=== PATIENT | female | born 1935 | race African-American/Black ===

== ENCOUNTER 2025-01-01 09:59 | Outpatient (AMB) | payer MEDICARE, SELFPAY ==
--- OUTSIDE RECORDS SUMMARY | 2023-07-18 10:15 | XMS_ITS ---
Author Organization [facility], [place] Address [address] [facility] [address] [place] [address] Care Team Providers Care Applications Programmer Name Role Phone Migration, Provider Unavailable Unavailable REASON FOR VISIT Follow-up Appt Encounters Encounter Location Date Provider Diagnosis [address] [place] [address] 07/18/2023 Provider Migration Plan Of Treatment Next Appt Details Provider Name:Consuelo Mukul bueno, 02/20/2025 01:45:00 PM, [address] [place] [address], Suite [facility], [place], [address], [phone] Progress Notes * LISSY PRIETOEDOB: [birth year] (89 yo F)Acc No.[id number]:07/18/2023 Progress Notes Patient: MELY LEDBETTER Provider: Dell rovider Migration :1935 A ge:88 Y S ex:Female Date:07/18/2023 Address:[address] [place], [place] [phone] Subjective: * Chief Complaints: * F ollow-up Appt * Ocular Surgical History: Objective: Vision Examination: * Electronic signature of Prov ider Migration on 01/01/2025 at 12:05 PM EDT Sign off status: Pending * Provider: Dell chamberlainvider Migration Date: 07/18/2023 Generated for Fran ng/Fafabieng/eTransmitting on: 1 12:05 PM EDT
--- OUTSIDE RECORDS SUMMARY | 2023-08-22 12:00 | XMS_ITS ---
Author Organization [facility], [place] Address [address] [facility] [address] [place] [address] Care Team Providers Care Car Pusher Name Role Phone Migration, Provider Unavailable Unavailable REASON FOR VISIT Sick Visit Encounters Encounter Location Date Provider Diagnosis [address] [address] 08/22/2023 Provider Migration Plan Of Treatment Next Appt Details Provider Name:Consuelo Mukul bueno, 02/20/2025 01:45:00 PM, [address] [place] [address], [place] [address], [place], [address], [phone] Progress Notes * LISSY PRIETOEDOB: [birth year] (89 yo F)Acc No.[id number]:08/22/2023 Progress Notes Patient: MELY LEDBETTER Provider: Dell fraser Migration :1935 A ge:88 Y S ex:Female Date:08/22/2023 Address:[address] [place], [place] [phone] Subjective: * Chief Complaints: * S ick Visit * Ocular Surgical History: Objective: Vision Examination: * Electronic signature of Prov ider Migration on 01/01/2025 at 12:05 PM EDT Sign off status: Pending * Provider: Dell fraser Migration Date: 08/22/2023 Generated for Fran javed/Yousif/eTclarasmitting on: 1 12:05 PM EDT
--- OUTSIDE RECORDS SUMMARY | 2023-10-10 07:00 | XMS_ITS ---
Author Organization [facility], [place] Address [address] [facility] [address] [place] [address] Care Team Providers Care Putty And Caulking Supervisor Name Role Phone Migration, Provider Unavailable Unavailable REASON FOR VISIT Sick Visit Encounters Encounter Location Date Provider Diagnosis [address] [address] 10/10/2023 Provider Migration Plan Of Treatment Next Appt Details Provider Name:Consuelo Mukul bueno, 02/20/2025 01:45:00 PM, [address] [place] [address], [place] [address], [place], [address], [phone] Progress Notes * LISSY PRIETOEDOB: [birth year] (89 yo F)Acc No.[id number]:10/10/2023 Progress Notes Patient: EMLY LEDBETTER Provider: Dell fraser Migration :1935 A ge:88 Y S ex:Female Date:10/10/2023 Address:[address] [place], [place] [phone] Subjective: * Chief Complaints: * S ick Visit * Ocular Surgical History: Objective: Vision Examination: * Electronic signature of Prov ider Migration on 01/01/2025 at 12:05 PM EDT Sign off status: Pending * Provider: Dell fraser Migration Date: 0 10/10/2023 Generated for Fran javed/Yousif/eTransmitting on: 1 12:05 PM EDT
--- OUTSIDE RECORDS SUMMARY | 2023-11-30 06:00 | XMS_ITS ---
Author Organization [facility] [place] Address [address] [facility] [address] [place] [address] Care Team Providers Care Adjunct Communications Faculty Member Name Role Phone Migration, Provider Unavailable Unavailable REASON FOR VISIT CPX Encounters Encounter Location Date Provider Diagnosis [address] [address] 11/30/2023 Provider Migration Plan Of Treatment Next Appt Details Provider Name:Consuelo Mukul bueno, 02/20/2025 01:45:00 PM, [address] [place] [address], [place] [address], [place], [address], [phone] Progress Notes * CONNER, BESSIEDOB: [birth year] (89 yo F)Acc No.[id number]:11/30/2023 Progress Notes Patient: MELY LEDBETTER Provider: Dell fraser Migration :1935 A ge:88 Y S ex:Female Date:11/30/2023 Address:[address] [place], [place] [phone] Subjective: * Chief Complaints: * C PX * Ocular Surgical History: Objective: Vision Examination: * Electronic signature of Prov ider Migration on 01/01/2025 at 12:04 PM EDT Sign off status: Pending * Provider: Dell fraser Migration Date: 0 11/30/2023 Generated for Fran javed/Yousif/eTransmitting on: 1 12:04 PM EDT
--- OUTSIDE RECORDS SUMMARY | 2024-02-29 11:45 | XMS_ITS ---
Author Organization [facility], [place] Address [address] [facility] [address] [place] [address] Care Team Providers Care Illuminating Engineer Name Role Phone Migration, Provider Unavailable Unavailable REASON FOR VISIT Follow-up Appt Encounters Encounter Location Date Provider Diagnosis [address] [place] [phone] 02/29/2024 Provider Migration Plan Of Treatment Next Appt Details Provider Name:Consuelo Mukul Adentaz myles, 02/20/2025 01:45:00 PM, [address] [place] [address], Suite [facility], [place], [address], [phone] Progress Notes * LISSY PRIETOEDOB: [birth year] (89 yo F)Acc No.[id number]:02/29/2024 Progress Notes Patient: MELY LEDBETTER Provider: Dell chamberlainvider Migration :1935 A ge:88 Y S ex:Female Date:02/29/2024 Address:[address] [place], [place] [phone] Subjective: * Chief Complaints: * F ollow-up Appt * Ocular Surgical History: Objective: Vision Examination: * Electronic signature of Prov ider Migration on 01/01/2025 at 12:04 PM EDT Sign off status: Pending * Provider: Dell chamberlainvider Migration Date: 05/01/2023 Generated for Fran ng/Fafabieng/eTransmitting on: 12:04 PM EDT
--- OUTSIDE RECORDS SUMMARY | 2024-03-04 10:00 | XMS_ITS ---
Author Organization [facility], [place] Address [address] [facility] [address] [place] [address] Care Team Providers Care Casket Assembler Metal Name Role Phone Migration, Provider Unavailable Unavailable REASON FOR VISIT Follow-up Appt Encounters Encounter Location Date Provider Diagnosis [address] [place] [address] 03/04/2024 Provider Migration Plan Of Treatment Next Appt Details Provider Name:Consuelo Mukul Adentaz myles, 02/20/2025 01:45:00 PM, [address] [place] [address], Suite [facility], [place], [address], [phone] Progress Notes * LISSY PRIETOEDOB: [birth year] (89 yo F)Acc No.[id number]:03/04/2024 Progress Notes Patient: MELY LEDBETTER Provider: Dell rovider Migration :1935 A ge:88 Y S ex:Female Date:03/04/2024 Address:[address] [place], [place] [phone] Subjective: * Chief Complaints: * F ollow-up Appt * Ocular Surgical History: Objective: Vision Examination: * Electronic signature of Prov ider Migration on 01/01/2025 at 12:05 PM EDT Sign off status: Pending * Provider: Dell chamberlainvider Migration Date: Generated for Fran ng/Fafabieng/eTransmitting on: 12:05 PM EDT
--- OUTSIDE RECORDS SUMMARY | 2024-07-01 06:00 | XMS_ITS ---
Author Organization [facility], [place] Address [address] [facility] [address] [place] [address] Care Team Providers Care Rolling Machine Operator Automatic Name Role Phone Kenneth Parks Unavailable [phone] REASON FOR VISIT Follow-up Appt Encounters Encounter Location Date Provider Diagnosis [address] [place] [phone] 07/01/2024 Kenneth Parks Plan Of Treatment Next Appt Details Provider Name:Consuelo bueno, 02/20/2025 01:45:00 PM, [address] [place] [address], Suite [facility], [place], [address], [phone] Progress Notes * SAHIL PRIETOOB: [birth year] (89 yo F)Acc No.[id number]:07/01/2024 Progress Notes Patient: MELY LEDBETTER Provider: Oli PAULINO :1935 A ge:89 Y S ex:Female Date:07/01/2024 Address:[address] [place], [place] [phone] Subjective: * Chief Complaints: * F ollow-up Appt * Ocular Surgical History: Objective: Vision Examination: * Electronic signature of Florencio Parks PA-C on 01/01/2025 at 12:05 PM EDT Sign off status: Pending * Provider: Oli PAULINO Date: 0 07/01/2024 Generated for Printi ng/Faxing/eTransmitting on: 1 12:05 PM EDT
--- NOTE | 2025-01-01 10:11 | A.OFFVIS_ITS ---
Vital Signs 01/01/25 10:24 Height 5 ft 6.5 in Weight 141 lb BMI 22.4 BP 138/70 Blood Pressure Location Rt brachial Position Sitting Respiration 16 Pulse 37 L Pulse Source Pulse Oximeter Pulse Oximetry (%) 99 Oxygen Delivery Method Room Air Comment provider is aware of low pulse Intake Visit Reasons: DEMENTIA Director Hardware Required: No Accompanied by: Son Allergies yellow dye Allergy (Unknown, Verified 01/01/25 10:13) Unknown Medication List - Last Reconciled 01/01/25 by Rozina Mello CNP albuterol sulfate 90 mcg/actuation 1 puff inhalation Q4H PRN atorvastatin 40 mg PO DAILY guqdidgwcss-kpskqnavr-nkmtvmkl 200-62.5-25 mcg (Trelegy Ellipta) 1 ea inhalation DAILY losartan-hydrochlorothiazide 50-12.5 mg 1 tab PO DAILY HPI Comments Details: Cee is an 89 year old female patient with a past medical history of asthma, cancer, COPD, and hypertension who is presenting to the clinic today for increased forgetfulness. She is accompanied today by her son. Together they report that over the course over the last 6 months she has had an increase in gait instability and some forgetfulness. Her family has noticed some intermittent forgetfulness over the course of the last year or 6 months. She will occasionally forget names of her children but this is rare. She generally uses a walking stick with 4 legs on the bottom. She does feel less stable over the course of the last 6 months or so and and attributes that to some lack of activity more recently. Physical therapy in the home was ordered for her gait and it was felt that PT made a small difference in her walking. She had a fall on the stairs in May and again about 1 month ago when she was walking, lost her balance and was able to brace herself on the wall. Her has severe Alzheimers Dementia and family is living in the home with them. Memory evaluation: Onset of memory changes: Changes over the last 6 months or so Rate of progression: Slow Cognitive: Difficulty remembering upcoming events:Yes Getting lost:Does not walk or drive alone Difficulty keeping track of time:No Difficulty finding appropriate words:Sometimes Difficulty making decisions or problem-solving:No Functional: Difficulty writing checks, paying bills: Family has taken over her finances Difficulty driving a car:Does not drive Difficulty shopping alone:Family goes grocery shopping for her Difficulty performing household tasks:Yes, family assists with this Difficulty managing own medications:Family assists Difficulty pursuing hobbies/leisure activities:Yes, due to her own health and 's health Change in gait:Yes, she feels weaker and less balanced Social activities: Difficulty holding conversation: No Decreased social activity with family/friends:No Less cooperative:No Less aware of others feeling/her full:No Less concerned about bathing/dressing/grooming: No Behavioral: Sad, depressed:No Anxious, worried:No Inpatient, fidgety:No Acts impulsively, disinhibited:No Change appetite or weight:No Change in sleep pattern, daytime fatigue:No Hallucinations:No PFSH Medical History (Updated 01/01/25 @ 10:58 by Rozina Mello CNP) Asthma Forgetfulness Essential hypertension HLD (hyperlipidemia) COPD (chronic obstructive pulmonary disease) Surgical History (Updated 01/01/25 @ 10:11 by Heri Monge CMA) Previous back surgery H/O: hysterectomy Review of Systems Const All systems reviewed & are unremarkable except as noted in HPI and below Physical Exam Vital Signs: Last Vital Signs Pulse 37 L 01/01/25 10:24 Resp 16 01/01/25 10:24 BP 138/70 01/01/25 10:24 Pulse Ox 99 01/01/25 10:24 Oxygen Delivery Method Room Air 01/01/25 10:24 BMI result Body Mass Index 22.4 Const General: cooperative, healthy appearing, comfortable and no acute distress Nutritional Appearance: well nourished Orientation/consciousness: patient oriented x3 Limitations: no limitations HEENT Head: Yes normal to inspection and Yes normocephalic Eyes General: appearance normal, both eyes and all related structures Visual Navarro: normal visual navarro by confrontation Alignment and Position: alignment normal Periorbital: periorbital findings normal Eyelids: Yes eyelids normal Conjunctivae: conjunctivae normal Sclerae: sclerae normal Neuro General: patient oriented x3 and tone normal Cranial nerves: Yes CN's II-XII intact bilaterally Gait exam (Neuro): Wide-based gait present, Assisted gait required Gait assisted method: walker and Other gait observations present (Slow ) Motor exam (neuro): no tremor noted Romberg Test: Negative Pupils: Normal pupillary reactivity/response: bilateral Psych Appearance: grossly normal Mental Status: mental status grossly normal Speech and movement: Normal speech and movement present and Clear speech present Affect: normal affect Attitude: cooperative Thought process: Normal thought process present Thought content: Normal thought content present Insight: Good insight present (Psych) Judgement: Good judgement present (Psych) Assessment & Plan Assessment & Plan (1) Gait instability: Code(s): R26.81 - Unsteadiness on feet Category: Medical (2) Memory change: Code(s): R41.3 - Other amnesia Category: Medical Plan Cee is an 89 year old female patient with a past medical history of asthma, cancer, COPD, and hypertension who is presenting to the clinic today for increased forgetfulness. She is accompanied today by her son. Overall there has been some notable changes to her memory over the course of the last 6 months or so. She is living home with her who has advanced A lzheimer's dementia but 1 of her sons does live with them and assists with all of the affairs around the home. Her MMSE score today was 22/30. We discussed if whether or not she would like to start on any medications for her day-to-day cognitive functioning but patient family declined. There was no indication for any medication for mood management at this time. For now, they are looking to ensure that there was nothing else underlying going on that can be prevented in terms of her memory. For now, we will proceed with CT of the brain to evaluate for degree of atrophy, ventricle size, and white matter disease. We will also perform labs including a B12 and TSH level. We will follow up in approximately 6 weeks after her testing has been completed. -ct brain -labs:b12, tsh Orders: Orders Vitamin B12 01/01/25 R26.81 - Unsteadiness on feet, R41.3 - Other amnesia TSH reflex Free T4 01/01/25 R26.81 - Unsteadiness on feet, R41.3 - Other amnesia CT head/brain wo IV con Today R26.81 - Unsteadiness on feet, R41.3 - Other am nesia Methylmalonic Acid 01/01/25 R26.81 - Unsteadiness on feet, R41.3 - Other amnesia Coding Level of Care Code New Pt Level 4 (86161) Diagnoses Gait instability R26.81 Memory change R41.3
[2025-01-01 10:24] VITALS: BP 138/70; PULSE 37; RESP 16; O2SAT 99; BMI 22.4
--- OUTSIDE RECORDS SUMMARY | 2025-01-01 12:04 | XMS_ITS ---
Author Name [facility] Organization Unknown Encounters Encounter Type Encounter Reason Primary Diagnosis Location Date Ambulatory [facility] 05/06/2024 Care Team Organization Name Specialty Phone Email Start Date End Da te [facility] 2024 [facility] 09/21/2023 [facility] 01/11/2022
--- OUTSIDE RECORDS SUMMARY | 2025-01-01 12:04 | XMS_ITS | Patient Health Record ---
Author Organization [facility] Address [address] [place] [address] Care Team Providers Care Overhead Crane Truck Loader Name Role Phone JelaniKenneth lima Unavailable [phone] Migration, Provider Unavailable Unavailable Shilpa Joya Unavailable [phone] Consuelo Can Unavailable [phone] Allergies No Known Allergies Reason For Referral Reason pt presents with son who requests she see Dr. 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) Referral Organization [facility] Referring Provider First Name Consuelo Referring Provider Last Name Can Referred Provider Specialty Neurology Referral Priority Routine Reason Patient's son believ es she is aspirating Diagnosis 1 Pneumonitis due to i nhalation of food and vomit (J69.0) Referral Organization [facility] Referring Provider First Name Consuelo Referring Provider Last Name Pamella Referred Provider Specialty Speech and l anguage therapist Referral Priority Routine Reason worsening COPD Diagnosis 1 COPD, 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) Referral Organization [facility] Referring Provider First Name Consuelo Referring Provider Last Name Can Referred Provider Specialty Pulmonary Di seases Referral Priority Routine Reason Patient Need attenti on to her thickened nails and has seen this practice previously. Dr. Kana Giron Diagnosis 1 Onychogryphosis (L60 .2) Referral Organization [facility] Referring Provider First Name Consuelo Referring Provider Last Name Can Referred Provider Specialty Podiatry Referral Priority Routine Medications Medication SIG (Take, Route, Frequency, Duration) Notes Start Date End Date Status Losartan Potassium 50 MG Tablet 1 tablet Orally Once a day Active Caltrate 600+D Plus Minerals Active Azelastine-Fluticasone 137-50 MCG/ACT Suspension 1 spray in each nostril Nasally Twice a day Active Aspirin 81 MG Tablet Chewable 1 tablet Orally Once a day Active amLODIPine Besylate 10 MG Tablet 1 tablet Orally Once a day Active Ventolin HFA 108 (90 Base) MCG/ACT Aerosol Solution 1 puff as needed Inhalation every 4 hrs; Duration: 90 days As needed Active Atorvastatin Calcium 40 MG Tablet Take 1 tablet by mouth once daily Orally Once a day; Duration: 30 days Active Losartan Potassium-HCTZ 50-12.5 MG Tablet 1 tablet Orally Once a day; Duration: 90 days 11/20/2024 Active Trelegy Ellipta 200-62.5-25 MCG/ACT Aerosol Powder Breath Activated 1 puff Inhalation Once a day; Duration: 90 days Active Azithromycin 250 MG Tablet as directed Orally 3 days left Active prednisoLONE Not-Jc ing Cefuroxime Sodium 7 days left Active Albuterol Sulfate (2.5 MG/3ML) 0.083% Nebulization Solution 3 mL as needed Inhalation every 6 hrs; Duration: 90 days 12/25/2024 Active Social History Section Notes: drink: no smoke: no Problems Problem Type SNOMED Code ICD Code Onset Dates Problem Status W/U Status Risk Notes Problem Hyperlipidemia (46095016) Hyperlipidemia, unspecified (E78.5) Active confirmed Problem Essential hypertension (94616962) Essential (primary) hypertension (I10) Active confirmed Problem Uncomplicated asthma (disorder) (400785541) Unspecified asthma, uncomplicated (J45.909) Active confirmed Problem Chronic obstructive pulmonary disease (14255280) COPD, 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) Active confirmed Problem Acute exacerbation of chronic obstructive airways disease (778176337) COPD exacerbation (J44.1) Active confirmed Problem Chronic obstructive pulmonary disease (39319242) COPD, moderate (J44.9) Active confirmed Vital Signs Heart Rate 40 /min 12/25/2024 Temperature 98.6 degrees Fahrenheit 11/08/2024 Respiratory Rate 14 /min 12/25/2024 Oximetry 100 % 12/25/2024 Blood pressure diastolic 66 mm Hg 12/25/2024 Weight-kg 57.7 kg 12/25/2024 Blood pressure systolic 158 mm Hg 12/25/2024 Weight 127.2 lbs 12/25/2024 Encounters Encounter Location Date Provider Diagnosis [address] [address] 02/29/2024 Provider [facility], [address] [address] 03/04/2024 Provider [facility], [address] [address] 07/01/2024 Kenneth Parks [facility] [address] [address] 10/30/2024 Consuelo Can Unspecified asthma, uncomplicated J45.909 [facility], [address] [address] 11/08/2024 Consuelo Can COPD, severe J44.9 ; Hyperlipidemia, unspecified E78.5 ; Essential (primary) hypertension I10 and Hospital discharge follow-up Z09 [facility], [address] [address] 12/25/2024 Consuelo Can COPD, severe J44.9 [facility], [address] [address] 11/20/2024 Shilpa Joya [facility], [address] [address] 11/06/2024 Consuelo Can [facility], [address] [address] 12/09/2024 Consuelo Can [facility], [address] [address] 12/09/2024 Shilpa Joya Assessments Encounter Date Diagnosis (ICD Code) Assessment Notes Treatment Notes Treatment Clinical Notes Section Notes 10/30/2024 Unspecified asthma, uncomplicated (ICD-10 - J45.909) patient telemedicine for refill of rx 11/08/2024 Hyperlipidemia, unspecified (ICD-10 - E78.5) patient into th e office today for a hospital er follow up. She presents with her son. He is requesting referrals to Dr. Thompson at neurology, Sleep study for swallow eval and referral to pulmonary 11/08/2024 COPD, severe (ICD-10 - J44.9) patient into th e office today for a hospital er follow up. She presents with her son. He is requesting referrals to Dr. Thompson at neurology, Sleep study for swallow eval and referral to pulmonary 12/25/2024 COPD, severe (ICD-10 - J44.9) Electronic Prior Authorization was requested for Albuterol Sulfate (2.5 MG/3ML) 0.083% Nebulization Solution. Provider can order medication once approval received. Written order for Nebulizer and all required supplies faxed to [facility] Patient into the office today with her son as prompted by [facility] and most recent hospitalization to obtain a nebulizer machine. 11/08/2024 Essential (primary) hypertension (ICD-10 - I10) patient into the office today for a hospital er follow up. She presents with her son. He is requesting referrals to Dr. Thompson at neurology, Sleep study for swallow eval and referral to pulmonary 11/08/2024 Hospital discharge follow-up (ICD-10 - Z09) patient into the office today for a hospital er follow up. She presents with her son. He is requesting referrals to Dr. Thompson at neurology, Sleep study for swallow eval and referral to pulmonary Plan Of Treatment Next Appt Details Provider Name:Consuelo bueno, 02/20/2025 01:45:00 PM, [address] [facility], [address], [place], [address], [phone] Insurance Providers Payer Name Payer Address Payer Phone Subscriber Number Group Number Insured Name Patient Relationship to Insured Coverage Start Date Coverage End Date [employer] [address] [place] [address] [id number] MELY RICHARDSON Self - patient is the insured [facility] Options [address] [place] [address] [id number] MELY RICHARDSON Self - patient is the insured Medical (General) History Hospitalization History Reason Date(Month/Year) breathing trouble 2024
--- OUTSIDE RECORDS SUMMARY | 2025-01-01 12:04 | XMS_ITS | Encounter Summary ---
Author Organization [facility] Address [address] [place] [address] Phone Care Team Providers Care Brick Tender Name Role Phone Zhao Mendoza MD Primary Care Provider + Zhao Mccabe MD Unavailable [phone] Eugene Márquez MD Unavailable [phone] Solo Hanley MD Unavailable [phone] Encounter Details Date Type Department Care Team (Late st Contact Info) Description 04/18/2017 Procedure Pass [facility] [address] [place] [address] Social History Tobacco Use Types Packs/Day Years Used Date Smoking Tobacco: Former Cigarettes 0.3 22 1 03/07/1993 - 01/06/2016 Smokeless Tobacco: Never Alcohol Use Standard Drinks/Week Comments No 0 (1 standard drink = 0.6 oz pur e alcohol) Comments Unknown Sex and Gender Information Value Date Recorded Sex Assigned at Not on file Legal Sex Female 7:31 PM EST Gender Identity Not on file Sexual Orientation Not on file documented as of this encounter Plan of Treatment Upcoming Encounters Date Type Department Care Team (Late Contact Info) Description 02/06/2024 Procedure Pass [facility] - CT, [facility] [place] [address] [place] [address] 02/06/2024 Procedure Pass [facility] - CT, [place] [facility] [address] [place] [address] 02/05/2025 1:30 PM EST Appointment [facility] - CT, [place] [facility] [address] [place] [address] Solo Hanley MD [address] [place] [address] [email or web address] 02/05/2025 2:00 PM EST Appointment [facility] - CT, [place] [facility] [address] [place] [address] Solo Hanley MD [address] [place] [address] [email or web address] 02/17/2025 11:00 AM EST Telemedicine Department of Urology [address] [address] O'Marifer, Naina Russell, DETONATOR MAKER [address] [address] [email or web address] documented as of this encounter Visit Diagnoses Not on filedocumented in this encounter Care Teams Brick Tender Relationship Specialty Start Date End Date Zhao Mendoza MD [address] [place] [address] [address] [place] [address] PCP - General 09/03/13 Zhao Mccabe MD [address] [facility] [address] [place] [address] Cardiology 08/19/14 Eugene Márquez MD [address] [place] [address] Division [place] [address] [email or web address] 11/06/14 Sloo Hanley MD [address] [place] [address] [email or web address] Urology 03/22/18 documented as of this encounter Additional Source Comments The information contained in this document represents components of the legal health record. It is not the complete legal health record.[facility]
--- OUTSIDE RECORDS SUMMARY | 2025-01-01 12:05 | XMS_ITS | Encounter Summary ---
Author Organization [facility] Address [address] [place] [address] Phone Care Team Providers Care Contact Lens Manufacturer Name Role Phone Zhao Mendoza MD Primary Care Provider + Zhao Mccabe MD Unavailable [phone] Eugene Márquez MD Unavailable [phone] Solo Hanley MD Unavailable [phone] Encounter Details Date Type Department Care Team (Late st Contact Info) Description 06/06/2017 Procedure Pass [facility]. [facility] [address] [facility] [facility] 1st [place] [address] Social History Tobacco Use Types Packs/Day Years [...] Encounters Date Type Department Care Team (Late st Contact Info) Description 02/06/2024 Procedure Pass [facility] - [facility], [facility] [address] [place] [address] 02/06/2024 Procedure Pass [facility] - CT, [facility] [address] [place] [address] 02/05/2025 1:30 PM EST Appointment [facility] - [place], [facility] [address] [place] [address] Solo Hanley MD [address] [place] [phone] [email or web address] 02/05/2025 2:00 PM EST Appointment [facility] - CT, [facility] [address] [place] [address] Solo Hanley MD [address] [place] [address] 02/17/2025 11:00 AM EST Telemedicine Department of Urology [address] [place] [address] O'Marifer, Naina Russell, [employer] MAKER [address] [address] [email or web address] documented as of this encounter Visit Diagnoses Not on filedocumented in this encounter Care Teams Contact Lens Manufacturer Relationship Specialty Start Date End Date Zhao Mendoza MD 299 [facility] [address] [place] [address] PCP - General 09/03/13 Zhao Mccabe MD 300 [facility] [address] [place] [address] Cardiology 08/19/14 Eugene Márquez MD [address] [place] [address] Division [place] [address] [email or web address] 11/06/14 Solo Hanley MD [address] [place], [place] [address] [place] [address] [email or web address] Urology 03/22/18 documented as of this encounter Additional Source Comments The information contained in this document represents components of the legal health record. It is not the complete legal health record.[facility]
--- OUTSIDE RECORDS SUMMARY | 2025-01-01 12:05 | XMS_ITS | Clinical Summary ---
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 Remove & discard patch within 12 hours or as directed by MD. 30 patch 5 Active fluticasone propionate (FLONASE) 50 mcg/actuation nasal spray Administer 1 spray into each nostril 2 (two) times a day. Shake gently. Before first use, prime pump. After use, clean tip and replace cap. 16 g 5 Active atorvastatin (LIPITOR) 40 mg tablet Take 1 tablet (40 mg total) by mouth 1 (one) time each day. Active losartan-hydroC HLOROthiazide (HYZAAR) 50-12.5 mg per tablet Take 1 tablet by mouth 1 (one) time each day. Active Ventolin HFA 90 mcg/actuation inhaler Inhale 2 puffs by mouth 4 (four) times a day if needed for wheezing or shortness of breath. 6.7 g 11 5 Active predniSONE (DELTASONE) 50 mg tablet Take 1 tablet (50 mg total) by mouth 1 (one) time each day for 4 days. 4 each 5 12/10/19 25 Active Problems Problem Noted Date Diagnosed Date Pneumonia 11/03/2024 COPD with acute exacerbation ([facility] V24, [facility] V28) 08/03/2024 Encounters Date Type Department Care Team Description 12/04/2024 2:04 AM EDT - 12/04/2024 7:06 AM EDT Emergency [facility] Emergency [address] [place] [phone] Mariano Newton MD COPD exacerbation ([facility], [facility] V[facility]) (Primary Dx) Discharge Disposition: Home or Self Care 11/05/2024 1:15 AM EDT - 11/05/2024 2:24 AM EDT Emergency [facility] Emergency [address] [place] [phone] Cain Hernandez MD COPD exacerbation ([facility], [facility] V28) (Primary Dx); Community acquired pneumonia of right lung, unspecified part of lung Discharge Disposition: Home or Self Care 11/03/2024 5:27 AM EDT - 11/04/2024 12:21 PM EDT Hospital Encounter [facility] Urology Unit [address] [place] [phone] Samir Raza MD Muhoozi, Bannet, MD Bukalo, Nermina, MD Alam, Aroosa, MD COPD exacerbation ([facility] V[facility], [facility] V28) (Primary Dx); Respiratory infection; Pneumonia of right lower lobe due to infectious organism Discharge Disposition: Home-Health Care [facility] from Last 3 Months Surgical History Surgery Date Site/Laterality Comments BREAST LUMPECTOMY Left Medical History Medical History Date Comments Hypertension Asthma A-fib ([facility] V24, [facility] V28) Hyperlipidemia COPD (chronic obstructive pulmonary disease) ([facility] V24, [facility] V[facility]) Social History Tobacco Use Types Packs/Day Years Used Date Smoking Tobacco: Former Cigarettes Smokeless Tobacco: Never Tobacco Cessation:Counseling Given: Not Answered Alcohol Use Standard Drinks/Week Comments Not Currently 0 (1 standard drink = 0.6 oz pur e alcohol) Housing Instability Answer Date Recorde d Are you worried that in the next 2 months you may not have stable housing? No 08/03/2024 Food Access & Nutrition Answer Date Rec orded Do you have access to a vari ety of food including fruits and vegetables? No 08/03/2024 Access to Healthcare Answer Date Record ed Within the last 3 months, ho w many times did you visit the emergency department for your medical care? 2 08/03/2024 Health Literacy Answer Date Recorded How often do you need to hav e someone help you when you read instructions, pamphlets, or other written material from your doctor or pharmacy? Never 08/03/2024 Caregiver: How often do you need to have someone help you when you read instructions, pamphlets, or other written material from your doctor or pharmacy? Not on file 08/03/2024 Financial Risk Answer Date Recorded How hard is it for you to pa y for the very basics like food, housing, medical care, and air conditioning / heating? Not very hard 08/03/2024 Transportation Answer Date Recorded Has the lack of transportati on kept you from meetings, work, or from getting things needed for daily living? No Has the lack of transportati on kept you from medical appointments or from getting medications? No 08/03/2024 Social Isolation Answer Date Recorded How often do you feel lonely or isolated from those around you? Sometimes 08/03/2024 Food Risk Answer Date Recorded Within the past 12 months we worried whether our food would run out before we got money to buy more. Never true 08/03/2024 Within the past 12 months th e food we bought just didn't last and we didn't have money to get more. Never true 08/03/2024 Dependent Care Answer Date Recorded Do you need help finding or paying for care for your loved ones. For example, child and family services specialist or elderly care for an older adult? No 08/03/2024 Education Answer Date Recorded Do you think completing more education or training, like finishing a GED, going to college, or learning a trade, would be helpful for you? No 08/03/2024 Employment and Income Answer Date Recor ded During the last four weeks, have you been actively looking for work? No 08/03/2024 Interpersonal Safety Answer Date Record ed Physical Abuse Unrecognized value 11/03/2024 Verbal Abuse Unrecognized value 11/03/2024 Comments No Sex and Gender Information Value Date Recorded Sex Assigned at Female 06/22/2024 5:23 PM EDT Legal Sex Female 12:30 PM EST Gender Identity Female 06/22/2024 5:23 PM EDT Sexual Orientation Straight 06/22/2024 5: 23 PM EDT Obstetrics History Last Filed Vital Signs Vital Sign Reading Time Taken Comments Blood Pressure 154/79 12/04/2024 2:24 AM EDT Pulse 59 12/04/2024 2:24 AM EDT Temperature 36.6 C (97.9 F) 12/04/2024 2:24 AM EDT Respiratory Rate 18 12/04/2024 2:24 AM EDT Oxygen Saturation 98% 12/04/2024 2:24 AM EDT Inhaled Oxygen Concentration - - Weight 59.4 kg (131 lb) 12/04/2024 2:52 AM EDT Height 167.6 cm (5' 6 ) 12/04/2024 2:52 AM EDT Body Mass Index 21.14 12/04/2024 2:52 AM EDT Plan of Treatment Health Maintenance Due Date Last Done Comments DTaP,Tdap,and Td Vaccines (1 - Tdap) 1954 Pneumococcal Vaccine: 50+ Years (1 of 2 - PCV) 1954 Zoster Vaccines (1 of 2) 1954 RSV Immunization Adult Patients (1 - 1-dose 75+ series) 2012 Cholesterol Screening (Lipid Panel) 02/01/2022 Medicare Annual Wellness Visit 02/15/2023 02/15/2022 Depression Screening 03/06/2024 COVID-19 Vaccine ( season) 2024 09/23/2021, 12/29/2020, 06/17/2020, Additional history exists Influenza Vaccine (#1) 2024 , 01/14/2021, 12/05/2019, Additional history exists Social Influencers of Health Screening 08/03/2025 08/03/2024 Falls Risk Assessment 11/04/2025 11/04/2024 Hypertension/CHF/CAD Annual BMP Blood Test 12/04/2025 12/04/2024, 11/04/2024, 11/03/2024, Additional history exists Osteoporosis Screening (Bone Density Screening) 11/25/2027 11/24/2017 HIB Vaccines Aged Out No longer eligi ble based on patient's age to complete this topic HPV Vaccines Aged Out No longer eligi ble based on patient's age to complete this topic Hepatitis A Vaccines Aged Out No long er eligible based on patient's age to complete this topic Hepatitis B Vaccines Aged Out No long er eligible based on patient's age to complete this topic IPV Vaccines Aged Out No longer eligi ble based on patient's age to complete this topic MMR Vaccines Aged Out No longer eligi ble based on patient's age to complete this topic Meningococcal ACWY Vaccine Aged Out N o longer eligible based on patient's age to complete this topic Meningococcal B Vaccine Aged Out No l onger eligible based on patient's age to complete this topic RSV Immunization Patients Under 20 months Aged Out No longer eligible based on patient's age to complete this topic Varicella Vaccines Aged Out No longer eligible based on patient's age to complete this topic Procedures Procedure Name Priority Date/Time Associated Diagnosis Comments ECG ANNOTATED 12/05/2024 XR CHEST 1 VIEW STAT 12/04/2024 3:37 AM EDT ECG 12-LEAD STAT 12/04/2024 3:24 AM EDT RESPIRATORY VIRUS PANEL MOLECULAR STUDY STAT 12/04/2024 3:16 AM EDT CBC WITH AUTO DIFFERENTIAL STAT 12/04/2024 3:14 AM EDT B-TYPE NATRIURETIC PEPTIDE STAT 12/04/2024 3:14 AM EDT CBC AND DIFFERENTIAL STAT 12/04/2024 3:14 AM EDT COMPREHENSIVE METABOLIC PANEL STAT 12/04/2024 3:14 AM EDT COMPLETE BLOOD COUNT Routine 11/04/2024 7:02 AM EDT BASIC METABOLIC PANEL Routine 11/04/2024 7:02 AM EDT URINALYSIS WITH REFLEX MICROSCOPIC STAT 11/03/2024 8:14 PM EDT URINALYSIS WITH REFLEX MICROSCOPIC STAT 11/03/2024 8:14 PM EDT OXYGEN THERAPY, ADULT Routine 11/03/2024 10:27 AM EDT OXYGEN THERAPY, ADULT Routine 11/03/2024 10:[address] CHEST WO CONTRAST STAT 11/03/2024 9:47 AM EDT B-TYPE NATRIURETIC PEPTIDE STAT 11/03/2024 8:13 AM EDT TROPONIN I HIGH SENSITIVITY STAT 11/03/2024 8:13 AM EDT XR CHEST 2 VIEWS STAT 11/03/2024 6:50 AM EDT ECG 12-LEAD STAT 11/03/2024 6:07 AM EDT RESPIRATORY VIRUS PANEL MOLECULAR STUDY STAT 11/03/2024 6:01 AM EDT CBC WITH AUTO DIFFERENTIAL STAT 11/03/2024 5:58 AM EDT CBC AND DIFFERENTIAL STAT 11/03/2024 5:58 AM EDT BASIC METABOLIC PANEL STAT 11/03/2024 5:58 AM EDT LACTATE, WITH REFLEX STAT 11/03/2024 5:58 AM EDT CULTURE BLOOD STAT 11/03/2024 5:58 AM EDT CULTURE BLOOD STAT 11/03/2024 5:58 AM EDT MEKHI DEXA AXIAL SKELETON Routine 11/24/2017 8:34 AM EDT Encounter for screening for osteoporosis from Last 3 Months or Most Recently Relevant to Health Maintenance Results * ECG-Annotated (12/05/2024) us Provider Onbase MD ECG ORDERABLES Final Result * XR Chest 1 View (12/04/2024 3:37 AM EDT) Anatomical Region Laterality Modality Body Radiographic Lay ging 12/04/2024 9:38 AM EDT Impressions 12/04/2024 9:40 AM EDT Impression: 1. Stable borderline cardiomegaly. 2. Lungs grossly clear. Telerad JEFFERSON ([id number]) -------- FINAL REPORT -------- Dictated By: Steph Garcia Dictated Date: 12/04/2024 09:38 ET Assigned Physician: Steph Garcia Reviewed and Electronically Signed By: Steph Garcia Signed Date: 12/04/2024 09:40 ET Workstation ID: [id number] Transcribed By: Self Edit Transcribed Date: 12/04/2024 09:38 ET Narrative 12/04/2024 9:40 AM EDT History: Dyspnea and cough. Comparison: 11/03/24 Findings: Portable semiupright AP chest at 3:26 AM. The cardiac silhouette remains borderline enlarged. Atherosclerotic calcification is seen in the aortic arch. Surgical clips are again seen in the left hilum. The lungs are grossly clear. Procedure Note Steph Garcia MD - 12/04/2024 History: Dyspnea and cough. Comparison: 11/03/24 Findings: Portable semiupright AP chest at 3:26 AM. The cardiac silhouette remainsborderline enlarged. Atherosclerotic calcification is seen in the aorticarch. Surgical clips are again seen in the left hilum. The lungs aregrossly clear. IMPRESSION: Impression: 1. Stable borderline cardiomegaly. 2. Lungs grossly clear. Telerad JEFFERSON ([id number]) -------- FINAL REPORT -------- Dictated By: Steph Garcia Dictated Date: 12/04/2024 09:38 ET Assigned Physician: Steph Garcia Reviewed and Electronically Signed By: Stehp Garcia Signed Date: 12/04/2024 09:40 ET Workstation ID: [id number] Transcribed By: Self Edit Transcribed Date: 12/04/2024 09:38 ET Mariano Newton MD IMG XR PROCEDURES Final Resu lt * 12-Lead ECG (12/04/2024 3:24 AM EDT) Only the most recent of2 resultswithin the time period is included. [facility] Ventricular Rate ECG 56 BPM GEMUSE Atrial Rate 56 BPM GEMUSE P-R Interval 156 ms GEMUSE QRS Duration 100 ms GEMUSE Q-T Interval 454 ms GEMUSE QTc 438 ms GEMUSE R [place] -30 degrees GEMUSE T [place] -107 degrees GEMUSE ECG Interpretation Sinus bradycardia Left axis deviation Minimal voltage criteria for LVH, may be normal variant T wave abnormality, consider inferior ischemia T wave abnormality, consider anterolateral ischemia Abnormal ECG When compared with ECG of 03-NOV-2024 06:07, Sinus rhythm has replaced Atrial fibrillation Inverted T waves have replaced nonspecific T wave abnormality in Inferior leads Inverted T waves have replaced nonspecific T wave abnormality in Anterolateral leads QT has lengthened Confirmed by CAIN DOTY ([id number]) on 12/05/2024 5:37:12 PM GEMUSE 12/04/2024 3:24 AM EDT 12/05/2024 5:37 PM EDT Mariano Newton MD ECG ORDERABLES Final Result GEMUSE * Respiratory virus panel molecular study (12/04/2024 3:16 AM EDT) Only the most recent of2 resultswithin the time period is included. [facility] Adenovirus Detection by PCR Not Detected Not Detected LAB MICROBIOLOGY METHOD 12/04/2024 5:55 AM EDT [facility] Influenza A PCR Not Detected Not Detected LAB MICROBIOLOGY METHOD 12/04/2024 5:55 AM EDT [facility] Influenza B PCR Not Detected Not Detected LAB MICROBIOLOGY METHOD 12/04/2024 5:55 AM EDT [facility] Coronavirus 229E Not Detected Not Detected LAB MICROBIOLOGY METHOD 12/04/2024 5:55 AM EDT [facility] Coronavirus HKU1 Not Detected Not Detected LAB MICROBIOLOGY METHOD 12/04/2024 5:55 AM EDT [facility] Coronavirus OC43 Not Detected Not Detected LAB MICROBIOLOGY METHOD 12/04/2024 5:55 AM EDT [facility] Coronavirus NL63 Not Detected Not Detected LAB MICROBIOLOGY METHOD 12/04/2024 5:55 AM EDT [facility] Parainfluenza Virus 1 Not Detected Not Detected LAB MICROBIOLOGY METHOD 12/04/2024 5:55 AM EDT [facility] Parainfluenza Virus 2 Not Detected Not Detected LAB MICROBIOLOGY METHOD 12/04/2024 5:55 AM EDT [facility] Parainfluenza Virus 3 Not Detected Not Detected LAB MICROBIOLOGY METHOD 12/04/2024 5:55 AM EDT [facility] Parainfluenza Virus 4 Not Detected Not Detected LAB MICROBIOLOGY METHOD 12/04/2024 5:55 AM EDT [facility] RSV PCR Not Detected Not Detected LAB MICROBIOLOGY METHOD 12/04/2024 5:55 AM EDT [facility] Human Metapneumovirus A and B Not Detected Not Detected LAB MICROBIOLOGY METHOD 12/04/2024 5:55 AM EDT [facility] Rhinovirus/Entero virus Not Detected Not Detected LAB MICROBIOLOGY METHOD 12/04/2024 5:55 AM EDT [facility] Bordetella pertussis Not Detected Not Detected LAB MICROBIOLOGY METHOD 12/04/2024 5:55 AM EDT [facility] Bordetella parapertussis Not Detected Not Detected LAB MICROBIOLOGY METHOD 12/04/2024 5:55 AM EDT [facility] Mycoplasma pneumo by PCR Not Detected Not Detected LAB MICROBIOLOGY METHOD 12/04/2024 5:55 AM EDT [facility] Chlamydia pneumoniae Not Detected Not Detected LAB MICROBIOLOGY METHOD 12/04/2024 5:55 AM EDT [facility] SARS COV-2 Not Detected Not Detected LAB MICROBIOLOGY METHOD 12/04/2024 5:55 AM EDT [facility] Swab Both anterior nares / Unknown Non-blood Collection / Unknown 12/04/2024 3:16 AM EDT 12/04/2024 4:54 AM EDT [facility] - 12/04/2024 5:55 AM EDT Testing was performed using the [employer] Respiratory Pathogen PCR Assay. All results must be correlated with the clinical findings. Results should not be used as the sole basis for diagnosis. False Negative results may occur from the presence of sequence variants in the region targeted by the assay or the presence of inhibitors. Results may be affected by concurrent antiviral/antimicrobial therapy or levels of organisms that are below the limit of detection. us Mariano Newton MD LAB MICROBIOLOGY - GENERAL O RDERABLES Final Result [facility] [address] [place] [address], [place] [phone] * (ABNORMAL) CBC auto differential (12/04/2024 3:14 AM EDT) Only the most recent of2 resultswithin the time period is included. WBC 3.7(L) 4.8 - 10.8 K/mcL LAB HEMETOLOGY METHOD 12/04/2024 5:09 AM EDT [facility] RBC 4.00 3.80 - 4.80 M/mcL LAB HEMETOLOGY METHOD 12/04/2024 5:09 AM EDT [facility] Hemoglobin 11.6 11.5 - 16.0 g/dL LAB HEMETOLOGY METHOD 12/04/2024 5:09 AM [facility] Hematocrit 36.4 35.0 - 47.0 % LAB HEMETOLOGY METHOD 12/04/2024 5:09 AM [facility] MCV 90.1 79.0 - 98.0 FL LAB HEMETOLOGY METHOD 12/04/2024 5:09 AM [facility] MCH 28.7 27.0 - 32.0 pcg LAB HEMETOLOGY METHOD 12/04/2024 5:09 AM [facility] MCHC 31.9(L) 32.0 - 37.0 g/dL LAB HEMETOLOGY METHOD 12/04/2024 5:09 AM [facility] RDW 15.4(H) 11.0 - 15.0 % LAB HEMETOLOGY METHOD 12/04/2024 5:09 AM [facility] Platelets 179 130 - 400 K/mcL LAB HEMETOLOGY METHOD 12/04/2024 5:09 AM [facility] MPV 12.2(H) 7.0 - 11.0 FL LAB HEMETOLOGY METHOD 12/04/2024 5:09 AM [facility] NRBC 0.0 <1.0 % LAB HEMETOLOGY METHOD 12/04/2024 5:09 AM [facility] NRBC Absolute 0.00 <0.10 K/mcL LAB HEMETOLOGY METHOD 12/04/2024 5:09 AM [facility] Neutrophils Relative 52.1 % LAB HEMETOLOGY METHOD 12/04/2024 5:09 AM [facility] Lymphocytes Relative 28.6 % LAB HEMETOLOGY METHOD 12/04/2024 5:09 AM [facility] Monocytes Relative 10.2 % LAB HEMETOLOGY METHOD 12/04/2024 5:09 AM [facility] Eosinophils Relative 8.3 % LAB HEMETOLOGY METHOD 12/04/2024 5:09 AM EDT [facility] Basophils Relative 0.5 % LAB HEMETOLOGY METHOD 12/04/2024 5:09 AM EDT [facility] Immature Granulocytes Relative 0.3 % LAB HEMETOLOGY METHOD 12/04/2024 5:09 AM EDT [facility] Neutrophils Absolute 1.95 1.50 - 7.00 K/mcL LAB HEMETOLOGY METHOD 12/04/2024 5:09 AM EDT [facility] Lymphocytes Absolute 1.07 1.00 - 5.00 K/mcL LAB HEMETOLOGY METHOD 12/04/2024 5:09 AM EDT [facility] Monocytes Absolute 0.38 0.20 - 1.00 K/mcL LAB HEMETOLOGY METHOD 12/04/2024 5:09 AM EDT [facility] Eosinophils Absolute 0.31 0.00 - 0.50 K/mcL LAB HEMETOLOGY METHOD 12/04/2024 5:09 AM EDT [facility] Basophils Absolute 0.02 0.00 - 0.20 K/mcL LAB HEMETOLOGY METHOD 12/04/2024 5:09 AM EDT [facility] Immature Granulocytes Absolute 0.01 0.00 - 0.03 K/mcL LAB HEMETOLOGY METHOD 12/04/2024 5:09 AM EDT [facility] Blood Venous blood specimen / Unknown Venipuncture / Unknown 12/04/2024 3:14 AM EDT 12/04/2024 4:53 AM EDT us Mariano Nweton MD LAB BLOOD ORDERABLES Final R esult [facility] [address] [place] [address], * B-Type Natriuretic Peptide (BNP) (12/04/2024 3:14 AM EDT) Only the most recent of2 resultswithin the time period is included. BNP 61 <=100 pcg/mL LAB CHEMISTRY METHOD 12/04/2024 5:28 AM [facility] Blood Venous blood specimen / Unknown Venipuncture / Unknown 12/04/2024 3:14 AM EDT 12/04/2024 4:53 AM EDT Mariano Newton MD LAB BLOOD ORDERABLES Final R esult [facility] [address] [place] [address], [place] [phone] * (ABNORMAL) Comprehensive Metabolic Panel (CMP) (12/04/2024 3:14 AM EDT) Pathologist [facility] Sodium 141 133 - 145 mmol/L LAB CHEMISTRY METHOD 12/04/2024 5:30 AM [facility] Potassium 4.1 3.5 - 5.5 mmol/L LAB CHEMISTRY METHOD 12/04/2024 5:30 AM [facility] Comment:Hemolysis present Chloride 103 96 - 110 mmol/L LAB CHEMISTRY METHOD 12/04/2024 5:30 AM [facility] CO2 30 21 - 32 mmol/L LAB CHEMISTRY METHOD 12/04/2024 5:30 AM [facility] Anion Gap 8 3 - 11 LAB CHEMISTRY METHOD 12/04/2024 5:30 AM [facility] Glucose 107(H) 70 - 100 mg/dL LAB CHEMISTRY METHOD 12/04/2024 5:30 AM [facility] BUN 18 5 - 25 mg/dL LAB CHEMISTRY METHOD 12/04/2024 5:30 AM [facility] Creatinine 1.07 0.50 - 1.10 mg/dL LAB CHEMISTRY METHOD 12/04/2024 5:30 AM [facility] eGFR 50(L) >=60 mL/min/1. 73m2 LAB CHEMISTRY METHOD 12/04/2024 5:30 AM [facility] Comment:Calculation based on the Chronic Kidney Disease Epidemiology Collaboration (CKD-EPI) equation refit without adjustment for race. BUN/Creatinine Ratio 16.8 LAB CHEMISTRY METHOD 12/04/2024 5:30 AM [facility] Calcium 9.3 8.5 - 10.5 mg/dL LAB CHEMISTRY METHOD 12/04/2024 5:30 AM [facility] AST (SGOT) 30 10 - 42 unit/L LAB CHEMISTRY METHOD 12/04/2024 5:30 AM [facility] Comment:Hemolysis present ALT (SGPT) 20 10 - 60 unit/L LAB CHEMISTRY METHOD 12/04/2024 5:30 AM [facility] Alkaline Phosphatase 73 42 - 121 unit/L LAB CHEMISTRY METHOD 12/04/2024 5:30 AM [facility] Total Protein 7.2 6.0 - 8.0 g/dL LAB CHEMISTRY METHOD 12/04/2024 5:30 AM [facility] Albumin 3.8 3.2 - 5.0 g/dL LAB CHEMISTRY METHOD 12/04/2024 5:30 AM [facility] Total Bilirubin 0.5 0.0 - 1.4 mg/dL LAB CHEMISTRY METHOD 12/04/2024 5:30 AM [facility] Blood Venous blood specimen / Unknown Venipuncture / Unknown 12/04/2024 3:14 AM EDT 12/04/2024 4:53 AM EDT us Mariano Newton MD LAB BLOOD ORDERABLES Final R esult [facility] [address] [place] [address], [place] [phone] * (ABNORMAL) Complete blood count (11/04/2024 7:02 AM EDT) [facility] WBC 6.8 4.8 - 10.8 K/mcL LAB HEMETOLOGY METHOD 11/04/2024 7:39 AM [facility] RBC 3.60(L) 3.80 - 4.80 M/mcL LAB HEMETOLOGY METHOD 11/04/2024 7:39 AM [facility] Hemoglobin 10.2(L) 11.5 - 16.0 g/dL LAB HEMETOLOGY METHOD 11/04/2024 7:39 AM [facility] Hematocrit 30.8(L) 35.0 - 47.0 % LAB HEMETOLOGY METHOD 11/04/2024 7:39 AM [facility] MCV 86.0 79.0 - 98.0 FL LAB HEMETOLOGY METHOD 11/04/2024 7:39 AM [facility] MCH 28.5 27.0 - 32.0 pcg LAB HEMETOLOGY METHOD 11/04/2024 7:39 AM [facility] MCHC 33.1 32.0 - 37.0 g/dL LAB HEMETOLOGY METHOD 11/04/2024 7:39 AM [facility] RDW 15.2(H) 11.0 - 15.0 % LAB HEMETOLOGY METHOD 11/04/2024 7:39 AM [facility] Platelets 137 130 - 400 K/mcL LAB HEMETOLOGY METHOD 11/04/2024 7:39 AM [facility] MPV 12.5(H) 7.0 - 11.0 FL LAB HEMETOLOGY METHOD 11/04/2024 7:39 AM [facility] NRBC 0.0 <1.0 % LAB HEMETOLOGY METHOD 11/04/2024 7:39 AM [facility] NRBC Absolute 0.00 <0.10 K/mcL LAB HEMETOLOGY METHOD 11/04/2024 7:39 AM T [facility] Blood Venous blood specimen / Unknown Venipuncture / Unknown 11/04/2024 7:02 AM EDT 11/04/2024 7:08 AM EDT us Astrid Moody MD LAB BLOOD ORDERABLES Final Res ult [facility] [address] [place] [address], [place] [phone] * (ABNORMAL) Basic metabolic panel (11/04/2024 7:02 AM EDT) Only the most recent of2 resultswithin the time period is included. Sodium 141 133 - 145 mmol/L LAB CHEMISTRY METHOD 11/04/2024 7:47 AM [facility] Potassium 4.1 3.5 - 5.5 mmol/L LAB CHEMISTRY METHOD 11/04/2024 7:47 AM [facility] Chloride 107 96 - 110 mmol/L LAB CHEMISTRY METHOD 11/04/2024 7:47 AM [facility] LAB CO2 29 21 - 32 mmol/L LAB CHEMISTRY METHOD 11/04/2024 7:47 AM [facility] LAB Anion Gap 5 3 - 11 LAB CHEMISTRY METHOD 11/04/2024 7:47 AM [facility] LAB Glucose 85 70 - 100 mg/dL LAB CHEMISTRY METHOD 11/04/2024 7:47 AM [facility] LAB BUN 23 5 - 25 mg/dL LAB CHEMISTRY METHOD 11/04/2024 7:47 AM [facility] LAB Creatinine 0.94 0.50 - 1.10 mg/dL LAB CHEMISTRY METHOD 11/04/2024 7:47 AM [facility] LAB eGFR 59(L) >=60 mL/min/1. 73m2 LAB CHEMISTRY METHOD 11/04/2024 7:47 AM EDT [facility] Comment:Calculation based on the Chronic Kidney Disease Epidemiology Collaboration (CKD-EPI) equation refit without adjustment for race. BUN/Creatinine Ratio 24.5 LAB CHEMISTRY METHOD 11/04/2024 7:47 AM EDT [facility] Calcium 9.0 8.5 - 10.5 mg/dL LAB CHEMISTRY METHOD 11/04/2024 7:47 AM EDT [facility] Blood Venous blood specimen / Unknown Venipuncture / Unknown 11/04/2024 7:02 AM EDT 11/04/2024 7:08 AM EDT us Astrid Moody MD LAB BLOOD ORDERABLES Final Res ult [facility] [address] [place] [address], [place] [phone] * (ABNORMAL) Urinalysis with reflex microscopic (11/03/2024 8:14 PM EDT) Specific [place] Urine 1.018 1.003 - 1.030 LAB URINALYSIS - AUTOMATED METHOD 11/03/2024 9:08 PM [facility] LAB pH, Urine 5.5 5.0 - 8.0 pH LAB URINALYSIS - AUTOMATED METHOD 11/03/2024 9:08 PM [facility] Leukocytes, Urine Negative Negative LAB URINALYSIS - AUTOMATED METHOD 11/03/2024 9:08 PM [facility] Nitrite, Urine Negative Negative LAB URINALYSIS - AUTOMATED METHOD 11/03/2024 9:08 PM [facility] Protein, Urine Trace <=Trace mg/dL LAB URINALYSIS - AUTOMATED METHOD 11/03/2024 9:08 PM [facility] Glucose, Urine Negative Negative mg/dL LAB URINALYSIS - AUTOMATED METHOD 11/03/2024 9:08 PM EDT [facility] Ketones, Urine Trace(A) Negative mg/dL LAB URINALYSIS - AUTOMATED METHOD 11/03/2024 9:08 PM EDT [facility] Urobilinogen, Urine 0.2 0.2 - 1.0 mg/dL LAB URINALYSIS - AUTOMATED METHOD 11/03/2024 9:08 PM EDT [facility] Bilirubin, Urine Negative Negative LAB URINALYSIS - AUTOMATED METHOD 11/03/2024 9:08 PM EDT [facility] Blood, Urine Negative Negative LAB URINALYSIS - AUTOMATED METHOD 11/03/2024 9:08 PM EDT [facility] Urine Urine specimen obtained by clean catch procedure / Unknown Non-blood Collection / Unknown 11/03/2024 8:14 PM EDT 11/03/2024 9:05 PM EDT us Samir Raza MD LAB URINE ORDERABLES Final Resu lt [facility] [address] [place] [address], * CT Chest wo Contrast (11/03/2024 9:47 AM EDT) Anatomical Region Laterality Modality Body Computed Tomogra phy 11/03/2024 9:54 AM EDT Impressions 11/03/2024 10:05 AM EDT Limited study. Airspace disease which is relatively mild in the posteromedial right lower lobe could represent an area of pneumonia. Previous left upper lobectomy. There are some scattered small nodules most of which appear unchanged. -------- FINAL REPORT -------- Dictated By: Kaiser August Dictated Date: 11/03/2024 09:54 ET Assigned Physician: Kaiser August Reviewed and Electronically Signed By: Kaiser August Signed Date: 11/03/2024 10:05 ET Workstation ID: [id number] Transcribed By: Self Edit Transcribed Date: 11/03/2024 09:54 ET Narrative 11/03/2024 10:05 AM EDT EXAMINATION: CT CHEST WITHOUT CONTRAST CLINICAL INFORMATION: Cough. COPD COMPARISON: Portions of previous 08/27/19 TECHNIQUE: Multidetector CT. Examination of the chest. Examination of the chest without IV contrast. Reformatting in the coronal and sagittal planes. DLP: 595 mGy-cm Dose optimization was performed including the use of low-dose iterative reconstruction technique with automatic exposure control based on patient size. Type of contrast: None Volume of IV contrast: None Volume of contrast discarded: 0 mL FINDINGS: LUNG: There are some secretions within the trachea. Surgical changes consistent with left upper lobectomy. Lung detail is limited by motion in the lower lung zones. There is some airway thickening and some airspace disease in the posteromedial right lower lobe which could represent a small area of pneumonia. This is new or increased when compared to 08/27/19. There are a few scattered nonspecific nodules. There is an unchanged 0.5 cm semisolid nodule anteromedial right upper lobe (5/97) There is a probably unchanged 0.5 cm peripheral nodule lateral segment of the middle lobe. (5/142) There are some nodular densities intermixed with the airspace disease in the posteromedial right lower lobe. Poorly defined 0.4 cm nodule posterior left lower lobe (5/161) MEDIASTINUM: The thyroid is mostly obscured. Probably unchanged lymph node between the proximal aortic arch and confluence of the brachiocephalic vessels. No large hilar mass. No suspicious abnormality the esophagus. CARDIAC: The heart is not enlarged. No pericardial fluid or thickening CORONARY CALCIFICATION: There are marked coronary calcifications. VASCULAR: There is no thoracic aortic aneurysm. The main pulmonary artery is normal caliber PLEURA: There is no pleural fluid or pneumothorax AXILLA/CHEST WALL: There are no enlarged axillary lymph nodes. No chest wall mass demonstrated VISUALIZED UPPER ABDOMEN: No suspicious abnormality on limited assessment of the visualized upper abdomen Limited by absence of fat and absence of contrast. MUSCULOSKELETAL: No suspicious focal bony lesion. There is fluid associated with the right glenohumeral joint. There is a partially calcified structure in the spinal canal in the upper lumbar region which could be a migrated disc fragment but is nonspecific (5/217) Procedure Note Kaiser August MD - 11/03/2024 EXAMINATION: CT CHEST WITHOUT CONTRAST CLINICAL INFORMATION: Cough. COPD COMPARISON: Portions of previous 08/27/19 TECHNIQUE: Multidetector CT. Examination of the chest. Examination of the chest without IV contrast. Reformatting in the coronal and sagittal planes. DLP: 595 mGy-cm Dose optimization was performed including the use of low-dose iterativereconstruction technique with automatic exposure control based on patientsize. Type of contrast: None Volume of IV contrast: None Volume of contrast discarded: 0 mL FINDINGS: LUNG: There are some secretions within the trachea. Surgical changesconsistent with left upper lobectomy. Lung detail is limited by motion in the lower lung zones. There is some airway thickening and some airspace disease in theposteromedial right lower lobe which could represent a small area ofpneumonia. This is new or increased when compared to 08/27/19. There are a few scattered nonspecific nodules. There is an unchanged 0.5 cm semisolid nodule anteromedial right upperlobe (/97) There is a probably unchanged 0.5 cm peripheral nodule lateral segment ofthe middle lobe. (5/142) There are some nodular densities intermixed with the airspace disease inthe posteromedial right lower lobe. Poorly defined 0.4 cm nodule posterior left lower lobe (5/161) MEDIASTINUM: The thyroid is mostly obscured. Probably unchanged lymphnode between the proximal aortic arch and confluence of thebrachiocephalic vessels. No large hilar mass. No suspicious abnormalitythe esophagus. CARDIAC: The heart is not enlarged. No pericardial fluid or thickening CORONARY CALCIFICATION: There are marked coronary calcifications. VASCULAR: There is no thoracic aortic aneurysm. The main pulmonary arteryis normal caliber PLEURA: There is no pleural fluid or pneumothorax AXILLA/CHEST WALL: There are no enlarged axillary lymph nodes. No chestwall mass demonstrated VISUALIZED UPPER ABDOMEN: No suspicious abnormality on limited assessmentof the visualized upper abdomen Limited by absence of fat and absence ofcontrast. MUSCULOSKELETAL: No suspicious focal bony lesion. There is fluidassociated with the right glenohumeral joint. There is a partiallycalcified structure in the spinal canal in the upper lumbar region whichcould be a migrated disc fragment but is nonspecific (5/217) IMPRESSION: Limited study. Airspace disease which is relatively mild in the posteromedial right lowerlobe could represent an area of pneumonia. Previous left upper lobectomy. There are some scattered small nodules most of which appear unchanged. -------- FINAL REPORT -------- Dictated By: Kaiser August Dictated Date: 11/03/2024 09:54 ET Assigned Physician: Kaiser August Reviewed and Electronically Signed By: Kaiser August Signed Date: 11/03/2024 10:05 ET Workstation ID: [id number] Transcribed By: Self Edit Transcribed Date: 11/03/2024 09:54 ET us Saadia Thakkar MD IMG CT PROCEDURES Final Result * Troponin I High Sensitivity (11/03/2024 8:13 AM EDT) High Sensitivity Troponin I 14 <=54 ng/L LAB CHEMISTRY METHOD 11/03/2024 8:58 AM EDT [facility] Blood Venous blood specimen / Unknown Venipuncture / Unknown 11/03/2024 8:13 AM EDT 11/03/2024 8:29 AM EDT Narrative [facility] - 11/03/2024 8:58 AM EDT High levels of biotin in samples may falsely decrease hsTroponin values. Use caution when interpreting hsTroponin results in patients taking biotin who exhibit renal impairment (eGFR <60) or in patients taking more than 20 mg/day of biotin. us Saadia Thakkar MD LAB BLOOD ORDERABLES Final Res ult [facility] [address] [place] [address], * XR Chest 2 Views (11/03/2024 6:50 AM EDT) Anatomical Region Laterality Modality Body Radiographic Lay ging 11/03/2024 7:00 AM EDT Impressions 11/03/2024 7:02 AM EDT No pneumonia or edema. Previous left chest surgery. -------- FINAL REPORT -------- Dictated By: Kaiser August Dictated Date: 11/03/2024 07:00 ET Assigned Physician: Kaiser August Reviewed and Electronically Signed By: Kaiser August Signed Date: 11/03/2024 07:02 ET Workstation ID: [id number] Transcribed By: Self Edit Transcribed Date: 11/03/2024 07:00 ET Narrative 11/03/2024 7:02 AM EDT EXAMINATION: CHEST CLINICAL INFORMATION: Shortness of breath COMPARISON: Frontal view 09/25/24 TECHNIQUE: 2 views of the chest FINDINGS: The head and neck obscures some of the upper chest. There is kyphosis. Surgical clips project over the left hilum. The cardiac size is mildly prominent. No hilar mass. No vascular congestion or edema. No dense area of consolidation. No definite pneumothorax. Chronic deformity posterior left fourth rib. Chronic changes around the right shoulder including rotator cuff disease. Procedure Note Kaiser August MD - 11/03/2024 EXAMINATION: CHEST CLINICAL INFORMATION: Shortness of breath COMPARISON: Frontal view 09/25/24 TECHNIQUE: 2 views of the chest FINDINGS: The head and neck obscures some of the upper chest. There is kyphosis. Surgical clips project over the left hilum. The cardiac size is mildlyprominent. No hilar mass. No vascular congestion or edema. No dense area of consolidation. No definite pneumothorax. Chronic deformity posterior left fourth rib.Chronic changes around the right shoulder including rotator cuffdisease. IMPRESSION: No pneumonia or edema. Previous left chest surgery. -------- FINAL REPORT -------- Dictated By: Kaiser August Dictated Date: 11/03/2024 07:00 ET Assigned Physician: Kaiser August Reviewed and Electronically Signed By: Kaiser August Signed Date: 11/03/2024 07:02 ET Workstation ID: [id number] Transcribed By: Self Edit Transcribed Date: 11/03/2024 07:00 ET us Samir Raza MD IMG XR PROCEDURES Final Result * Lactate, with reflex (11/03/2024 5:58 AM EDT) LACTIC ACID 1.2 0.4 - 2.0 mmol/L LAB CHEMISTRY METHOD 11/03/2024 6:51 AM EDT [facility] Blood Venous blood specimen / Unknown Venipuncture / Unknown 11/03/2024 5:58 AM EDT 11/03/2024 6:14 AM EDT Samir Raza MD LAB BLOOD ORDERABLES Final Resu lt [facility] [address] [place] [address], [place] [phone] * Culture blood (11/03/2024 5:58 AM EDT) Only the most recent of2 resultswithin the time period is included. Culture, Blood No growth at 5 days 11/08/2024 7:01 AM EDT [facility] Blood Venous blood specimen / Unknown Venipuncture / Unknown 11/03/2024 5:58 AM EDT 11/03/2024 6:15 AM EDT Samir Raza MD LAB MICROBIOLOGY - GENERAL ORDE RABLES Final Result Performing Organization Address City/[facility]/ZIP Co de Phone Number [facility] [address] [place] [address], [place] [phone] * MEKHI DEXA AXIAL SKELETON (11/24/2017 8:34 AM EDT) Anatomical Region Laterality Modality Mammography 11/24/2017 7:59 AM EDT Narrative 11/24/2017 8:34 AM EDT [facility] Diagnostic Imaging Department [address] [place] [address] Patient: MELY PRIETO /Age/Sex: 1935 - 82 - F Unit#: [id number] Location/Status: SPDIMAM/REG CLI Mnemonic/[facility] Ordering Physician: MARIE PRADO MD Mekhi Dexa Axial Skeleton - 11/24/17830 HISTORY: The patient is an 82-year-old postmenopausal female with clinical concern for metabolic bone disease. FINDINGS: Dual energy x-ray absorptiometry of the lumbar spine and femurs is performed. The mean bone mineral density at L1-2 is 1.087 gm/cm2 which is 93% of that of young normals and 107% of that of age matched controls. This yields a T- score of -0.7 and a Z-score of 0.6 and there is therefore no evidence of osteoporosis or osteopenia here. The mean bone mineral density of the femurs bilaterally is 0.885 gm/cm2 which is 88% of that of young normals and 102% of that of age matched controls. This yields a T-score of -1.0 and a Z-score of 0.1 and there is therefore no evidence of osteoporosis or osteopenia here. However, the T-score of the left femoral neck is -1.7 which is diagnostic of osteopenia. IMPRESSION: 1. Osteopenia. There has been a decrease of 2.2% in bone mineral density in the lumbar spine since the prior examination of 10/19/2015. There has been a decrease of 4.9% in bone mineral density in the right femur and a decrease of 7.7% in bone mineral density in the left femur. 2. FRAX analysis yields a 10-year probability of major osteoporotic fracture of 7.5% and a 10-year probability of hip fracture of 1.4%. Code 90882 Dictating Physician: CLYDE HERNANDES MD Electronically Signed by: CLYDE HERNANDES MD Dic Date/Time: 11/24/17831 Sign date/Time: 11/24/17833 Procedure Note Clyde Hernandes MD - 02/22/2022 [facility] Diagnostic Imaging Department [address] [place] [address] Patient: MELY PRIETO Mukul Marrufo./Age/Sex: 1935 - 82 - F Unit#: [id number] Location/Status: [facility] Mnemonic/Ordering [facility] Ordering Physician: MARIE PRADO MD Mekhi Dexa Axial Skeleton - 11/24/17830 HISTORY: The patient is an 82-year-old postmenopausal female withclinical concern for metabolic bone disease. FINDINGS: Dual energy x-ray absorptiometry of the lumbar spine and femursis performed. The mean bone mineral density at L1-2 is 1.087 gm/cm2 which is93% of that of young normals and 107% of that of age matched controls. Thisyields a T- score of -0.7 and a Z-score of 0.6 and there is therefore no evidence of osteoporosis or osteopenia here. The mean bone mineral density of the femurs bilaterally is 0.885 gm/co6szncc is 88% of that of young normals and 102% of that of age matched controls.This yields a T-score of -1.0 and a Z-score of 0.1 and there is therefore noevidence of osteoporosis or osteopenia here. However, the T-score of the leftfemoral neck is -1.7 which is diagnostic of osteopenia. IMPRESSION: 1. Osteopenia. There has been a decrease of 2.2% in bone mineral densityin the lumbar spine since the prior examination of 10/19/2015. There has elsie decrease of 4.9% in bone mineral density in the right femur and a decreaseof 7.7% in bone mineral density in the left femur. 2. FRAX analysis yields a 10-year probability of major osteoporoticfracture of 7.5% and a 10-year probability of hip fracture of 1.4%. 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 Do not modify or discontinue any currently active code status orders. * No CPR/Intubation OK Date Activated Date Inactivated Comments 08/03/2024 7:50 AM 08/04/2024 3:10 PM This code sta tus was ascertained in the following way: Code status discussion: discussion with patient To update the patient's code status, place a code status order. Do not modify or discontinue any currently active code status orders. * Full Code - Default Date Activated Date Inactivated Comments 08/03/2024 6:49 AM 08/03/2024 7:50 AM This is orde r is used when code status has not been discussed with the patient, or code status is otherwise unknown/unconfirmed To update the patient's code status, place a code status order. Do not modify or discontinue any currently active code status orders. Care Teams Plant Nursery Worker Relationship Specialty Start Date End Date Physician, Pcp Unknown PCP - General 11/05/24
--- OUTSIDE RECORDS SUMMARY | 2025-01-01 12:05 | XMS_ITS | Encounter Summary ---
Author Organization [facility] Address [address] [facility] [address] [place] [address] Phone Care Team Providers Care Ice Resurfacing Machine Operators Name Role Phone Zhao Mendoza MD Primary Care Provider + Zhao Mccabe MD Unavailable [phone] Eugene Márquez MD Unavailable [phone] Solo Hanley MD Unavailable [phone] Encounter Details Date Type Department Care Team (Late st Contact Info) Description 03/21/2017 Procedure Pass [facility] [address] [place] [address] Social History Tobacco Use Types Packs/Day Years [...] st Contact Info) Description 02/06/2024 Procedure Pass [facility] Imaging - CT, Main [place] [address] [place] [address] 02/06/2024 Procedure Pass [facility] Imaging - [facility], [facility] [address] [place] [address] 02/05/2025 1:30 PM EST Appointment [facility] Imaging - [place], [facility] [address] [place] [address] Solo Hanley MD [address] [place] [phone] [email or web address] 02/05/2025 2:00 PM EST Appointment [facility] Imaging - CT, [facility] [address] [place] [address] Solo Hanley MD [address] [place] [phone] [email or web address] 02/17/2025 11:00 AM EST Telemedicine Department of Urology [address] [address] O'Marifer, Naina Russell, CHAIN OFFBEARER [address] [address] [email or web address] documented as of this encounter Visit Diagnoses Not on filedocumented in this encounter Care Teams Ice Resurfacing Machine Operators Relationship Specialty Start Date End Date Zhao Mendoza MD [address] [place] [address] [address] [place] [address] PCP - General 09/03/13 Zhao Mccabe MD [address] [facility] [address] [place] [address] Cardiology 08/19/14 Eugene Márquez MD [address] [place] [address] Division [place] [address] [email or web address] Surgery 11/06/14 Solo Hanley MD [address] [place] [phone] [email or web address] Urology 03/22/18 documented as of this encounter Additional Source Comments The information contained in this document represents components of the legal health record. It is not the complete legal health record.[facility]
--- OUTSIDE RECORDS SUMMARY | 2025-01-01 12:05 | XMS_ITS | Encounter Summary ---
Author Organization [facility] Address [address] [facility] [address] [place] [address] Phone Care Team Providers Care Sheet Rock Finisher Name Role Phone Zhao Mendoza MD Primary Care Provider + Zhao Mccabe MD Unavailable [phone] Eugene Márquez MD Unavailable [phone] Solo Hanley MD Unavailable [phone] Encounter Details Date Type Department Care Team (Late st Contact Info) Description 04/18/2016 Procedure Pass [facility] Radiology [address] [place] [address] Social History Tobacco Use Types Packs/Day Years [...] st Contact Info) Description 02/06/2024 Procedure Pass [facility] Imaging - CT, Main [place] [address] [place] [address] 02/06/2024 Procedure Pass [facility] Imaging - CT, [facility] [address] [place] [address] 02/05/2025 1:30 PM EST Appointment [facility] Imaging - CT, [facility] [address] [place] [address] Solo Hanley MD [address] [place] [phone] [email or web address] 02/05/2025 2:00 PM EST Appointment [facility] Imaging - CT, [facility] [address] [place] [address] Solo Hanley MD [address] [place] [phone] [email or web address] 02/17/2025 11:00 AM EST Telemedicine Department of Urology [address] [address] O'Marifer, Naina Russell, REGISTERED NURSES [address] [address] [email or web address] as of this encounter Visit Diagnoses Not on filedocumented in this encounter Care Teams Sheet Rock Finisher Relationship Specialty Start Date End Date Zhao Mendoza MD [address] [place] [address] [address] [place] [address] PCP - General 09/03/13 Zhao Mccabe MD 300 [facility] [address] [place] [address] Cardiology 08/19/14 Eugene Márquez MD [address] [place] [address] Division [place] [address] [email or web address] Surgery 11/06/14 Solo Hanley MD [address] [place] [phone] [email or web address] Urology 03/22/18 documented as of this encounter Additional Source Comments The information contained in this document represents components of the legal health record. It is not the complete legal health record.[facility]
--- OUTSIDE RECORDS SUMMARY | 2025-01-01 12:06 | XMS_ITS | Encounter Summary ---
Author Organization [facility] Address [address] [facility] [address] [place] [address] Phone Care Team Providers Care Fire Boss Name Role Phone Zhao Mendoza MD Primary Care Provider + Zhao Mccabe MD Unavailable [phone] Eugene Márquez MD Unavailable [phone] Solo Hanely MD Unavailable Encounter Details Date Type Department Care Team (Late st Contact Info) Description 12/20/2021 Procedure Pass [facility] Radiology [address] [place] [address] Social History Tobacco Use Types Packs/Day Years [...] st Contact Info) Description 02/06/2024 Procedure Pass [facility] [place], [facility] [place] [address] [place] [address] 02/06/2024 Procedure Pass [facility] - [place], [facility] [address] [place] [address] 02/05/2025 1:30 PM EST Appointment [facility] - [place], [facility] [address] [place] [address] Solo Hanley MD [address] [place] [address] [email or web address] 02/05/2025 2:00 PM EST Appointment [facility] - [place], [facility] [place] [address] [place] [address] Solo Hanley MD [address] [place] [address] [email or web address] 02/17/2025 11:00 AM EST Telemedicine Department of Urology [address] [address] Naina Yip, JANE [address] [address] [email or web address] documented as of this encounter Visit Diagnoses Not on filedocumented in this encounter Additional Health Concerns Assessment Noted Time PHQ-2 Depression Total Score: 0 01/19/20 22 11:22 AM EST documented as of this encounter Care Teams Fire Boss Relationship Specialty Start Date End Date Zhao Mendoza MD [address] [place] [address] [address] [place] [address] PCP - General 09/03/13 Zhao Mccabe MD 300 [facility] [address] [place] [address] Cardiology 08/19/14 Eugene Márquez MD [address] [place] [address] Division [place] [address] [email or web address] General Surgery 9/3/15 Solo Hanley MD [address] [place] [address] [place] [address] [email or web address] Urology 03/22/18 documented as of this encounter Additional Source Comments The information contained in this document represents components of the legal health record. It is not the complete legal health record.[facility]
--- OUTSIDE RECORDS SUMMARY | 2025-01-01 12:06 | XMS_ITS | Clinical Summary ---
Author Organization [facility] Address [address] [address] Phone Care Team Providers Care Phlebotomy Supervisor Name Role Phone Zhao Mendoza MD Primary Care Provider + Zhao Mccabe MD Unavailable [phone] Eugene Márquez MD Unavailable [phone] Solo Hanley MD Unavailable [phone] Allergies Active Allergy Reactions Criticality Noted Date Comments Amoxil (Amoxicillin) Rash Medium 08/19/2014 Bactrim (Sulfamethoxazole-Trimethoprim ) 08/19/2014 Cartia Xt (Diltiazem Hcl) Unknown 08/19/2014 Ketoprofen Rash Low 08/19/2014 Percodan (Oxycodone Hof-Avjdmmero-Yev) Other (See Comments) 08/20/2002 GI upset Vasotec (Enalapril Maleate) 08/20/19 15 Yellow Dye 08/19/2014 Medications ranitidine (ZANTAC) 150 MG tablet Take 150 mg by mouth 2 (two) times a day. Active montelukast (SINGULAIR) 10 mg tablet Take 10 mg by mouth nightly. Reported on 03/15/2016 Active acetaminophen (TYLENOL) 325 mg tablet Take 650 mg by mouth as needed. Reported on 03/15/2016 Active Ca cit-D3-mag#11-z wjd-fvzd-mag-thomas r (CALTRATE 600+D) 600 mg calcium- 800 unit-50 mg Tab Take 1 tablet by mouth daily. Active salmeterol (SEREVENT DISKUS) 50 mcg/dose diskus inhaler Inhale 1 puff into the lungs 2 (two) times a day. Active fluticasone (FLOVENT HFA) 110 mcg/actuation inhaler Inhale 1 puff into the lungs 2 (two) times a day. Active nitroglycerin (NITROSTAT) 0.[address] 0.4 mg under the tongue daily. Active triamterene-hyd rochlorothiazid e (DYAZIDE) 37.5-25 mg per capsule Take 1 capsule by mouth every morning. Active amLODIPine (NORVASC) 10 MG tablet Take 10 mg by mouth daily. Active atorvastatin (LIPITOR) 40 MG tablet Take 10 mg by mouth daily. Active atorvastatin (LIPITOR) 40 MG tablet Take 40 mg by mouth daily. Active raNITIdine (ZANTAC) 150 MG tablet Take 150 mg by mouth 2 (two) times a day. Active aspirin 81 mg chewable tablet Take 81 mg by mouth daily. Active losartan-hydroC HLOROthiazide (HYZAAR) 50-12.5 mg per tablet Take 1 tablet by mouth daily. Active ibuprofen (ADVIL ORAL) Take by mouth. Active Active Problems Patient Care Coordination No te Formatting of this note migh t be different from the original. Due to the COVID-19 pandemic and the need for a virtual visit, we had the outside scan sent to the [facility] and informally reread by the [facility] chest radiologist, Dr. Boom Carvajal on 09/05/2019: Impression for CCT on 08/27/2019 Impoving basilar peribronchial opacities with increasing subpleural ground glass and consolidations in the right mid lung zone, likely pneumonitis/organizing pneumonia. Stable RUL nodules. Stable lymph nodes. 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 Overview (04/26/2014): H/O Adenocarcinoma of lung Immunizations Immunization Administration Dates Next Due Influenza, Unspecified Formulation 05/04(Deferred: Other - documented in admission packet) Pneumococcal polysaccharide PPSV23 08/30(Deferred: Other),05/05/2011(Deferred: Other - per patient) Family History Medical History Relation Comments Stroke Father Heart disease Mother Heart disease Sister 1 Diabetes Sister 3 Kidney disease Sister 4 Hypertension Sister 5 Relation Status Comments Father Maternal Grandfather Maternal Grandmother Mother Paternal Grandfather Paternal Grandmother Sister 1 Sister 2 Alive Sister 3 Sister 4 Sister 5 Social History Tobacco Use Types Packs/Day Years Used Date Smoking Tobacco: Former Cigarettes 0.3 22 1 03/07/1993 - 01/06/2016 Smokeless Tobacco: Never Tobacco Cessation:Counseling Given: Not Answered Alcohol Use Standard Drinks/Week Comments No 0 (1 standard drink = 0.6 oz pur e alcohol) Education Answer Date Recorded Are you interested in more education? Not on vivian e 06/30/2022 Are you concerned about learning? Not on file 06/30/2022 No 06/30/2022 No 06/30/2022 Digital Access Answer Date Recorded No 07/26/2022 No 07/26/2022 No 07/26/2022 Reliable internet access at home? Not on file 07/26/2022 Device with a working camera? Not on file Comments Unknown Sex and Gender Information Value Date Recorded Sex Assigned at Not on file Legal Sex Female 7:31 PM EST Gender Identity Not on file Sexual Orientation Not on file Last Filed Vital Signs Vital Sign Reading Time Taken Comments Blood Pressure 141/65 01/18/2022 11:22 AM EST Pulse 59 01/18/2022 11:22 AM EST Temperature 36.5 C (97.7 F) 01/18/2022 11:22 AM EST Respiratory Rate 16 01/18/2022 11:22 AM EST Oxygen Saturation 100% 01/18/2022 11:22 AM EST Inhaled Oxygen Concentration - - Weight 60.8 kg (134 lb) 06/30/2022 10:18 AM EDT Height 167.6 cm (5' 6 ) 06/30/2022 10:18 AM EDT Body Mass Index 21.63 06/30/2022 10:18 AM EDT Plan of Treatment Upcoming Encounters Date Type Department Care Team (Late st Contact Info) Description 02/06/2024 Procedure Pass [facility] Imaging - [place], [facility] [address] [place] [address] 02/06/2024 Procedure Pass [facility] - [place], [facility] [address] [place] [address] 02/05/2025 1:30 PM EST Appointment [facility] - [place], [facility] [address] [place] [address] Solo Hanley MD [address] [place] [address] 02/05/2025 2:00 PM EST Appointment [facility] - [place], [facility] [address] [place] [address] Solo Hanley MD [address] [place] [address] 02/17/2025 11:00 AM EST Telemedicine Department of Urology [address] [facility] 7th [place] [address] O'Naina Caicedo, GREASE RACK WORKER [address] [address] [email or web address] Health Maintenance Due Date Last Done Comments Adult Td,Tdap Booster 1935 PNEUMOCOCCAL VACCINES (50+ years) (1 of 2 - PCV) 1956 ZOSTER VACCINES (1 of 2) 1956 OSTEOPOROSIS SCREENING INITIAL (ONE-TIME) 2002 RSV VACCINE (1 - 1-dose 75+ series) 2012 POTASSIUM LEVEL 04/18/2018 04/18/2017, 05/2011, 05/06/2011, Additional history exists CREATININE LEVEL 11/29/2018 11/29/2017, , 05/07/2011, Additional history exists DEPRESSION SCREENING 01/18/2023 01/18/2022 INFLUENZA VACCINE (#1) 2024 COVID-19 VACCINE ( season) 2024 09/23/2021, 12/29/2020, 06/17/2020, Additional history exists HEPATITIS A VACCINES Aged Out No long er eligible based on patient's age to complete this topic HIB VACCINES Aged Out No longer eligi ble based on patient's age to complete this topic MENINGOCOCCAL VACCINES (ACWY) Aged Out No longer eligible based on patient's age to complete this topic MENINGOCOCCAL VACCINES (B) Aged Out N o longer eligible based on patient's age to complete this topic Medical Devices Not on file Procedures Procedure Name Priority Date/Time Associated Diagnosis Comments POCT CREATININE/EGFR Routine 11/29/2017 1:26 PM EDT COMPREHENSIVE METABOLIC PANEL Routine 04/18/2017 1:19 PM EST Renal mass from Last 3 Months or Most Recently Relevant to Health Maintenance Results * POCT Creatinine/eGFR (11/29/2017 1:26 PM EDT) Creatinine 0.90 0.60 - 1.50 mg/dl [facility] EGFR 60 >59 mL/min/1.7 3m2 [facility] Comment:If patient is black, multiply result by 1.159. Estimated glomerular filtration rate calculated using the CKD-EPI equation. 11/29/2017 1:26 PM EDT 11/29/2017 1:27 PM EDT Solo Hanley MD POINT OF CARE TEST ORDERABLES Final Result [facility] [address] [place] [address] * (ABNORMAL) Comprehensive metabolic panel (04/18/2017 1:19 PM EST) SODIUM 143 135 - 145 mmol/L [facility] POTASSIUM 3.7 3.4 - 5.0 mmol/L [facility] CHLORIDE 98 98 - 108 mmol/L [facility] CO2 26 23 - 32 mmol/L [facility] BUN 20 8 - 25 mg/dL [facility] CREATININE 1.01 0.60 - 1.50 mg/dL [facility] GLUCOSE 92 70 - 110 mg/dL [facility] ALBUMIN 4.1 3.3 - 5.0 g/dL [facility] TOTAL PROTEIN 7.9 6.0 - 8.3 g/dL [facility] CALCIUM 10.4 8.5 - 10.5 mg/dL [facility] ALKALINE PHOSPHATASE 81 30 - 100 U/L [facility] TOTAL BILIRUBIN 0.5 0.0 - 1.0 mg/dL [facility] AST 29 9 - 32 U/L [facility] ALT 21 7 - 33 U/L [facility] GLOBULIN 3.8 1.9 - 4.1 g/dL [facility] EGFR 53(A) >60 mL/min/1. 73m2 [facility] Comment:The normal range for eGFR is >60 mL/min/1.73m2. If this patient is -[place], this patient's race-adjusted eGFR is >60 mL/min/1.73m2 and the abnormal flag should be disregarded. ANION GAP 19(H) 3 - 17 mmol/L [facility] 04/18/2017 1:19 PM EST 04/18/2017 5:15 PM EST us Solo Hanley MD LAB BLOOD ORDERABLES Final Res ult [address] [address] from Last 3 Months or Most Recently Relevant to Health Maintenance Insurance MEDICARE PART A & B Member Subscriber Plan / Payer (Ef fective 2002-Present) Name:Cee Person Member ID:[id number] Relation to Subscriber:Self Name:Cee Person Subscriber ID:[id number] Payer ID:[id number] Group ID:Not on file Type:Medicare Address: [facility] [employer] [facility]. [address] [place] [address] [facility] MEDICARE [facility]PPLEMENT MEDICARE PART A & B [facility] MEDICARE SUPPLEMENT MEDICARE PART A & B [facility] MEDICARE SUPPLEMENT MEDICARE PART A & B [facility] MEDICARE SUPPLEMENT MEDICARE PART A & B MEDICARE SUPPLEMENT MEDICARE PART A & B Member Subscriber Plan / Payer (Ef fective 2002-Present) Name:Raza Cee Member ID:[id number] Relation to Subscriber:Self Name:Raza Cee Subscriber ID:[id number] Payer ID:[id number] Group ID:Not on file Type:Medicare Address: [employer] [address] MEDICARE SUPPLEMENT MEDICARE PART A & B [facility] MEDICARE SUPPLEMENT MEDICARE PART A & B [facility] MEDICARE SUPPLEMENT MEDICARE PART A & B [facility] MEDICARE SUPPLEMENT Care Teams Phlebotomy Supervisor Relationship Specialty Start Date End Date Zhao Mendoza MD [address] [place] [address] PCP - General 09/03/13 Zhao Mccabe MD [address] [place] [address] Cardiology 08/19/14 Eugene Márquez MD [address] [place] [address] Division [place] [address] [email or web address] 11/06/14 Solo Hanley MD [address] [place], [place] [address] [place] [address] [email or web address] Urology 03/22/18 Additional Source Comments The information contained in this document represents components of the legal health record. It is not the complete legal health record.[facility]
--- OUTSIDE RECORDS SUMMARY | 2025-01-01 12:06 | XMS_ITS | Encounter Summary ---
Author Organization [facility] Address [address] [facility] [address] [place] [address] Phone Care Team Providers Care Search Engine Optimizer Name Role Phone Zhao Mendoza MD Primary Care Provider + Zhao Mccabe MD Unavailable [phone] Eugene Márquez MD Unavailable [phone] Solo Hanley MD Unavailable [phone] Encounter Details Date Type Department Care Team (Late st Contact Info) Description 01/04/2022 Procedure Pass [address] [address] Social History Tobacco Use Types Packs/Day Years [...] st Contact Info) Description 02/06/2024 Procedure Pass [facility] - [place], [facility] [address] [place] [address] 02/06/2024 Procedure Pass [facility] [place], [facility] [address] [place] [address] 02/05/2025 1:30 PM EST Appointment [facility] - [place], [facility] [address] [place] [address] Solo Hanley MD [address] [place] [address] [email or web address] 02/05/2025 2:00 PM EST Appointment [facility] Imaging - CT, [facility] [address] [place] [address] Solo Hanley MD [address] [place] [address] [email or web address] 02/17/2025 11:00 AM EST Telemedicine Department of Urology [address] [address] O'Marifer, Naina Russell, DIRECTOR [employer] [address] [address] [email or web address] documented as of this encounter Visit Diagnoses Not on filedocumented in this encounter Additional Health Concerns Assessment Noted Time PHQ-2 Depression Total Score: 0 01/19/20 22 11:22 AM EST documented as of this encounter Care Teams Search Engine Optimizer Relationship Specialty Start Date End Date Zhao Mendoza MD [address] [place] [address] 322 [place] [address] PCP - General 09/03/13 Zhao Mccabe MD 300 [facility] 154 [place] [address] Cardiology 08/19/14 Eugene Márquez MD [address] [place] [address] Division [place] [address] [email or web address] General Surgery 11/06/14 Solo Hanley MD [address] [place] [address] [place] [address] [email or web address] Urology 03/22/18 documented as of this encounter Additional Source Comments The information contained in this document represents components of the legal health record. It is not the complete legal health record.[facility]
--- OUTSIDE RECORDS SUMMARY | 2025-01-01 12:06 | XMS_ITS | Encounter Summary ---
Author Organization [facility] Address [address] [facility] [address] [place] [address] Phone Care Team Providers Care Life Scientists Name Role Phone Zhao Mendoza MD Primary Care Provider + Zhao Mccabe MD Unavailable [phone] Eugene Márquez MD Unavailable Solo Hanley MD Unavailable [phone] Encounter Details Date Type Department Care Team (Late st Contact Info) Description 09/04/2019 Procedure Pass [facility], [place] [address] [place] [address], 2nd [place] [address] Social History Tobacco Use Types Packs/Day Years [...] st Contact Info) Description 02/06/2024 Procedure Pass [facility] Imaging - [place], [facility] [address] [place] [address] 02/06/2024 Procedure Pass [facility] [place], [facility] [address] [place] [address] 02/05/2025 1:30 PM EST Appointment [facility] Imaging - [place], [facility] [address] [place] [address] Solo Hanley MD [address] [place] [address] [email or web address] 02/05/2025 2:00 PM EST Appointment [facility] Imaging - [place], [facility] [address] [place] [address] Solo Hanley MD [address] [place] [address] [email or web address] 02/17/2025 11:00 AM EST Telemedicine Department of Urology [address] [address] O'Naina Caicedo, EYEWEAR MANUFACTURING TECH [address] [address] [email or web address] documented as of this encounter Visit Diagnoses Not on filedocumented in this encounter Additional Health Concerns Assessment Noted Time PHQ-2 Depression Total Score: 0 09/17/19 20 7:09 AM EDT documented as of this encounter Care Teams Life Scientists Relationship Specialty Start Date End Date Zhao Mendoza MD [address] [place] [address] 322 [place] [address] PCP - General 09/03/13 Zhao Mccabe MD 300 [facility] [address] [place] [address] Cardiology 08/19/14 Eugene Márquez MD [address] [place] [address] Division [place] [address] [email or web address] General Surgery 11/06/14 Solo Hanley MD [address] [place] [address] [place] [address] [email or web address] Urology 03/22/18 documented as of this encounter Additional Source Comments The information contained in this document represents components of the legal health record. It is not the complete legal health record.[facility]
== END 2025-01-01 10:58 | disposition home or self-care (01) ==
PROVIDERS: Visit Provider Psychiatry & Neurology Neurology
DX: R26.81 Unsteadiness on feet (principal); R41.3 Other amnesia
CPT/HCPCS: 99204

== ENCOUNTER 2025-01-01 09:59 | Outpatient (REF) | payer MEDICARE, SELFPAY ==
[2025-01-01 12:56] LABS: Vitamin B12 759 pg/mL (200-900)
== END 2025-01-01 10:00 | disposition home or self-care (01) ==
LOC: HO.LAB 09:59
PROVIDERS: Nurse Practitioner; PCP Internal Medicine; Visit Provider Psychiatry & Neurology Neurology
DX: R26.81 Unsteadiness on feet (principal); R41.3 Other amnesia
CPT/HCPCS: 36415; 82607; 83921; 84443; 99202

== ENCOUNTER 2025-02-28 15:44 | Outpatient (REF) | payer MEDICARE, SELFPAY ==
--- OUTSIDE RECORDS SUMMARY | 2023-10-10 06:00 | XMS_ITS ---
Author Organization [facility] [place] Address [address] [facility] [facility] [address] [place] [address] Care Team Providers Care Storage Management Architect Name Role Phone Migration, Provider Unavailable Unavailable REASON FOR VISIT Sick Visit Encounters Encounter Location Date Provider Diagnosis [facility], [address] [place] [address] 10/10/2023 Provider Migration Plan Of Treatment No Information Progress Notes * SAHIL PRIETOOB: [birth year] (89 yo F)Acc No.[id number]:10/10/2023 Progress Notes Patient: DURGA LEDBETTERSIE Provider: Dell Knowles :1935 A ge:88 Y S ex:Female Date:10/10/2023 Address:[address] [place], [place] [phone] Subjective: * Chief Complaints: * S ick Visit * Ocular Surgical History: Objective: Vision Examination: * Electronic signature of Prov ider Migration on 02/28/2025 at 03:46 PM EST Sign off status: Pending * Provider: Dell Knowles Date: 0 10/10/2023 Generated for Fran javed/Yousif/eTransmitting on: 1 05/01/2024 03:46 PM EST
--- OUTSIDE RECORDS SUMMARY | 2023-11-30 05:00 | XMS_ITS ---
Author Organization [facility] [place] Address [address] [facility] [address] [place] [address] Care Team Providers Care Executive Chef Assistant Name Role Phone Migration, Provider Unavailable Unavailable REASON FOR VISIT CPX Encounters Encounter Location Date Provider Diagnosis [facility], [address] [place] [address] 11/30/2023 Provider Migration Plan Of Treatment No Information Progress Notes * SAHIL PRIETOOB: [birth year] (89 yo F)Acc No.[id number]:11/30/2023 Progress Notes Patient: DURGA LEDBETTERSIE Provider: Dell Knowles :1935 A ge:88 Y S ex:Female Date:11/30/2023 Address:[address] [place], [place] [phone] Subjective: * Chief Complaints: * C PX * Ocular Surgical History: Objective: Vision Examination: * Electronic signature of Prov ider Migration on 02/28/2025 at 03:46 PM EST Sign off status: Pending * Provider: Dell fraser Migration Date: 0 11/30/2023 Generated for Fran javed/Yousif/eTransmitting on: 1 05/01/2024 03:46 PM EST
--- OUTSIDE RECORDS SUMMARY | 2024-02-29 10:45 | XMS_ITS ---
Author Organization [facility] [place] Address [address] [facility] [address] [place] [address] Care Team Providers Care Policy Adviser Name Role Phone Migration, Provider Unavailable Unavailable REASON FOR VISIT Follow-up Appt Encounters Encounter Location Date Provider Diagnosis [address] [place] [address] 02/29/2024 Provider Migration Plan Of Treatment No Information Progress Notes * SAHIL PRIETOOB: [birth year] (89 yo F)Acc No.[id number]:02/29/2024 Progress Notes Patient: MELY LEDBETTER Provider: Dell Knowles :1935 A ge:88 Y S ex:Female Date:02/29/2024 Address:[address] [place], [place] [phone] Subjective: * Chief Complaints: * F ollow-up Appt * Ocular Surgical History: Objective: Vision Examination: * Electronic signature of Prov ider Migration on 02/28/2025 at 03:46 PM EST Sign off status: Pending * Provider: Dell fraser Migration Date: 05/01/2023 Generated for Fran javed/Yousif/eTransmitting on: 05/01/2024 03:46 PM EST
--- OUTSIDE RECORDS SUMMARY | 2024-03-04 09:00 | XMS_ITS ---
Author Organization [facility] [place] Address [address] [facility] [address] [place] [address] Care Team Providers Care Transition Of Care Specialist Name Role Phone Migration, Provider Unavailable Unavailable REASON FOR VISIT Follow-up Appt Encounters Encounter Location Date Provider Diagnosis [address] [place] [address] 03/04/2024 Provider Migration Plan Of Treatment No Information Progress Notes * SAHIL PRIETOOB: [birth year] (89 yo F)Acc No.[id number]:03/04/2024 Progress Notes Patient: MELY LEDBETTER Provider: Dell fraser Migration :1935 A ge:88 Y S ex:Female Date:03/04/2024 Address:[address] [place], [place] [phone] Subjective: * Chief Complaints: * F ollow-up Appt * Ocular Surgical History: Objective: Vision Examination: * Electronic signature of Prov ider Migration on 02/28/2025 at 03:46 PM EST Sign off status: Pending * Provider: Dell fraser Migration Date: Generated for Fran javed/Yousif/eTransmitting on: 05/01/2024 03:46 PM EST
--- OUTSIDE RECORDS SUMMARY | 2024-07-01 05:00 | XMS_ITS ---
Author Organization [facility] [place] Address [address] [facility] [address] [place] [address] Care Team Providers Care Acid Leveler Name Role Phone Kenneth Parks Unavailable [phone] REASON FOR VISIT Follow-up Appt Encounters Encounter Location Date Provider Diagnosis [facility], [address] [place] [address] 07/01/2024 Kenneth Parks Plan Of Treatment No Information Progress Notes * CONNER, BESSISHAZIAOB: [birth year] (89 yo F)Acc No.[id number]:07/01/2024 Progress Notes Patient: MELY LEDBETTER Provider: Oli PAULINO :1935 A ge:89 Y S ex:Female Date:07/01/2024 Address:[address] [place], [place] [phone] Subjective: * Chief Complaints: * F ollow-up Appt * Ocular Surgical History: Objective: Vision Examination: * Electronic signature of Florencio Parks PA-C on 02/28/2025 at 03:46 PM EST Sign off status: Pending * Provider: Oli PAULINO Date: 0 07/01/2024 Generated for Fran javed/Yousif/Uziel on: 1 05/01/2024 03:46 PM EST
--- OUTSIDE RECORDS SUMMARY | 2025-02-25 14:13 | XMS_ITS | Encounter Summary ---
Author Organization [facility] Address [address] [place] [address] Phone Care Team Providers Care Coastal Tug Mate Name Role Phone Zhao Mendoza MD Primary Care Provider + Zhao Mccabe MD Unavailable [phone] Eugene Márquez MD Unavailable [phone] Solo Hanley MD Unavailable [phone] Reason for Referral * MRI/CAT Scan - Closed Specialty Diagnoses / Procedures Referred By Yaritza alamo Referred To Contact Radiology Diagnoses Renal mass Procedures CT Abdomen/Pelvis Solo Hanley MD Phone: tel: fax: [email or web address] Referral ID Status Reason Start Date Expiration Date Visits Re quested Visits Authorized [id number] Closed 01/23/2025 03/05/2025 1 1 * MRI/CAT Scan - Closed Specialty Diagnoses / Procedures Referred By Yaritza t Referred To Contact Radiology Diagnoses Renal mass Procedures CT Chest Solo Hanley MD Phone: tel: fax: [email or web address] Referral ID Status Reason Start Date Expiration Date Visits Re quested Visits Authorized [id number] Closed 01/23/2025 03/05/2025 1 1 Reason for Visit * MRI/CAT Scan - Closed Specialty Diagnoses / Procedures Referred By Yaritza alamo Referred To Contact Radiology Diagnoses Renal mass Procedures CT Abdomen/Pelvis Solo Hanley MD Phone: tel: fax: mailto:[email or web address] Referral ID Status Reason Start Date Expiration Date Visits Re quested Visits Authorized [id number] Closed 01/23/2025 03/05/2025 1 1 Encounter Details Date Type Department Care Team (Latest Contact Info) Description 02/25/2025 2:13 PM EST - 02/25/2025 11:59 PM EST Hospital Encounter [facility] Imaging - CT, [address] [place] [address] Solo Hanley MD [address] [place] [phone] [email or web address] Arrived Discharge Disposition: Home or Self Care Social History Tobacco Use Types Packs/Day Years [...] on file documented as of this encounter Medications at Time of Discharge acetaminophen (TYLENOL) 325 mg tablet Take 650 mg by mouth as needed. Reported on 03/15/2016 amLODIPine (NORVASC) 10 MG tablet Take 10 mg by mouth daily. aspirin 81 mg chewable tablet Take 81 mg by mouth daily. atorvastatin (LIPITOR) 40 MG tablet Take 10 mg by mouth daily. atorvastatin (LIPITOR) 40 MG tablet Take 40 mg by mouth daily. Ca cit-D3-mag#11-zin f-owde-yyn-bor (CALTRATE 600+D) 600 mg calcium- 800 unit-50 mg Tab Take 1 tablet by mouth daily. fluticasone (FLOVENT HFA) 110 mcg/actuation inhaler Inhale 1 puff into the lungs 2 (two) times a day. ibuprofen (ADVIL ORAL) Take by mouth. losartan-hydroCHL OROthiazide (HYZAAR) 50-12.5 mg per tablet Take 1 tablet by mouth daily. montelukast (SINGULAIR) 10 mg tablet Take 10 mg by mouth nightly. Reported on 03/15/2016 nitroglycerin (NITROSTAT) 0.[address] 0.4 mg under the tongue daily. ranitidine (ZANTAC) 150 MG tablet Take 150 mg by mouth 2 (two) times a day. raNITIdine (ZANTAC) 150 MG tablet Take 150 mg by mouth 2 (two) times a day. salmeterol (SEREVENT DISKUS) 50 mcg/dose diskus inhaler Inhale 1 puff into the lungs 2 (two) times a day. triamterene-hydro chlorothiazide (DYAZIDE) 37.5-25 mg per capsule Take 1 capsule by mouth every morning. documented as of this encounter Consult Notes * Shelby Ramirez RN - 02/25/2025 2:50 PM EST Images from the original note were not included. Vascular Access Team Consult Note: Thank you for consulting the vascular access team to evaluate this patient for appropriate venous access Reason for Consult Outpatient Peripheral Access Request Recommendations None Intervention Successful peripheral IV start Thank you for consulting the [facility] Vascular Access Team Visit our Vascular Access Team Vitals page for Vascular Access resources [email or web address] documented in this encounter Plan of Treatment Upcoming Encounters Date Type Department Care Team (Late st Contact Info) Description 03/13/2025 11:30 AM EST Telemedicine [facility] [address] [place] [address] O'Marifer, Naina Russell, PROJECT SCIENTIST [address] [address] [email or web address] documented as of this encounter Procedures Procedure Name Priority Date/Time Associated Diagnosis Comments CT CHEST WITH CONTRAST Routine 02/25/2025 2:57 PM EST Renal mass CT ABDOMEN/PELVIS (RENAL MASS) WITH AND WITHOUT CONTRAST Routine 02/25/2025 2:57 PM EST Renal mass documented in this encounter Results * CT ABDOMEN/PELVIS (RENAL MASS) WITH AND WITHOUT CONTRAST (02/25/2025 2:57 PM EST) [facility]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 No abdominopelvic metastases. 2. 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 These findings were discussed with Dr. Hanley at 2:56 am on 02/26/25, and he understood their significance. A clinically significant result was initiated on 02/26/2025 3:26 PM, Message ID [id number]. ATTESTATION: I, Dr. Adarsh Graves as teaching physician, have reviewed the images for this case and if necessary edited the report originally created by Tyson Yepez. Narrative 02/26/2025 3:[address] ABDOMEN/PELVIS (RENAL MASS) WITH AND WITHOUT CONTRAST Referring clinician's provided indication for this examination in [facility]: *Urologic cancer, surveillance; renal mass on surveillance TECHNIQUE: Multidetector-row CT of the abdomen and pelvis was performed before and after administration of intravenous contrast using tailored dose modulation techniques. Images were reconstructed in the axial, coronal, and sagittal planes. COMPARISON: MRI ABDOMEN (KIDNEYS) WITH AND WITHOUT CONTRAST FINDINGS: Lower Chest: Separately dictated. Liver: No focal lesions. Biliary: No biliary ductal dilatation. Noninflamed gallbladder. Spleen: No splenomegaly. Pancreas: No masses or ductal dilatation. Adrenal Glands: No nodules. Kidneys/Ureters: 2.1 x 1.8 x 2.3 cm left lower pole mass (5:54), unchanged from prior MR dated 07/04/2022. No stones. Scattered cysts. No hydronephrosis. Bowel: No distention or wall thickening. Normal appendix. Peritoneum/Retroperitoneum: No free air or fluid. Lymph Nodes: No lymphadenopathy. Pelvic Organs/Bladder: Unremarkable. Vessels: Nonocclusive filling defect extending from the left external iliac vein through the visualized femoral vein (5:138). No abdominal aortic aneurysm. Atherosclerosis. Bones/Soft Tissues: No destructive osseous lesions. Skeletal degenerative changes. Chronic changes seen at the bilateral hamstring insertions with small volume fluid seen in the proximal left hamstring tendon sheath, unchanged. Procedure Note Adarsh Graves MD - 02/26/2025 CT ABDOMEN/PELVIS (RENAL MASS) WITH AND WITHOUT CONTRAST Referring clinician's provided indication for this examination in [facility]:*Urologic cancer, surveillance; renal mass on surveillance TECHNIQUE: Multidetector-row CT of the abdomen and pelvis was performedbefore and after administration of intravenous contrast using tailoreddose modulation techniques. Images were reconstructed in the axial,coronal, and sagittal planes. COMPARISON: MRI ABDOMEN (KIDNEYS) WITH AND WITHOUT CONTRAST FINDINGS: Lower Chest: Separately dictated. Liver: No focal lesions. Biliary: No biliary ductal dilatation. Noninflamed gallbladder. Spleen: No splenomegaly. Pancreas: No masses or ductal dilatation. Adrenal Glands: No nodules. Kidneys/Ureters: 2.1 x 1.8 x 2.3 cm left lower pole mass (5:54), unchangedfrom prior MR dated 07/04/2022. No stones. Scattered cysts. Nohydronephrosis. Bowel: No distention or wall thickening. Normal appendix. Peritoneum/Retroperitoneum: No free air or fluid. Lymph Nodes: No lymphadenopathy. Pelvic Organs/Bladder: Unremarkable. Vessels: Nonocclusive filling defect extending from the left externaliliac vein through the visualized femoral vein (5:138). No abdominalaortic aneurysm. Atherosclerosis. Bones/Soft Tissues: No destructive osseous lesions. Skeletal degenerativechanges. Chronic changes seen at the bilateral hamstring insertions withsmall volume fluid seen in the proximal left hamstring tendon sheath,unchanged. IMPRESSION: 1. Unchanged 2.3 cm left renal lower pole mass, pathology reported as alow-grade eosinophilic renal epithelial neoplasm. No abdominopelvicmetastases. 2. Nonocclusive deep vein thrombus extending from the left external iliacvein through the visualized femoral vein. These findings were discussed with Dr. Hanley at 2:56 am on 02/26/25, andhe understood their significance. A clinically significant result was initiated on 02/26/2025 3:26 PM,Message ID [id number]. ATTESTATION: I, Dr. Adarsh Graves as teaching physician, have reviewed theimages for this case and if necessary edited the report originally createdby Tyson Yepez. us Solo Hanley MD IM CT ABD/PELVIS Final Result * CT CHEST WITH CONTRAST (02/25/2025 2:57 PM EST) Anatomical Region Laterality Modality Chest Computed Tomogra phy 02/28/2025 10:2 9 AM EST Impressions 02/28/2025 2:36 PM EST 1. No evidence of intrathoracic metastatic disease. 2. New centrilobular/tree-in-bud and patchy opacities in the right lower lobe and to a lesser extent in the right upper lobe, likely aspiration. 3. Postsurgical changes of left upper lobectomy without evidence of new or recurrent disease. 4. Unchanged other nodules measuring up to 6 mm since January 2022, likely benign. RECOMMENDATIONS: Follow-up CT chest in 3-4 months or as per clinical protocol. ATTESTATION: I, Dr. Constanza Nixon as teaching physician, have reviewed the images for this case and if necessary edited the report originally created by Chi Esposito. 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 Prior lung cancer status post left upper lobectomy and lymph node dissection. TECHNIQUE: Multidetector CT of the chest was performed with intravenous contrast using tailored dose modulation techniques. COMPARISON: CT CHEST WITHOUT CONTRAST FINDINGS: Devices/Tubes/Lines: None. Lungs: Secretions in the trachea and right mainstem bronchus. Postsurgical changes of left upper lobectomy and hilar lymph node node dissection. There are new centrilobular/tree-in-bud nodules and patchy opacities in the right lower lobe with extensive mucous plugging, and to a lesser extent in the right upper lobe (4:106). Unchanged 6 mm right middle lobe nodule and 4 mm left lung base nodule since at least January 2022, likely benign. Unchanged groundglass opacities in the anterior RIGHT upper lobe and 6 mm part solid nodule in the RIGHT upper lobe (4:96, 106). Pleura: No pleural effusion or pneumothorax. Mediastinum: Unchanged multinodular thyroid gland the largest nodule measures 10 mm on the right. Normal heart size. Normal caliber ascending aorta. Dilated main pulmonary artery measuring 3.2 which can be seen with pulmonary hypertension. Mitral annular calcification. Aortic valve leaflet calcifications. Atherosclerotic calcification of the aortic arch and descending aorta.Moderate amount of coronary calcifications. Lymph Nodes: No enlarged supraclavicular, axillary, mediastinal, or hilar lymph nodes. Upper Abdomen: Please see concurrent abdominal CT for abdominal findings. Chest Wall: No chest wall mass. Bones: No suspicious lytic or blastic lesions. Unchanged chronic left rib fractures/postthoracotomy changes. Procedure Note Constanza Nixon MBBS - 02/28/2025 CT CHEST WITH CONTRAST Referring clinician's provided indication for this examination in [facility]: *Kidney cancer, follow up; renal mass on surveillance Review of the Electronic Medical Record reveals an additional history of:eosinophilic renal epithelial neoplasm. Prior lung cancer status post leftupper lobectomy and lymph node dissection. TECHNIQUE: Multidetector CT of the chest was performed with intravenouscontrast using tailored dose modulation techniques. COMPARISON: CT CHEST WITHOUT CONTRAST FINDINGS: Devices/Tubes/Lines: None. Lungs: Secretions in the trachea and right mainstem bronchus. Postsurgicalchanges of left upper lobectomy and hilar lymph node node dissection.There are new centrilobular/tree-in-bud nodules and patchy opacities inthe right lower lobe with extensive mucous plugging, and to a lesserextent in the right upper lobe (4:106). Unchanged 6 mm right middle lobenodule and 4 mm left lung base nodule since at least January 2022, likelybenign. Unchanged groundglass opacities in the anterior RIGHT upper lobeand 6 mm part solid nodule in the RIGHT upper lobe (4:96, 106). Pleura: No pleural effusion or pneumothorax. Mediastinum: Unchanged multinodular thyroid gland the largest nodulemeasures 10 mm on the right. Normal heart size. Normal caliber ascendingaorta. Dilated main pulmonary artery measuring 3.2 which can be seen withpulmonary hypertension. Mitral annular calcification. Aortic valve leafletcalcifications. Atherosclerotic calcification of the aortic arch anddescending aorta.Moderate amount of coronary calcifications. Lymph Nodes: No enlarged supraclavicular, axillary, mediastinal, or hilarlymph nodes. Upper Abdomen: Please see concurrent abdominal CT for abdominalfindings. Chest Wall: No chest wall mass. Bones: No suspicious lytic or blastic lesions. Unchanged chronic left ribfractures/postthoracotomy changes. IMPRESSION: 1. No evidence of intrathoracic metastatic disease. 2. New centrilobular/tree-in-bud and patchy opacities in the right lowerlobe and to a lesser extent in the right upper lobe, likely aspiration. 3. Postsurgical changes of left upper lobectomy without evidence of newor recurrent disease. 4. Unchanged other nodules measuring up to 6 mm since January 2022,likely benign. RECOMMENDATIONS: Follow-up CT chest in 3-4 months or as per clinical protocol. ATTESTATION: I, Dr. Constanza Nixon as teaching physician, have reviewed theimages for this case and if necessary edited the report originally createdby Chi Esposito. Solo Hanley MD IMG CT CHEST Final Result documented in this encounter Visit Diagnoses Diagnosis Renal mass Unspecified disorder of kidney and ureter documented in this encounter Administered Medications Inactive Administered Medications - up to 3 most recent administrations Medication Order MAR Action Action Date Dose Rate Site iohexoL (OMNIPAQUE-350) 350 mg iodine/mL solution 100 mL 100 mL, Intravenous, Once as needed, pre procedure/treatment, Starting on 02/25/25 at 1416, For 1 dose, Procedural Contrast/Med Active Now, Each mL contains 755 mg of iohexol equivalent to 350 mg of organic iodine. Given 02/25/2025 2:59 PM EST 100 mL documented in this encounter Additional Health Concerns Assessment Noted Time PHQ-2 Depression Total Score: 0 01/19/20 22 11:22 AM EST documented as of this encounter Care Teams Coastal Tug Mate Relationship Specialty Start Date End Date Zhao Mendoza MD [address] [address] [place] [address] PCP - General 09/03/13 Zhao Mccabe MD [address] [place] [address] Cardiology 08/19/14 Eugene Márquez MD [address] [place] [address] Division [place] [address] [email or web address] Surgery 11/06/14 Solo Hanley MD [address] [place] [address] [place] [address] Urology 03/22/18 documented as of this encounter Additional Source Comments The information contained in this document represents components of the legal health record. It is not the complete legal health record.[facility]
--- OUTSIDE RECORDS SUMMARY | 2025-02-28 15:46 | XMS_ITS | Encounter Summary ---
Author Organization [facility] Address [address] [facility] [address] [place] [address] Phone Care Team Providers Care Grip Boss Name Role Phone Zhao Mendoza MD Primary Care Provider + Zhao Mccabe MD Unavailable [phone] Eugene Márquez MD Unavailable [phone] Solo Hanley MD Unavailable [phone] Encounter Details Date Type Department Care Team (Late st Contact Info) Description 02/27/2025 Orders Only VIRTUAL DEPARTMENT [address] [place] [phone] Solo Hanley MD [address] [place] [address] [place], [place] [address] [place] [address] [email or web address] Social History Tobacco Use Types Packs/Day Years [...] on file documented as of this encounter Progress Notes * Solo Hanley MD - 02/27/2025 4:43 PM EST I was informed by radiology that the recent abdominal pelvic CT scan demonstrated an incidental DVT. I have called and spoken with the patient???s son who was currently with her for the holiday. The patient is currently completely asymptomatic. I have informed them of the finding and recommended zelalem t they call their primary care physician to initiate anticoagulation. I informed them that the primary care physician should make sure there are no other contraindications to anticoagulation and saidlikely Eliquis would be the easiest choice for her, especially given the holiday. I also informed them that if she should develop any shortness of breath or chest pain she should go to the emergency room immediately to be seen and evaluated. documented in this encounter Plan of Treatment Upcoming Encounters Date Type Department Care Team (Late st Contact Info) Description 03/13/2025 11:30 AM EST Telemedicine [facility] [address] [facility] 7th [place] [address] O'Naina Caicedo, C.O.D. CLERK [address] [address] [email or web address] documented as of this encounter Visit Diagnoses Not on filedocumented in this encounter Additional Health Concerns Assessment Noted Time PHQ-2 Depression Total Score: 0 01/19/20 22 11:22 AM EST documented as of this encounter Care Teams Grip Boss Relationship Specialty Start Date End Date Zhao Mendoza MD 299 [facility] 322 [place] [address] PCP - General 09/03/13 Zhao Mccabe MD [address] [place] [address] 154 [place] [address] Cardiology 08/19/14 Eugene Márquez MD [address] [place] [address] Division [place] [address] [email or web address] Surgery 11/06/14 Solo Hanley MD [address] [place] [address] [address] [place] [address] [email or web address] Urology 03/22/18 documented as of this encounter Additional Source Comments The information contained in this document represents components of the legal health record. It is not the complete legal health record.[facility]
--- OUTSIDE RECORDS SUMMARY | 2025-02-28 15:46 | XMS_ITS | Encounter Summary ---
Author Organization [facility] Address [address] [place] [address] Phone Care Team Providers Care Longwall Machine Operator Helper Name Role Phone Zhao Mendoza MD Primary Care Provider + Zhao Mccabe MD Unavailable [phone] Eugene Márquez MD Unavailable [phone] Solo Hanley MD Unavailable [phone] Encounter Details Date Type Department Care Team (Late st Contact Info) Description 04/18/2017 Procedure Pass [facility] [address] [place] [address] Social History Tobacco Use Types Packs/Day Years [...] Department Care Team (Late Contact Info) Description 03/13/2025 11:30 AM EST Telemedicine [facility] Clinic [address] 7th [place] [address] O'Naina Caicedo, JANE [address] [address] [email or web address] documented as of this encounter Visit Diagnoses Not on filedocumented in this encounter Care Teams Longwall Machine Operator Helper Relationship Specialty Start Date End Date Zhao Mendoza MD [address] [place] [address] PCP - General 09/03/13 Zhao Mccabe MD 300 [facility] 154 [place] [address] Cardiology 08/19/14 Eugene Márquez MD [address] [place] [address] Division [place] [address] [email or web address] 11/06/14 Solo Hanley MD [address] [place] [address] [address] [place] [address] [email or web address] Urology 03/22/18 documented as of this encounter Additional Source Comments The information contained in this document represents components of the legal health record. It is not the complete legal health record.[facility]
--- OUTSIDE RECORDS SUMMARY | 2025-02-28 15:46 | XMS_ITS | Encounter Summary ---
Author Organization [facility] Address [address] [facility] [address] [place] [address] Phone Care Team Providers Care Procedural Nurse Name Role Phone Zhoa Mendoza MD Primary Care Provider + Zhao Mccabe MD Unavailable [phone] Eugene Márquez MD Unavailable [phone] Solo Hanley MD Unavailable [phone] Encounter Details Date Type Department Care Team (Late st Contact Info) Description 06/06/2017 Procedure Pass [facility] MRI. [facility] [address] [address] Social History Tobacco Use Types Packs/Day Years [...] Info) Description 03/13/2025 11:30 AM EST Telemedicine [facility] Clinic [address] [facility] 7th [place] [address] O'Naina Caicedo, BACK JOINER [address] [address] [place] [address] [email or web address] documented as of this encounter Visit Diagnoses Not on filedocumented in this encounter Care Teams Procedural Nurse Relationship Specialty Start Date End Date Zhao Mendoza MD [address] [place] [address] PCP - General 09/03/13 Zhao Mccabe MD [address] [place] [address] Cardiology 08/19/14 Eugene Márquez MD [address] [place] [address] Division [place] [address] [email or web address] General [email or web address] 11/06/14 Solo Hanley MD 55 [facility] [address] [place] [address] [email or web address] Urology 03/22/18 documented as of this encounter Additional Source Comments The information contained in this document represents components of the legal health record. It is not the complete legal health record.[facility]
--- OUTSIDE RECORDS SUMMARY | 2025-02-28 15:46 | XMS_ITS | Encounter Summary ---
Author Organization [facility] Address [address] [facility] [address] [place] [address] Phone Care Team Providers Care Card Punching Machine Operator Name Role Phone Zhao Mendoza MD Primary Care Provider + Zhao Mccabe MD Unavailable [phone] Eugene Márquez MD Unavailable [phone] Solo Hanley MD Unavailable [phone] Encounter Details Date Type Department Care Team (Late st Contact Info) Description 02/06/2024 Procedure Pass [facility] Imaging - [place], Main [place] [address] [place] [address] Social History Tobacco Use Types Packs/Day Years [...] Info) Description 03/13/2025 11:30 AM EST Telemedicine [facility] 165 [facility] 7th [place] [address] O'Marifer, Naina Russell, MEDICAL ADMINISTRATIVE TECHNICIAN 1999 [facility] 443 [place] [address] [email or web address] documented as of this encounter Visit Diagnoses Not on filedocumented in this encounter Additional Health Concerns Assessment Noted Time PHQ-2 Depression Total Score: 0 01/19/20 22 11:22 AM EST documented as of this encounter Care Teams Card Punching Machine Operator Relationship Specialty Start Date End Date Zhao Mendoza MD 299 [facility] 322 [place] [address] PCP - General 09/03/13 Zhao Mccabe MD 300 [facility] [address] [place] [address] Cardiology 08/19/14 Eugene Márquez MD [address] [place] [address] Division [place] [address] [email or web address] General Surgery 11/06/14 Solo Hanley MD 55 [facility] [address] [place] [address] [email or web address] Urology 03/22/18 documented as of this encounter Additional Source Comments The information contained in this document represents components of the legal health record. It is not the complete legal health record.[facility]
--- OUTSIDE RECORDS SUMMARY | 2025-02-28 15:46 | XMS_ITS | Patient Health Record ---
Author Organization [facility] Address [address] [facility] [address] [place] [address] Care Team Providers Care Software Installer Name Role Phone JelaniKenneth lima Unavailable [phone] Migration, Provider Unavailable Unavailable Shilpa Joya Unavailable [phone] Consuelo Can Unavailable [phone] Allergies Allergen (clinical drug ingredient) Drug/Non Drug Allergy documented on EMR Reaction Allergy Type Onset Date Status Yellow Dye #6 ([place] Yellow) anaphylaxis Drug Allergy Active Reason For Referral Reason pt presents with son who requests she see Dr. 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 Referring Provider First Name Consuelo Referring Provider Last Name Pamella Referred Provider Specialty Neurology Referral Priority Routine Reason Patient's son believ es she is aspirating Diagnosis 1 Pneumonitis due to i nhalation of food and vomit (J69.0) Referral Organization [facility] Referring Provider First Name Consuelo Referring Provider Last Name Pamella Referred Provider Specialty Speech and l anguage therapist Referral Priority Routine Reason worsening COPD Diagnosis 1 COPD, 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) Referral Organization [facility] Referring Provider First Name Consuelo Referring Provider Last Name Pamella Referred Provider Specialty Pulmonary Di seases Referral Priority Routine Reason Patient Need attenti on to her thickened nails and has seen this practice previously. Dr. Kana Giron Diagnosis 1 Onychogryphosis (L60 .2) Referral Organization [facility] Referring Provider First Name Consuelo Referring Provider Last Name Pamella Referred Provider Specialty Podiatry Referral Priority Routine Reason Patient with thicken ed nails on both feet. Patient is known to your practice Diagnosis 1 Onychogryphosis (L60 .2) Referral Organization [facility] Referring Provider First Name Consuelo Referring Provider Last Name Can Referred Provider Specialty Podiatry Referral Priority Routine Reason Patient with c/o lef t eye dryness and itchiness with the skin surrounding the eye now discolored Diagnosis 1 Dry eye of left side (H04.122) Referral Organization [facility] Referring Provider First Name Consuelo Referring Provider Last Name Can Referred Provider Specialty Ophthalmolog y Referral Priority Routine Medications Medication SIG (Take, Route, Frequency, Duration) Notes Start Date End Date Status Azelastine-Fluticasone 137-50 MCG/ACT Suspension 1 spray in each nostril Nasally Twice a day Not-Taking Cefuroxime Sodium 7 days left Not-Taking amLODIPine Besylate 10 MG Tablet 1 tablet Orally Once a day Not-Taking Aspirin 81 MG Tablet Chewable 1 tablet Orally Once a day Not-Taking Losartan Potassium 50 MG Tablet 1 tablet Orally Once a day Active Trelegy Ellipta 200-62.5-25 MCG/ACT Aerosol Powder Breath Activated 1 puff Inhalation Once a day; Duration: 90 days Not-Taking Ventolin HFA 108 (90 Base) MCG/ACT Aerosol Solution 1 puff as needed Inhalation every 4 hrs; Duration: 90 days As needed Active Caltrate 600+D Plus Minerals Active prednisoLONE Not-Jc ing Losartan Potassium-HCTZ 50-12.5 MG Tablet 1 tablet Orally Once a day; Duration: 90 days 11/20/2024 Active Atorvastatin Calcium 40 MG Tablet Take 1 tablet by mouth once daily Orally Once a day; Duration: 30 days Active Azithromycin 250 MG Tablet as directed Orally 3 days left Not-Takin g Eliquis 2.5 MG Tablet 1 tablet Orally twice a day; Duration: 90 days 02/28/2025 Active Albuterol Sulfate (2.5 MG/3ML) 0.083% Nebulization Solution 3 mL as needed Inhalation every 6 hrs; Duration: 90 days J44.9 diagnosis code 12/25/2024 Active Social History Section Notes: drink: no smoke: no Problems Problem Type SNOMED Code ICD Code Onset Dates Problem Status W/U Status Risk Notes Problem Hyperlipidemia (27733454) Hyperlipidemia, unspecified (E78.5) Active confirmed Problem Essential hypertension (61121583) Essential (primary) hypertension (I10) Active confirmed Problem Uncomplicated asthma (disorder) (689897813) Unspecified asthma, uncomplicated (J45.909) Active confirmed Problem Chronic obstructive pulmonary disease (22724701) COPD, 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) Active confirmed Problem Acute exacerbation of chronic obstructive airways disease (929634182) COPD exacerbation (J44.1) Active confirmed Problem Chronic obstructive pulmonary disease (54320487) COPD, moderate (J44.9) Active confirmed Vital Signs Heart Rate 78 /min 02/20/[phone] Temperature 98.6 degrees Fahrenheit 11/08/2024 Respiratory Rate 16 /min 02/20/2025 [phone] Height-cm 167.64 cm 02/20/2025 [phone] Oximetry 99 % 02/20/[phone] Blood pressure diastolic 76 mm Hg 02/20/2025 [facility] -[id number] Weight-kg 56.25 kg 02/20/2025 [phone] Height 66 in 02/20/2025 [phone] Blood pressure systolic 130 mm Hg 02/20/2025 [facility]- [id number] Weight 124 lbs 02/20/[phone] BMI 20.01 kg/m2 02/20/2025 [phone] Encounters Encounter Location Date Provider Diagnosis [facility], [address] [address] 02/29/2024 Provider Migration [address] [address] 03/04/2024 Provider Migration [address] [address] 07/01/2024 Kenneth Parks [facility], [address] [address] 02/28/2025 Shilpa Joya 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 [facility], [address] [address] 10/30/2024 Consuelo Can Unspecified asthma, uncomplicated J45.909 [facility], [address] [address] 11/08/2024 Consuelo Can COPD, severe J44.9 ; Hyperlipidemia, unspecified E78.5 ; Essential (primary) hypertension I10 and Hospital discharge follow-up Z09 [facility] [place] [address] [place] [phone] 12/25/2024 Consuelo Can COPD, severe J44.9 [facility] [place] [address] [facility] [facility] [facility] [address] [place] [phone] 02/20/2025 Consuelo Can Onychogryphosis L60. 2 ; Dry eye of left side H04.122 and Chronic obstructive pulmonary disease, unspecified COPD type J44.9 [facility], [place] [address] [place] [phone] 11/20/2024 Shilpa Joya [facility] [place] [address] [facility] [address] [place] [phone] 11/06/2024 Consuelo Can [facility], [place] [address] [facility] [address] [place] [phone] 12/09/2024 Consuelo Can [facility], [address] [address] 12/09/2024 Shilpa Joya [facility], [address] [address] 01/11/2025 Consuelo Can Assessments Encounter Date Diagnosis (ICD Code) Assessment Notes Treatment Notes Treatment Clinical Notes Section Notes 10/30/2024 Unspecified asthma, uncomplicated (ICD-10 - J45.909) patient telemedicine for refill of rx 11/08/2024 Hyperlipidemia, unspecified (ICD-10 - E78.5) patient into e office today for a hospital er [...] recent hospitalization to obtain a nebulizer machine. 02/20/2025 Onychogryphosis (ICD-10 - L60.2) Patient into th e office today to f/u on referrals 02/20/2025 Dry eye of left side (ICD-10 - H04.122) Patient treated for dry eye but the condition has worsened and she states her left eye is itchy and the surrounding tissue is discolored Patient into the office today to f/u on referrals 02/28/2025 Acute embolism and thrombosis of unspecified vein (ICD-10 - I82.90) 02/20/2025 Chronic obstructive pulmonary disease, unspecified COPD type (ICD-10 - J44.9) recommended using the nebulizer every day to help clear up her respiratory wheezing Patient into the office today to f/u on referrals 11/08/2024 Essential (primary) hypertension (ICD-10 - I10) [...] and referral to pulmonary Plan Of Treatment No Information Insurance Providers Payer Name Payer Address Payer Phone Subscriber Number Group Number Insured Name Patient Relationship to Insured Coverage Start Date Coverage End Date A [employer], [employer] [address] [facility] [place] [phone] [id number] MELY RICHARDSON Self - patient is the insured [facility] Health Care Options [address] [place] [address] [id number] MELY RICHARDSON Self - patient is the insured Medical (General) History Hospitalization History Reason Date(Month/Year) breathing trouble 2024
--- OUTSIDE RECORDS SUMMARY | 2025-02-28 15:46 | XMS_ITS | Encounter Summary ---
Author Organization [facility] Address [address] [place] [address] Phone Care Team Providers Care Hotel Service Supervisor Name Role Phone Zhao Mendoza MD Primary Care Provider + Zhao Mccabe MD Unavailable [phone] Eugene Márquez MD Unavailable [phone] Solo Hanley MD Unavailable [phone] Encounter Details Date Type Department Care Team (Late st Contact Info) Description 02/06/2024 Procedure Pass [facility] Imaging - CT, Main [place] [address] [place] [address] Social History Tobacco Use Types Packs/Day Years [...] Info) Description 03/13/2025 11:30 AM EST Telemedicine [facility] Urology Clinic [address] [facility] 7th [place] [address] O'Marifer, Naina Russell, CENTER CUSTOMER SERVICE ASSOCIATE 1999 [facility] 443 [place] [address] [email or web address] documented as of this encounter Visit Diagnoses Not on filedocumented in this encounter Additional Health Concerns Assessment Noted Time PHQ-2 Depression Total Score: 0 01/19/20 22 11:22 AM EST documented as of this encounter Care Teams Hotel Service Supervisor Relationship Specialty Start Date End Date Zhao Mendoza MD 299 [facility] 322 [place] [address] PCP - General 09/03/13 Zhao Mccabe MD 300 [facility] [address] [place] [address] Cardiology 08/19/14 Eugene Márquez MD [address] [place] [address] Division [place] [address] [email or web address] 11/06/14 Solo Hanley MD 55 [facility] [address] [place] [address] [email or web address] Urology 03/22/18 documented as of this encounter Additional Source Comments The information contained in this document represents components of the legal health record. It is not the complete legal health record.[facility]
--- OUTSIDE RECORDS SUMMARY | 2025-02-28 15:47 | XMS_ITS | Encounter Summary ---
Author Organization [facility] Address [address] [place] [address] Phone Care Team Providers Care Screw Machine Hand Name Role Phone Zhao Mendoza MD Primary Care Provider + Zhao Mccabe MD Unavailable [phone] Eugene Márquez MD Unavailable [phone] Solo Hanley MD Unavailable [phone] Encounter Details Date Type Department Care Team (Late st Contact Info) Description 09/04/2019 Procedure Pass [facility] MRI, [place] [address] 55 [facility], 2nd [place] [address] Social History Tobacco Use Types Packs/Day Years [...] Info) Description 03/13/2025 11:30 AM EST Telemedicine [facility] Urology Clinic 165 [facility] 7th [place] [address] O'Naina Caicedo, JANE [address] [address] [place] [address] [email or web address] documented as of this encounter Visit Diagnoses Not on filedocumented in this encounter Additional Health Concerns Assessment Noted Time PHQ-2 Depression Total Score: 0 09/17/19 20 7:09 AM EDT documented as of this encounter Care Teams Screw Machine Hand Relationship Specialty Start Date End Date Zhao Mendoza MD 299 [facility] 322 [place] [address] PCP - General 09/03/13 Zhao Mccabe MD 300 [facility] 154 [place] [address] Cardiology 08/19/14 Eugene Márquez MD [address] [place] [address] Division [place] [address] [email or web address] 11/06/14 Solo Hanley MD [address] [place], [place] [address]Z[address] [place] [address] [email or web address] Urology 03/22/18 documented as of this encounter Additional Source Comments The information contained in this document represents components of the legal health record. It is not the complete legal health record.[facility]
--- OUTSIDE RECORDS SUMMARY | 2025-02-28 15:47 | XMS_ITS | Encounter Summary ---
Author Organization [facility] Address [address] [facility] [address] [place] [address] Phone Care Team Providers Care Educational Resource Center Teacher Name Role Phone Zhao Mendoza MD Primary Care Provider + Zhao Mccabe MD Unavailable [phone] Eugene Márquez MD Unavailable [phone] Solo Hanley MD Unavailable [phone] Encounter Details Date Type Department Care Team (Late st Contact Info) Description 04/18/2016 Procedure Pass [facility] [address] [place] [address] Social History Tobacco Use Types Packs/Day Years [...] Info) Description 03/13/2025 11:30 AM EST Telemedicine [facility] Urology Clinic [address] [facility] 7th [place] [address] O'Marifer, Naina Russell, JANE [address] [address] [email or web address] documented as of this encounter Visit Diagnoses Not on filedocumented in this encounter Care Teams Educational Resource Center Teacher Relationship Specialty Start Date End Date Zhao Mendoza MD [address] [facility] [address] [place] [address] PCP - General 09/03/13 Zhao Mccabe MD 300 [facility] 154 [place] [address] Cardiology 08/19/14 Eugene Márquez MD [address] [place] [address] Division [place] [address] [email or web address] General [email or web address] 11/06/14 Solo Hanley MD [address] [place] [address] [address] [place] [address] [email or web address] Urology 03/22/18 documented as of this encounter Additional Source Comments The information contained in this document represents components of the legal health record. It is not the complete legal health record.[facility]
--- OUTSIDE RECORDS SUMMARY | 2025-02-28 15:47 | XMS_ITS | Clinical Summary ---
Author Organization [facility] Address [address] [facility] [address] [place] [address] Phone Care Team Providers Care Repossession Agent Name Role Phone Zhao Mendoza MD Primary Care Provider + Zhao Mccabe MD Unavailable [phone] Eugene Márquez MD Unavailable [phone] Solo Hanley MD Unavailable [phone] Allergies Active Allergy Reactions Criticality Noted Date Comments Amoxil (Amoxicillin) Rash Medium 08/19/2014 Bactrim (Sulfamethoxazole-Trimethoprim ) 08/19/2014 Cartia Xt (Diltiazem Hcl) Unknown 08/19/2014 Ketoprofen Rash Low 08/19/2014 Percodan (Oxycodone Yre-Ukpfrxkpd-Nyd) Other (See Comments) 08/20/2002 GI upset Vasotec [...] needed. Reported on 03/15/2016 Active Ca cit-D3-mag#11-z hvd-drbd-fsy-thomas r (CALTRATE 600+D) 600 mg calcium- 800 [...] had the outside scan sent to the [facility] and informally reread by the [facility] chest radiologist, Dr. Boom Carvajal on 09/05/2019: [...] 012 Overview (04/26/2014): H/O Adenocarcinoma of lung Encounters Date Type Department Care Team Description 02/27/2025 Orders Only VIRTUAL DEPARTMENT [address] [place] [address] Solo Hanley MD 02/25/2025 2:13 PM EST - 02/25/2025 11:59 PM EST Hospital Encounter [facility] - CT, [address] [place] [address] [place] [address] Solo Hanley MD Arrived Discharge Disposition: Home or Self Care 02/06/2024 Procedure Pass [facility] - [facility], [address] [place] [address] [place] [address] 02/06/2024 Procedure Pass [facility] - [facility], [facility] [address] [place] [address] from Last 3 Months Immunizations Immunization Administration Dates Next Due Influenza, [...] Info) Description 03/13/2025 11:30 AM EST Telemedicine [facility] [address] [facility] 7th [place] [address] O'Marifer, Naina Russell, PROPERTY DISPOSAL OFFICER [address] [address] [email or web address] Health Maintenance Due Date Last Done Comments [...] Name Priority Date/Time Associated Diagnosis Comments CT ABDOMEN/PELVIS (RENAL MASS) WITH AND WITHOUT CONTRAST Routine 02/25/2025 2:57 PM EST Renal mass CT CHEST WITH CONTRAST Routine 2:57 PM EST Renal mass POCT CREATININE/EGFR Routine 11/29/2017 1:26 PM EDT COMPREHENSIVE METABOLIC PANEL (CMP) Routine 04/18/2017 1:19 PM EST Renal mass from Last 3 Months or Most Recently Relevant to Health Maintenance Results * CT CHEST WITH CONTRAST (02/25/2025 2:57 [...] clinician's provided indication for this examination in Epic: * Kidney cancer, follow up; renal mass [...] clinician's provided indication for this examination in [facility]: *Kidney cancer, follow up; renal mass on [...] edited the report originally createdby Chi Esposito. us Solo Hanley MD IMG CT CHEST Final Result * CT ABDOMEN/PELVIS (RENAL MASS) WITH AND WITHOUT CONTRAST (02/25/2025 2:57 PM EST) MGB IMG CHARGEBACK SPECIALIST COMMENT DVT L [facility] Anatomical Region Laterality Modality Abdomen, Pelvis Computed [...] initiated on 02/26/2025 3:26 PM, Message ID [id number]. ATTESTATION: I, Dr. Adarsh Graves as teaching physician, have reviewed the images for this case and if necessary edited the report originally created by Tyson Yepez. Narrative 02/26/2025 3:[address] ABDOMEN/PELVIS (RENAL MASS) WITH AND WITHOUT CONTRAST Referring clinician's provided indication for this examination in Epic: *Urologic cancer, surveillance; renal mass on surveillance [...] clinician's provided indication for this examination in [facility]:*Urologic cancer, surveillance; renal mass on surveillance TECHNIQUE: [...] was initiated on 02/26/2025 3:26 PM,Message ID [id number]. ATTESTATION: I, Dr. Adarsh Graves as teaching physician, have reviewed theimages for this case and if necessary edited the report originally createdby Tyson Yepez. Solo Hanley MD IMG CT ABD/PELVIS Final Result * POCT Creatinine/eGFR (11/29/2017 1:26 PM EDT) Creatinine 0.90 0.60 - 1.50 mg/dl [facility] EGFR 60 >59 mL/min/1.7 3m2 [facility] Comment:If patient is black, multiply result by 1.159. Estimated glomerular filtration rate calculated using the CKD-EPI equation. 11/29/2017 1:26 PM EDT 11/29/2017 1:27 PM EDT us Solo Hanley MD POINT OF CARE TEST ORDERABLES Final Result [facility] [address] [place] [address] * (ABNORMAL) Comprehensive metabolic panel (04/18/2017 1:19 PM EST) SODIUM 143 135 - 145 mmol/L [facility] POTASSIUM 3.7 3.4 - 5.0 mmol/L [facility] CHLORIDE 98 98 - 108 mmol/L [facility] CO2 26 23 - 32 mmol/L [facility] BUN 20 8 - 25 mg/dL [facility] CREATININE 1.01 0.60 - 1.50 mg/dL [facility] GLUCOSE 92 70 - 110 mg/dL [facility] ALBUMIN 4.1 3.3 - 5.0 g/dL [facility] TOTAL PROTEIN 7.9 6.0 - 8.3 g/dL [facility] CALCIUM 10.4 8.5 - 10.5 mg/dL [facility] ALKALINE PHOSPHATASE 81 30 - 100 U/L [facility] TOTAL BILIRUBIN 0.5 0.0 - 1.0 mg/dL [facility] AST 29 9 - 32 U/L [facility] ALT 21 7 - 33 U/L [facility] GLOBULIN 3.8 1.9 - 4.1 g/dL [facility] EGFR 53(A) >60 mL/min/1. 73m2 [facility] Comment:The normal range for eGFR is >60 mL/min/1.73m2. If this patient is -Cuban, this patient's race-adjusted eGFR is >60 mL/min/1.73m2 and the abnormal flag should be disregarded. ANION GAP 19(H) 3 - 17 mmol/L [facility] 04/18/2017 1:19 PM EST 04/18/2017 5:15 PM EST Solo Hanley MD LAB BLOOD BKR ORDERABLES Final Result [address] [address] from Last 3 Months or Most Recently Relevant to Health Maintenance Insurance MEDICARE PART A & B Member Subscriber Plan / Payer (Ef fective 2002-Present) Name:Cee Person Member ID:[id number] Relation to Subscriber:Self Name:Cee Person Subscriber ID:[id number] Payer ID:[id number] Group ID:Not on file Type:Medicare Address: [facility] [employer] [facility] [address] [place] [address] [facility] MEDICARE SUPPLEMENT MEDICARE PART A & B MEDICARE SUPPLEMENT MEDICARE PART A & B [facility] MEDICARE SUPPLEMENT MEDICARE PART A & B MEDICARE SUPPLEMENT MEDICARE PART A & B [id number] [place] [address] MEDICARE SUPPLEMENT MEDICARE PART A & B [facility] MEDICARE SUPPLEMENT MEDICARE PART A & B MEDICARE SUPPLEMENT MEDICARE PART A & B [facility] MEDICARE SUPPLEMENT MEDICARE PART A & B [facility] MEDICARE SUPPLEMENT Care Teams Repossession Agent Relationship Specialty Start Date End Date Zhao Mendoza MD [address] [place] [address] [address] [place] [address] PCP - General 09/03/13 Zhao Mccabe MD [address] [facility] [address] [place] [address] Cardiology 08/19/14 Eugene Márquez MD [address] [place] [address] Division [place] [address] [email or web address] General Surgery 11/06/14 Solo Hanley MD [address] [place] [address] [place] [address] [email or web address] Urology 03/22/18 Additional Source Comments The information contained in this document represents components of the legal health record. It is not the complete legal health record.[facility]
--- OUTSIDE RECORDS SUMMARY | 2025-02-28 15:47 | XMS_ITS | Encounter Summary ---
Author Organization [facility] Address [address] [facility] [address] [place] [address] Phone Care Team Providers Care Dryer Feeder Name Role Phone Zhao Mendoza MD Primary Care Provider + Zhao Mccabe MD Unavailable [phone] Eugene Márquez MD Unavailable [phone] Solo Hanley MD Unavailable [phone] Encounter Details Date Type Department Care Team (Late st Contact Info) Description 12/20/2021 Procedure Pass [facility] [address] [place] [address] Social History Tobacco Use Types Packs/Day Years [...] Info) Description 03/13/2025 11:30 AM EST Telemedicine [facility] Clinic [address] [facility] 7th [place] [address] Naina Yip, JANE [address] [address] [email or web address] documented as of this encounter Visit Diagnoses Not on filedocumented in this encounter Additional Health Concerns Assessment Noted Time PHQ-2 Depression Total Score: 0 01/19/20 22 11:22 AM EST documented as of this encounter Care Teams Dryer Feeder Relationship Specialty Start Date End Date Zhao Mendoza MD [address] [place] [address] [place] [address] PCP - General 09/03/13 Zhao Mccabe MD [address] [facility] [address] [place] [address] Cardiology 08/19/14 Eugene Márquez MD [address] [place] [address] Division [place] [address] [email or web address] 11/06/14 Solo Hanley MD [address] [facility] [place] [address] [email or web address] Urology 03/22/18 documented as of this encounter Additional Source Comments The information contained in this document represents components of the legal health record. It is not the complete legal health record.[facility]
--- OUTSIDE RECORDS SUMMARY | 2025-02-28 15:47 | XMS_ITS | Encounter Summary ---
Author Organization [facility] Address [address] [employer] [facility] [address] [place] [address] Phone Care Team Providers Care Pit Supervisor Name Role Phone Zhao Mendoza MD Primary Care Provider + Zhao Mccabe MD Unavailable [phone] Eugene Márquez MD Unavailable [phone] Solo Hanley MD Unavailable [phone] Encounter Details Date Type Department Care Team (Late st Contact Info) Description 01/04/2022 Procedure Pass [facility], [address] [address] Social History Tobacco Use Types Packs/Day Years [...] Info) Description 03/13/2025 11:30 AM EST Telemedicine [facility] [address] [facility] 7th [place] [address] O'Naina Caicedo, COATER ASSOCIATE [address] [place] [address], [place] [address] [email or web address] documented as of this encounter Visit Diagnoses Not on filedocumented in this encounter Additional Health Concerns Assessment Noted Time PHQ-2 Depression Total Score: 0 01/19/20 22 11:22 AM EST documented as of this encounter Care Teams Pit Supervisor Relationship Specialty Start Date End Date Zhao Mendoza MD 299 [facility] [address] [place] [address] PCP - General 09/03/13 Zhao Mccabe MD 300 [facility] [address] [place] [address] Cardiology 08/19/14 Eugene Márquez MD [address] [place] [address] Division [place] [address] [email or web address] General Surgery 11/06/14 Solo Hanley MD [address] [place], [place] [address] [place] [address] [email or web address] Urology 03/22/18 documented as of this encounter Additional Source Comments The information contained in this document represents components of the legal health record. It is not the complete legal health record.[facility]
--- OUTSIDE RECORDS SUMMARY | 2025-02-28 15:47 | XMS_ITS | Clinical Summary ---
Author Organization [facility] Address [address] [place] [address] Phone Care Team Providers Care Assembler Fishing Floats Name Role Phone Physician, Pcp Unknown Primary Care Provider Alda vailable Allergies Active Allergy Reactions Criticality Noted Date Comments Amoxicillin Rash Medium 08/19/2014 Diltiazem Hcl Unknown 08/19/2014 Enalapril Maleate 08/19/2014 Ketoprofen Rash Low 08/19/2014 Oxycodone [id number] Other 08/21/19 03 GI upset Oxycodone-Aspirin 11/05/2024 [...] or shortness of breath. 6.7 g 11 Active Active Problems Problem Noted Date Diagnosed Date Pneumonia 11/03/2024 COPD with acute exacerbation 08/03/2024 Encounters Date Type Department Care Team Description 12/04/2024 2:04 AM EDT - 12/04/2024 7:[address] [facility] [address] [place] [address] Mariano Newton MD COPD exacerbation ([facility] V24, [facility] V28) (Primary Dx) Discharge Disposition: Home or Self Care from Last 3 Months Surgical History Surgery Date Site/Laterality Comments BREAST LUMPECTOMY Left Medical History Medical History Date Comments Hypertension Asthma A-fib ([facility] V24, [facility] V28) Hyperlipidemia COPD (chronic obstructive pulmonary disease) ([facility] V24, [facility] V28) Social History Tobacco Use Types Packs/Day [...] care for your loved ones. For example, early childhood aide classroom or elderly care for an older adult? [...] Orientation Straight 06/22/2024 5: 23 PM EDT Last Filed Vital Signs Vital Sign Reading [...] 12/04/2024 2:52 AM EDT Plan of Treatment Upcoming Encounters Date Type Department Care Team (Late st Contact Info) Description 04/10/2025 1:30 PM EST Office Visit Orthopedic Surgery - [place] [address] [facility] [address] [place] [id number] Jonny Cabrera, DPM [address] [facility] [address] [place] [address] Health Maintenance Due Date Last Done Comments DTaP,Tdap,and Td Vaccines (1 - Tdap) 1954 Pneumococcal Vaccine: 50+ Years (1 of 2 - PCV) 1954 Zoster Vaccines (1 of 2) 1954 RSV Immunization Adult Patients (1 - 1-dose 75+ series) 2012 Cholesterol Screening (Lipid Panel) 02/01/2022 Medicare Annual Wellness Visit 02/01/2022 Depression Screening 03/06/2024 COVID-19 Vaccine ( season) 2024 09/23/2021, 12/29/2020, 06/17/2020, Additional history exists Influenza Vaccine (#1) 2024 , 01/14/2021, 12/05/2019, Additional history exists Social Influencers of Health Screening 08/03/2025 08/03/2024 Falls Risk Assessment 11/04/2025 11/04/2024 Osteoporosis Screening (Bone Density Screening) 11/25/2027 11/24/2017 [...] METABOLIC PANEL STAT 12/04/2024 3:14 AM EDT [facility] DEXA AXIAL SKELETON Routine 11/24/2017 8:34 AM [...] cardiomegaly. 2. Lungs grossly clear. Telerad JEFFERSON ([id number]) -------- FINAL REPORT -------- Dictated By: Steph Garcia Dictated Date: 12/04/2024 09:38 ET Assigned Physician: Steph Garcia Reviewed and Electronically Signed By: Steph Garcia Signed Date: 12/04/2024 09:40 ET Workstation ID: [id number] Transcribed By: Self Edit Transcribed Date: 12/04/2024 [...] borderline cardiomegaly. 2. Lungs grossly clear. Telerad PA ([id number]) -------- FINAL REPORT -------- Dictated By: Steph Garcia Dictated Date: 12/04/2024 09:38 ET Assigned Physician: Steph Garcia Reviewed and Electronically Signed By: Steph Garcia Signed Date: 12/04/2024 09:40 ET Workstation ID: [id number] Transcribed By: Self Edit Transcribed Date: 12/04/2024 09:38 ET us Mariano Newton MD IMG XR PROCEDURES Final Resu lt * 12-Lead ECG (12/04/2024 3:24 AM EDT) Ventricular Rate ECG 56 BPM GEMUSE Atrial Rate 56 BPM GEMUSE P-R Interval 156 ms GEMUSE QRS Duration 100 ms GEMUSE Q-T Interval 454 ms GEMUSE QTc 438 ms GEMUSE R [place] -30 degrees GEMUSE T [place] -107 degrees GEMUSE ECG Interpretation Sinus bradycardia [...] Anterolateral leads QT has lengthened Confirmed by JUAN J DOTY ([id number]) on 12/05/2024 5:37:12 PM GEMUSE 12/04/2024 3:24 AM EDT 12/05/2024 5:37 PM EDT Mariano Newton MD ECG ORDERABLES Final Result GEMUSE * Respiratory virus panel molecular study (12/04/2024 3:16 AM EDT) Adenovirus Detection by PCR Not Detected Not Detected LAB MICROBIOLOGY METHOD 12/04/2024 5:55 AM EDT [facility] Influenza A PCR Not Detected Not Detected LAB MICROBIOLOGY METHOD 12/04/2024 5:55 AM EDT [facility] Influenza B PCR Not Detected Not Detected LAB MICROBIOLOGY METHOD 12/04/2024 5:55 AM EDT [facility] Coronavirus 229E Not Detected Not Detected LAB MICROBIOLOGY METHOD 12/04/2024 5:55 AM EDT [facility] Coronavirus HKU1 Not Detected Not Detected LAB MICROBIOLOGY METHOD 12/04/2024 5:55 AM EDT [facility] Coronavirus OC43 Not Detected Not Detected LAB MICROBIOLOGY METHOD 12/04/2024 5:55 AM EDT [facility] Coronavirus NL63 Not Detected Not Detected LAB MICROBIOLOGY METHOD 12/04/2024 5:55 AM EDT [facility] Parainfluenza Virus 1 Not Detected Not Detected LAB MICROBIOLOGY METHOD 12/04/2024 5:55 AM EDT [facility] Parainfluenza Virus 2 Not Detected Not Detected LAB MICROBIOLOGY METHOD 12/04/2024 5:55 AM EDT [facility] Parainfluenza Virus 3 Not Detected Not Detected LAB MICROBIOLOGY METHOD 12/04/2024 5:55 AM EDT [facility] Parainfluenza Virus 4 Not Detected Not Detected LAB MICROBIOLOGY METHOD 12/04/2024 5:55 AM EDT [facility] RSV PCR Not Detected Not Detected LAB MICROBIOLOGY METHOD 12/04/2024 5:55 AM EDT [facility] Human Metapneumovirus A and B Not Detected Not Detected LAB MICROBIOLOGY METHOD 12/04/2024 5:55 AM EDT [facility] Rhinovirus/Entero virus Not Detected Not Detected LAB MICROBIOLOGY METHOD 12/04/2024 5:55 AM EDT [facility] Bordetella pertussis Not Detected Not Detected LAB MICROBIOLOGY METHOD 12/04/2024 5:55 AM EDT [facility] Bordetella parapertussis Not Detected Not Detected LAB MICROBIOLOGY METHOD 12/04/2024 5:55 AM EDT [facility] Mycoplasma pneumo by PCR Not Detected Not Detected LAB MICROBIOLOGY METHOD 12/04/2024 5:55 AM EDT [facility] Chlamydia pneumoniae Not Detected Not Detected LAB MICROBIOLOGY METHOD 12/04/2024 5:55 AM EDT [facility] SARS COV-2 Not Detected Not Detected LAB MICROBIOLOGY METHOD 12/04/2024 5:55 AM EDT [facility] Swab Both anterior nares / Unknown Non-blood Collection / Unknown 12/04/2024 3:16 AM EDT 12/04/2024 4:54 AM EDT [facility] - 12/04/2024 5:55 AM EDT Testing was performed using the [employer] Respiratory Pathogen PCR Assay. All results must [...] MICROBIOLOGY - GENERAL O RDERABLES Final Result [facility] [address] [place] [address], * (ABNORMAL) CBC auto differential (12/04/2024 3:14 AM EDT) WBC 3.7(L) 4.8 - 10.8 K/mcL LAB HEMETOLOGY METHOD 12/04/2024 5:09 AM EDT [facility] RBC 4.00 3.80 - 4.80 M/mcL LAB HEMETOLOGY METHOD 12/04/2024 5:09 AM [facility] Hemoglobin 11.6 11.5 - 16.0 g/dL LAB HEMETOLOGY METHOD 12/04/2024 5:09 AM [facility] Hematocrit 36.4 35.0 - 47.0 % LAB HEMETOLOGY METHOD 12/04[facility]2024 5:[facility] MCV 90.1 79.0 - 98.0 FL LAB HEMETOLOGY METHOD 12/04/2024 5:09 AM [facility] MCH 28.7 27.0 - 32.0 pcg LAB HEMETOLOGY METHOD 12/04/2024 5:09 AM [facility] MCHC 31.9(L) 32.0 - 37.0 g/dL LAB HEMETOLOGY METHOD 12/04/2024 5:09 AM [facility] RDW 15.4(H) 11.0 - 15.0 % LAB HEMETOLOGY METHOD 12/04/2024 5:09 AM [facility] Platelets 179 130 - 400 K/mcL LAB HEMETOLOGY METHOD 12/04/2024 5:09 AM [facility] MPV 12.2(H) 7.0 - 11.0 FL LAB HEMETOLOGY METHOD 12/04/2024 5:09 AM [facility] NRBC 0.0 <1.0 % LAB HEMETOLOGY METHOD 12/04/2024 5:09 AM [facility] NRBC Absolute 0.00 <0.10 K/mcL LAB HEMETOLOGY METHOD 12/04/2024 5:09 AM [facility] Neutrophils Relative 52.1 % LAB HEMETOLOGY METHOD 12/04/2024 5:09 AM [facility] Lymphocytes Relative 28.6 % LAB HEMETOLOGY METHOD 12/04/2024 5:09 AM [facility] Monocytes Relative 10.2 % LAB HEMETOLOGY METHOD 12/04/2024 5:09 AM [facility] Eosinophils Relative 8.3 % LAB HEMETOLOGY METHOD 12/04/2024 5:09 AM [facility] Basophils Relative 0.5 % LAB HEMETOLOGY METHOD 12/04/2024 5:09 AM [facility] Immature Granulocytes Relative 0.3 % LAB HEMETOLOGY METHOD 12/04/2024 5:09 AM [facility] Neutrophils Absolute 1.95 1.50 - 7.00 K/mcL LAB HEMETOLOGY METHOD 12/04/2024 5:09 AM [facility] Lymphocytes Absolute 1.07 1.00 - 5.00 K/mcL LAB HEMETOLOGY METHOD 12/04/2024 5:09 AM [facility] Monocytes Absolute 0.38 0.20 - 1.00 K/mcL LAB HEMETOLOGY METHOD 12/04/2024 5:09 AM [facility] Eosinophils Absolute 0.31 0.00 - 0.50 K/mcL LAB HEMETOLOGY METHOD 12/04/2024 5:09 AM [facility] Basophils Absolute 0.02 0.00 - 0.20 K/mcL LAB HEMETOLOGY METHOD 12/04/2024 5:09 AM EDT [facility] Immature Granulocytes Absolute 0.01 0.00 - 0.03 K/[facility] LAB HEMETOLOGY METHOD 12/04/2024 5:09 AM EDT [facility] Blood Venous blood specimen / Unknown Venipuncture / Unknown 12/04/2024 3:14 AM EDT 12/04/2024 4:53 AM EDT Mariano Newton MD LAB BLOOD ORDERABLES Final R esult [facility] [address] [place] [address], [place] [phone] * B-Type Natriuretic Peptide (BNP) (12/04/2024 3:14 AM EDT) BNP 61 <=100 pcg/mL LAB CHEMISTRY METHOD 12/04/2024 5:28 AM EDT [facility] Blood Venous blood specimen / Unknown Venipuncture / Unknown 12/04/2024 3:14 AM EDT 12/04/2024 4:53 AM EDT us Mariano Newton MD LAB BLOOD ORDERABLES Final R esult [facility] [address] [place] [address], [place] [phone] * (ABNORMAL) Comprehensive Metabolic Panel (CMP) (12/04/2024 3:14 AM EDT) Sodium 141 133 - 145 mmol/L LAB CHEMISTRY METHOD 12/04/2024 5:30 AM EDT [facility] Potassium 4.1 3.5 - 5.5 mmol/L LAB CHEMISTRY METHOD 12/04/2024 5:30 AM EDT [facility] Comment:Hemolysis present Chloride 103 96 - 110 mmol/L LAB CHEMISTRY METHOD 12/04/2024 5:30 AM [facility] CO2 30 21 - 32 mmol/L LAB CHEMISTRY METHOD 12/04/2024 5:30 AM [facility] Anion Gap 8 3 - 11 LAB CHEMISTRY METHOD 12/04/2024 5:30 AM [facility] Glucose 107(H) 70 - 100 mg/dL LAB CHEMISTRY METHOD 12/04/2024 5:30 AM [facility] BUN 18 5 - 25 mg/dL LAB CHEMISTRY METHOD 12/04/2024 5:30 AM [facility] Creatinine 1.07 0.50 - 1.10 mg/dL LAB CHEMISTRY METHOD 12/04/2024 5:30 AM [facility] eGFR 50(L) >=60 mL/min/1. 73m2 LAB CHEMISTRY METHOD 12/04/2024 5:30 AM [facility] Comment:Calculation based on the Chronic Kidney Disease Epidemiology Collaboration (CKD-EPI) equation refit without adjustment for race. BUN/Creatinine Ratio 16.8 LAB CHEMISTRY METHOD 12/04/2024 5:30 AM [facility] Calcium 9.3 8.5 - 10.5 mg/dL LAB CHEMISTRY METHOD 12/04/2024 5:30 AM [facility] AST (SGOT) 30 10 - 42 unit/L LAB CHEMISTRY METHOD 12/04/2024 5:30 AM [facility] Comment:Hemolysis present ALT (SGPT) 20 10 - 60 unit/L LAB CHEMISTRY METHOD 12/04/2024 5:30 AM [facility] Alkaline Phosphatase 73 42 - 121 unit/L LAB CHEMISTRY METHOD 12/04/2024 5:30 AM [facility] Total Protein 7.2 6.0 - 8.0 g/dL LAB CHEMISTRY METHOD 12/04/2024 5:30 AM EDT [facility] Albumin 3.8 3.2 - 5.0 g/dL LAB CHEMISTRY METHOD 12/04/2024 5:30 AM EDT [facility] Total Bilirubin 0.5 0.0 - 1.4 mg/dL LAB CHEMISTRY METHOD 12/04/2024 5:30 AM EDT [facility] Blood Venous blood specimen / Unknown Venipuncture / Unknown 12/04/2024 3:14 AM EDT 12/04/2024 4:53 AM EDT us Mariano Newton MD LAB BLOOD ORDERABLES Final R esult [facility] [address] [place] [address], [place] [phone] * MEKHI DEXA AXIAL SKELETON (11/24/2017 8:34 AM EDT) Anatomical Region Laterality Modality Mammography 11/24/2017 7:59 AM EDT Narrative 11/24/2017 8:34 AM EDT [facility] Diagnostic Imaging Department [address] [place] [address] Patient: MELY PRIETO /Age/Sex: 1935 - 82 - F Unit#: [id number] Location/Status: SPDIMAM/REG CLI Mnemonic/Ordering Site: MAMDEXAAX/SPMAM Ordering Physician: MARIE PRADO MD Mekhi Dexa [...] probability of hip fracture of 1.4%. Code 46501 Dictating Physician: CLYDE VEGA MD Electronically Signed by: CLYDE VEGA MD Dic Date/Time: 11/24/17831 Sign date/Time: 11/24/17833 Procedure Note Clyde Vega MD - 02/22/2022 [facility] Diagnostic Imaging Department [address] [place] [address] Patient: MELY PRIETO /Age/Sex: 1935 82 - F Unit#: [id number] Location/Status: SPDIMAM/REG CLI Mnemonic/[facility] Ordering Physician: MARIE PRADO MD [facility] Dexa Axial Skeleton - 11/24/17830 HISTORY: The [...] density of the femurs bilaterally is 0.885 gm/ji6siozo is 88% of that of young normals [...] probability of hip fracture of 1.4%. 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 Care Teams Assembler Fishing Floats Relationship Specialty Start Date End Date Physician, Pcp Unknown PCP - General 11/05/24
--- OUTSIDE RECORDS SUMMARY | 2025-02-28 15:47 | XMS_ITS | Encounter Summary ---
Author Organization [facility] Address [address] [facility] [address] [place] [address] Phone Care Team Providers Care Payroll And Benefits Analyst Name Role Phone Zhao Mendoza MD Primary Care Provider + Zhao Mccabe MD Unavailable [phone] Eugene Márquez MD Unavailable [phone] Solo Hanley MD Unavailable [phone] Encounter Details Date Type Department Care Team (Late st Contact Info) Description 03/21/2017 Procedure Pass [facility] [address] [place] [address] Social History Tobacco Use Types Packs/Day Years [...] Info) Description 03/13/2025 11:30 AM EST Telemedicine [facility] [address] [facility] 7th [place] [address] O'Marifer, Naina Russell, JANE [address] [address] [email or web address] documented as of this encounter Visit Diagnoses Not on filedocumented in this encounter Care Teams Payroll And Benefits Analyst Relationship Specialty Start Date End Date Zhao Mendoza MD [address] [facility] [address] [place] [address] PCP - General 09/03/13 Zhao Mccabe MD [address] [facility] [address] [place] [address] Cardiology 08/19/14 Eugene Márquez MD [address] [place] [address] Division [place] [address] [email or web address] General Surgery 11/06/14 Solo Hanley MD [address] [place] [address] [address] [place] [address] [email or web address] Urology 03/22/18 documented as of this encounter Additional Source Comments The information contained in this document represents components of the legal health record. It is not the complete legal health record.[facility]
== END 2025-02-28 15:45 | disposition home or self-care (01) ==
LOC: HO.CT 15:44
PROVIDERS: PCP Internal Medicine; Visit Provider Nurse Practitioner
DX: R41.3 Other amnesia (principal); R26.81 Unsteadiness on feet
CPT/HCPCS: 70450

== ENCOUNTER → 2025-02-28 15:46 | Outpatient (BNV) | payer MEDICARE, SELFPAY | PROVIDERS: PCP Internal Medicine; Visit Provider Specialist | DX: R41.3 Other amnesia (principal); R26.81 Unsteadiness on feet | CPT/HCPCS: 70450 ==

== ENCOUNTER 2025-03-04 10:25 | Outpatient (AMB) | payer MEDICARE, SELFPAY ==
--- OUTSIDE RECORDS SUMMARY | 2023-10-10 06:00 | XMS_ITS ---
Author Organization [facility] [place] Address [address] [facility] [address] [place] [address] Care Team Providers Care Bellhop Service Captain Name Role Phone Migration, Provider Unavailable Unavailable REASON FOR VISIT Sick Visit Encounters Encounter Location Date Provider Diagnosis [facility], [address] [place] [address] 10/10/2023 Provider Migration Plan Of Treatment No Information Progress Notes * SAHIL PRIETOOB: [birth year] (89 yo F)Acc No.[id number]:10/10/2023 Progress Notes Patient: DURGA LEDBETTERSIE Provider: Dell Knowles :1935 A ge:88 Y S ex:Female Date:10/10/2023 Address:[address] [place], [place] [phone] Subjective: * Chief Complaints: * S ick Visit * Ocular Surgical History: Objective: Vision Examination: * Electronic signature of Prov ider Migration on 03/04/2025 at 01:55 PM EST Sign off status: Pending * Provider: Dell Knowles Date: 0 10/10/2023 Generated for Fran javed/Yousif/eTransmitting on: 01:55 PM EST
--- OUTSIDE RECORDS SUMMARY | 2023-11-30 05:00 | XMS_ITS ---
Author Organization [facility] [place] Address [address] [facility] [address] [place] [address] Care Team Providers Care Semiconductor Lab Technician Name Role Phone Migration, Provider Unavailable Unavailable REASON FOR VISIT CPX Encounters Encounter Location Date Provider Diagnosis [facility], [address] [place] [address] 11/30/2023 Provider Migration Plan Of Treatment No Information Progress Notes * SAHIL PRIETOOB: [birth year] (89 yo F)Acc No.[id number]:11/30/2023 Progress Notes Patient: DURGA LEDBETTERSIE Provider: Dell Knowles :1935 A ge:88 Y S ex:Female Date:11/30/2023 Address:[address] [place], [place] [phone] Subjective: * Chief Complaints: * C PX * Ocular Surgical History: Objective: Vision Examination: * Electronic signature of Prov ider Migration on 03/04/2025 at 01:55 PM EST Sign off status: Pending * Provider: Dell fraser Migration Date: 0 11/30/2023 Generated for Fran javed/Yousif/eTransmitting on: 1 01:55 PM EST
--- OUTSIDE RECORDS SUMMARY | 2024-02-29 10:45 | XMS_ITS ---
Author Organization [facility] [place] Address [address] [facility] [address] [place] [address] Care Team Providers Care Software Licensing Specialist Name Role Phone Migration, Provider Unavailable Unavailable REASON FOR VISIT Follow-up Appt Encounters Encounter Location Date Provider Diagnosis [address] [place] [address] 02/29/2024 Provider Migration Plan Of Treatment No Information Progress Notes * CONNER DURGAAMAOB: [birth year] (89 yo F)Acc No.[id number]:02/29/2024 Progress Notes Patient: MELY LEDBETTER Provider: Dell fraser Migration :1935 A ge:88 Y S ex:Female Date:02/29/2024 Address:[address] [place], [place] [phone] Subjective: * Chief Complaints: * F ollow-up Appt * Ocular Surgical History: Objective: Vision Examination: * Electronic signature of Prov ider Migration on 03/04/2025 at 01:55 PM EST Sign off status: Pending * Provider: Dell fraser Migration Date: 05/01/2023 Generated for Fran javed/Yousif/eTransmitting on: 01:55 PM EST
--- OUTSIDE RECORDS SUMMARY | 2024-03-04 09:00 | XMS_ITS ---
Author Organization [facility] [place] Address [address] [facility] [address] [place] [address] Care Team Providers Care Helpdesk Technician Name Role Phone Migration, Provider Unavailable Unavailable REASON FOR VISIT Follow-up Appt Encounters Encounter Location Date Provider Diagnosis [address] [place] [address] 03/04/2024 Provider Migration Plan Of Treatment No Information Progress Notes * CONNER DURGAAMAOB: [birth year] (89 yo F)Acc No.[id number]:03/04/2024 Progress Notes Patient: MELY LEDBETTER Provider: Dell fraser Migration :1935 A ge:88 Y S ex:Female Date:03/04/2024 Address:[address] [place], [place] [phone] Subjective: * Chief Complaints: * F ollow-up Appt * Ocular Surgical History: Objective: Vision Examination: * Electronic signature of Prov ider Migration on 03/04/2025 at 01:56 PM EST Sign off status: Pending * Provider: Dell fraser Migration Date: Generated for Fran javed/Yousif/eTransmitting on: 01:56 PM EST
--- OUTSIDE RECORDS SUMMARY | 2024-07-01 05:00 | XMS_ITS ---
Author Organization [facility] [place] Address [address] [facility] [address] [place] [address] Care Team Providers Care Maintainability Engineer Name Role Phone Kenneth Parks Unavailable [phone] REASON FOR VISIT Follow-up Appt Encounters Encounter Location Date Provider Diagnosis [facility], [address] [place] [address] 07/01/2024 Kenneth Parks Plan Of Treatment No Information Progress Notes * LISSY PRIETOSHAZIAOB: [birth year] (89 yo F)Acc No.[id number]:07/01/2024 Progress Notes Patient: MELY LEDBETTER Provider: Oli PAULINO :1935 A ge:89 Y S ex:Female Date:07/01/2024 Address:[address] [place], [place] [phone] Subjective: * Chief Complaints: * F ollow-up Appt * Ocular Surgical History: Objective: Vision Examination: * Electronic signature of Florencio Parks PA-C on 03/04/2025 at 01:56 PM EST Sign off status: Pending * Provider: Oli PAULINO Date: 0 07/01/2024 Generated for Fran javed/Yousif/Uziel on: 01:56 PM EST
--- OUTSIDE RECORDS SUMMARY | 2025-02-28 06:15 | XMS_ITS ---
Author Organization [facility] [place] Address [address] [place] [address] Care Team Providers Care Ehr Trainer Name Role Phone Shilpa Joya Unavailable [phone] Allergies Allergen (clinical drug ingredient) Drug/Non Drug Allergy documented on EMR Reaction Allergy Type Onset Date Status Yellow Dye #6 (Ayer Yellow) anaphylaxis Drug Allergy Active REASON FOR VISIT eliquis Medications Medication SIG (Take, Route, Frequency, Duration) Notes Start Date End Date Status Losartan Potassium 50 MG Tablet 1 tablet Orally Once a day Active Ventolin HFA 108 (90 Base) MCG/ACT Aerosol Solution 1 puff as needed Inhalation every 4 hrs; Duration: 90 days As needed Active Caltrate 600+D Plus Minerals Active Losartan Potassium-HCTZ 50-12.5 MG Tablet 1 tablet Orally Once a day; Duration: 90 days 11/20/2024 Active Atorvastatin Calcium 40 MG Tablet Take 1 tablet by mouth once daily Orally Once a day; Duration: 30 days Active amLODIPine Besylate 10 MG Tablet 1 tablet Orally Once a day Not-Taking Aspirin 81 MG Tablet Chewable 1 tablet Orally Once a day Not-Taking Trelegy Ellipta 200-62.5-25 MCG/ACT Aerosol Powder Breath Activated 1 puff Inhalation Once a day; Duration: 90 days Not-Taking prednisoLONE Not-Jc ing Eliquis 2.5 MG Tablet 1 tablet Orally twice a day; Duration: 90 days 02/28/2025 Active Azelastine-Fluticasone 137-50 MCG/ACT Suspension 1 spray in each nostril Nasally Twice a day Not-Taking Cefuroxime Sodium 7 days left Not-Taking Azithromycin 250 MG Tablet as directed Orally 3 days left Not-Takin g Albuterol Sulfate (2.5 MG/3ML) 0.083% Nebulization Solution 3 mL as needed Inhalation every 6 hrs; Duration: 90 days J44.9 diagnosis code 12/25/2024 Active Encounters Encounter Location Date Provider Diagnosis [facility], [address] [address] 02/28/2025 Shilpa Joya 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 Assessments Encounter Date Diagnosis (ICD Code) Assessment Notes Treatment Notes Treatment Clinical Notes Section Notes 02/28/2025 Acute embolism and thrombosis of unspecified vein (ICD-10 - I82.90) Plan Of Treatment Medication Medication Name Sig Start Date Stop Date Notes Eliquis 2.5 MG Tablet 1 tablet Orally tw ice a day; Duration: 90 days 02/28/2025 Progress Notes * SAHIL PRIETOOB: 938 (89 yo F)Acc No.[id number]:02/28/2025 Patient: Queta MELY HAMMONDS Provider: Lu Joya :1935 A ge:89 Y S ex:Female Date:02/28/2025 Address:[address] [place], [place] [id number] Subjective: * Chief Complaints: * E liquis * Hospitalization/Major Diagno stic Procedure: breathing trouble 2024 * Medications: T akingLosartan Potassium 50 MG Tablet 1 tablet Orally Once a day Caltrate 600+D Plus Minerals Ventolin HFA 108 (90 Base) MCG/ACT Aerosol Solution 1 puff as needed Inhalation every 4 hrs As neededAtorvastatin Calcium 40 MG Tablet Take 1 tablet by mouth once daily Orally Once a day Losartan Potassium-HCTZ 50-12.5 MG Tablet 1 tablet Orally Once a day Albuterol Sulfate (2.5 MG/3ML) 0.083% Nebulization Solution 3 mL as needed Inhalation every 6 hrs J44.9 diagnosis codeTaking Losartan Potassium 50 MG Tablet 1 tablet Orally Once a day Taking Caltrate 600+D Plus Minerals Taking Ventolin HFA 108 (90 Base) MCG/ACT Aerosol Solution 1 puff as needed Inhalation every 4 hrs As neededTaking Atorvastatin Calcium 40 MG Tablet Take 1 tablet by mouth once daily Orally Once a day Taking Losartan Potassium-HCTZ 50-12.5 MG Tablet 1 tablet Orally Once a day Taking Albuterol Sulfate (2.5 MG/3ML) 0.083% Nebulization Solution 3 mL as needed Inhalation every 6 hrs J44.9 diagnosis codeNot-TakingAzithromycin 250 MG Tablet as directed Orally , Notes to Pharmacist: 3 days leftCefuroxime Sodium , Notes to Pharmacist: 7 days leftAzelastine-Fluticasone 137-50 MCG/ACT Suspension 1 spray in each nostril Nasally Twice a day Aspirin 81 MG Tablet Chewable 1 tablet Orally Once a day amLODIPine Besylate 10 MG Tablet 1 tablet Orally Once a day Trelegy Ellipta 200-62.5-25 MCG/ACT Aerosol Powder Breath Activated 1 puff Inhalation Once a day prednisoLONE Not-Taking Azithromycin 250 MG Tablet as directed Orally , Notes to Pharmacist: 3 days leftNot-Taking Cefuroxime Sodium , Notes to Pharmacist: 7 days leftNot-Taking Azelastine-Fluticasone 137-50 MCG/ACT Suspension 1 spray in each nostril Nasally Twice a day Not-Taking Aspirin 81 MG Tablet Chewable 1 tablet Orally Once a day Not-Taking amLODIPine Besylate 10 MG Tablet 1 tablet Orally Once a day Not-Taking Trelegy Ellipta 200-62.5-25 MCG/ACT Aerosol Powder Breath Activated 1 puff Inhalation Once a day Not-Taking prednisoLONE * Allergies: Y ellow Dye #6 (Ayer Yellow): anaphylaxis - Criticality High Assessment: * Assessment: 1. A cute embolism and thrombosis of unspecified vein - I82.90 Plan: * Treatment: * Electronic signature of Lavon her Etiennemyles on 03/04/2025 at 01:55 PM EST Sign off status: Pending * Provider: Lu Joya Date: 05/01/2024 Generated for Fran Raya/Uziel on: 01:55 PM EST
--- NOTE | 2025-03-04 10:26 | MHC.OFFVIS ---
Vital Signs 03/04/25 10:37 Height 5 ft 5.5 in Weight 131 lb BMI 21.5 BP 129/51 L Blood Pressure Location Lt brachial Position Sitting Respiration 16 Pulse 66 Pulse Source Pulse Oximeter Intake Visit Reasons: 6week RS Multiple Wire Sawyer Required: No Accompanied by: Son Allergies yellow dye Allergy (Unknown, Verified 03/04/25 10:39) Unknown HPI Comments Details: Cee is an 89 year old female patient with a past medical history of asthma, cancer, COPD, and hypertension who is presenting to the clinic today with her son for a follow-up visit regarding increased forgetfulness. At the time of our initial evaluation, it was reported that over the course of the last 6 months she had an increase in gait instability and forgetfulness. Her family had noticed some intermittent forgetfulness including forgetting names of her children this was happening rarely. Over same time she also worsening of her movements and mobility though the patient did attributed to lack of physical activity. Physical therapy has been useful difference in her walking. She had a fall in May of 2024 in 1 near fall in the summer but otherwise has not had any recent or recurrent falls. At time of last visit, we performed a mini-mental evaluation with a score of 22/30. I ordered a TSH and B12 level as well as a CT of the brain to evaluate for any structural causes of memory decline and to evaluate for ventricle size given reports of imbalance and memory decline. I did discuss with them options for cognitive support including donepezil and memantine however they declined at that time. Her B12 and TSH levels are normal and her CT scan is still officially pending. I was able to review the images today with the patient and her son. I do see some obvious global atrophy perhaps worse in the areas of the parietal lobe raising some concern for Alzheimer's dementia. The patient and her son today report no major changes in her health or symptoms. They do mentioned that her last month. They are coping well at this time. Memory evaluation from 01/01/2025: Onset of memory changes: Changes over the last 6 months or so Rate of progression: Slow Cognitive: Difficulty remembering upcoming events:Yes Getting lost:Does not walk or drive alone Difficulty keeping track of time:No Difficulty finding appropriate words:Sometimes Difficulty making decisions or problem-solving:No Functional: Difficulty writing checks, paying bills: Family has taken over her finances Difficulty driving a car:Does not drive Difficulty shopping alone:Family goes grocery shopping for her Difficulty performing household tasks:Yes, family assists with this Difficulty managing own medications:Family assists Difficulty pursuing hobbies/leisure activities:Yes, due to her own health and 's health Change in gait:Yes, she feels weaker and less balanced Social activities: Difficulty holding conversation: No Decreased social activity with family/friends:No Less cooperative:No Less aware of others feeling/her full:No Less concerned about bathing/dressing/grooming: No Behavioral: Sad, depressed:No Anxious, worried:No Inpatient, fidgety:No Acts impulsively, disinhibited:No Change appetite or weight:No Change in sleep pattern, daytime fatigue:No Hallucinations:No PFSH Medical History (Updated 01/01/25 @ 10:58 by Rozina Mello CNP) Asthma Forgetfulness Essential hypertension HLD (hyperlipidemia) COPD (chronic obstructive pulmonary disease) Surgical History (Updated 01/01/25 @ 10:11 by Heri Monge CMA) Previous back surgery H/O: hysterectomy Review of Systems Const All systems reviewed & are unremarkable except as noted in HPI and below Physical Exam Vital Signs: Last Vital Signs Pulse 66 03/04/25 10:37 Resp 16 03/04/25 10:37 BP 129/51 L 03/04/25 10:37 BMI result Body Mass Index 21.5 Const General: cooperative, healthy appearing, comfortable and no acute distress Nutritional Appearance: well nourished Orientation/consciousness: patient oriented x3 Limitations: no limitations HEENT Head: Yes normal to inspection and Yes normocephalic Eyes General: appearance normal, both eyes and all related structures Visual Navarro: normal visual navarro by confrontation Alignment and Position: alignment normal Periorbital: periorbital findings normal Eyelids: Yes eyelids normal Conjunctivae: conjunctivae normal Sclerae: sclerae normal Neuro General: patient oriented x3 and tone normal Cranial nerves: Yes CN's II-XII intact bilaterally Gait exam (Neuro): Wide-based gait present, Assisted gait required Gait assisted method: walker and Other gait observations present (Slow ) Motor exam (neuro): no tremor noted Romberg Test: Negative Pupils: Normal pupillary reactivity/response: bilateral Psych Appearance: grossly normal Mental Status: mental status grossly normal Speech and movement: Normal speech and movement present and Clear speech present Affect: normal affect Attitude: cooperative Thought process: Normal thought process present Thought content: Normal thought content present Insight: Good insight present (Psych) Judgement: Good judgement present (Psych) Assessment & Plan Assessment & Plan (1) Gait instability: Code(s): R26.81 - Unsteadiness on feet Category: Medical (2) Memory change: Code(s): R41.3 - Other amnesia Category: Medical Plan Cee is an 89 year old female patient with a past medical history of asthma, cancer, COPD, and hypertension who is presenting to the clinic today with her son for a follow-up visit regarding increased forgetfulness. TSH and B12 level are normal. CT scan does reveal significant atrophy especially to the parietal areas raising some concern possibility of Alzheimer's dementia however official radiology report is not yet back. I discussed in depth utilization of memory supportive medications such as donepezil and memantine again today. I printed out education and gave to patient and her son. They will think about these options and we will discuss further at the time of our follow up in approximately 3 months. 30 minutes spent for today's visit including review of imaging personally and again with the patient and her son, history taking, exam, and extensive review of medications including education printouts. Coding Level of Care Code Est Pt Level 4 (01675) Diagnoses Gait instability R26.81 Memory change R41.3
[2025-03-04 10:37] VITALS: BP 129/51; PULSE 66; RESP 16; BMI 21.5
--- OUTSIDE RECORDS SUMMARY | 2025-03-04 13:55 | XMS_ITS | Patient Health Record ---
Author Organization [facility], [place] Address [address] [place] [address] Care Team Providers Care Element Winding Machine Tender Name Role Phone JelaniKenneth lima Unavailable [phone] Migration, Provider Unavailable Unavailable Shilpa Joya Unavailable [phone] Consuelo Can Unavailable [phone] Allergies Allergen (clinical drug ingredient) Drug/Non Drug Allergy documented on EMR Reaction Allergy Type Onset Date Status Yellow Dye #6 (Chandler Yellow) anaphylaxis Drug Allergy Active Reason For Referral Reason pt presents with son who requests she see Dr. 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) Referral Organization [facility] Referring Provider First Name Consuelo Referring Provider Last Name Pamella Referred Provider Specialty Neurology Referral Priority Routine Reason Patient's son believ es she is aspirating Diagnosis 1 Pneumonitis due to i nhalation of food and vomit (J69.0) Referral Organization [facility] Referring Provider First Name Consuelo Referring Provider Last Name Pamella Referred Provider Specialty Speech and l anguage therapist Referral Priority Routine Reason worsening COPD Diagnosis 1 COPD, 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) Referral Organization [facility] Referring Provider First Name Consuelo Referring Provider Last Name Pamella Referred Provider Specialty Pulmonary Di seases Referral Priority Routine Reason Patient Need attenti on to her thickened nails and has seen this practice previously. Dr. Kana Giron Diagnosis 1 Onychogryphosis (L60 .2) Referral Organization [facility] Referring Provider First Name Consuelo Referring Provider Last Name Pamella Referred Provider Specialty Podiatry Referral Priority Routine Reason Patient with thicken ed nails on both feet. Patient is known to your practice Diagnosis 1 Onychogryphosis (L60 .2) Referral Organization [facility] Referring Provider First Name Consuelo Referring Provider Last Name Can Referred Provider Specialty Podiatry Referral Priority Routine Reason Patient with c/o lef t eye dryness and itchiness with the skin surrounding the eye now discolored Diagnosis 1 Dry eye of left side (H04.122) Referral Organization [facility] Referring Provider First Name Consuelo Referring Provider [...] Status W/U Status Risk Notes Problem Hyperlipidemia (31945090) Hyperlipidemia, unspecified (E78.5) Active confirmed Problem Essential hypertension (77869744) Essential (primary) hypertension (I10) Active confirmed Problem Uncomplicated asthma (disorder) (028915009) Unspecified asthma, uncomplicated (J45.909) Active confirmed Problem Chronic obstructive pulmonary disease (68774699) COPD, 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) Active confirmed Problem Acute exacerbation of chronic obstructive airways disease (317842973) COPD exacerbation (J44.1) Active confirmed Problem Chronic obstructive pulmonary disease (64004407) COPD, moderate (J44.9) Active confirmed Vital Signs Heart Rate 78 /min 02/20/2025 [phone] Temperature 98.6 degrees Fahrenheit 11/08/2024 Respiratory Rate 16 /min 02/20/2025 [phone] Height-cm 167.64 cm 02/20/2025 [phone] Oximetry 99 % 02/20/2025 [phone] Blood pressure diastolic 76 mm Hg 02/20/2025 [phone] Weight-kg 56.25 kg 02/20/2025 [phone] Height 66 in 02/20/2025 [phone] Blood pressure systolic 130 mm Hg 02/20/2025 [facility]- [id number] Weight 124 lbs 02/20/2025 [phone] BMI 20.01 kg/m2 02/20/2025 [phone] Encounters Encounter Location Date Provider Diagnosis [facility], [address] [address] 03/04/2024 Provider Migration [facility] [place] [facility], [address] [address] 07/01/2024 Kenneth Parks [facility] [place] [facility], [address] [address] 02/28/2025 Shilpa Joya 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 [facility], [address] [address] 10/30/2024 Consuelo Can Unspecified asthma, uncomplicated J45.909 [facility], [address] [address] 11/08/2024 Consuelo Can COPD, severe J44.9 ; Hyperlipidemia, unspecified E78.5 ; Essential (primary) hypertension I10 and Hospital discharge follow-up Z09 [facility], [address] [address] 12/25/2024 Consuelo Cna COPD, severe J44.9 [facility], [place] [address] [place] [address] 02/20/2025 Consuelo Can Onychogryphosis L60. 2 ; Dry eye of left side H04.122 and Chronic obstructive pulmonary disease, unspecified COPD type J44.9 [facility] [place] [address] [place] [address] 11/20/2024 Shilpa Joya [facility] [place] [address] [place] [address] 11/06/2024 Consuelo Can [facility] [place] [address] [place] [address] 12/09/2024 Consuelo Can [facility] [place] [address] [place] [address] 12/09/2024 Shilpa Joya [facility], [address] [place] [address] 01/11/2025 Consuelo Can Assessments Encounter Date Diagnosis [...] COPD, severe (ICD-10 - J44.9) patient into e office today for a [...] today with her son as prompted by GIANFRANCO and most recent hospitalization to obtain a [...] Coverage Start Date Coverage End Date A Nest[employer], [employer] [address] [place] [address] [id number] MELY RICHARDSON Self - patient is the insured [facility] Care Options [address] [place] [address] [id number] MELY RICHARDSON Self - patient is the insured Medical (General) History Hospitalization History Reason Date(Month/Year) breathing trouble 2024
--- OUTSIDE RECORDS SUMMARY | 2025-03-04 13:55 | XMS_ITS | Encounter Summary ---
Author Organization [facility] Address [address] [place] [address] Phone Care Team Providers Care Police Stenographer Name Role Phone Zhao Mendoza MD Primary Care Provider + Zhao Mccabe MD Unavailable [phone] Eugene Márquez MD Unavailable [phone] Solo Hanley MD Unavailable [phone] Encounter Details Date Type Department Care Team (Late st Contact Info) Description 04/18/2017 Procedure Pass [facility] [address] [place] [address] Social History Tobacco Use Types Packs/Day Years [...] Info) Description 03/13/2025 11:30 AM EST Telemedicine [facility] [address] [place] [address] O'Naina Caicedo, JANE [address] [address] [email or web address] documented as of this encounter Visit Diagnoses Not on filedocumented in this encounter Care Teams Police Stenographer Relationship Specialty Start Date End Date Zhao Mendoza MD [address] [place] [address] PCP - General 09/03/13 Zhao Mccabe MD [address] [facility] [address] [place] [address] Cardiology 08/19/14 Eugene Márquez MD [address] [place] [address] Division [place] [address] [email or web address] General Surgery 11/06/14 Solo Hanley MD [address] [place] [address] [address] [place] [address] [email or web address] Urology 03/22/18 documented as of this encounter Additional Source Comments The information contained in this document represents components of the legal health record. It is not the complete legal health record.[facility]
--- OUTSIDE RECORDS SUMMARY | 2025-03-04 13:56 | XMS_ITS | Encounter Summary ---
Author Organization [facility] Address [address] [place] [address] Phone Care Team Providers Care Briefcase Sewer Name Role Phone Zhao Mendoza MD Primary Care Provider + Zhao Mccabe MD Unavailable [phone] Eugene Márquez MD Unavailable [phone] Solo Hanley MD Unavailable [phone] Encounter Details Date Type Department Care Team (Late st Contact Info) Description 06/06/2017 Procedure Pass [facility] MRI. [facility] [address] [address] Social History Tobacco Use Types Packs/Day Years [...] Info) Description 03/13/2025 11:30 AM EST Telemedicine [facility] [address] [facility] [address] [place] [address] O'Naina Caicedo, MARKETING SUPPORT ASSISTANT [address] [address] [place] [address] [email or web address] documented as of this encounter Visit Diagnoses Not on filedocumented in this encounter Care Teams Briefcase Sewer Relationship Specialty Start Date End Date Zhao Mendoza MD [address] [place] [address] PCP - General 09/03/13 Zhao Mccabe MD [address] [place] [address] Cardiology 08/19/14 Eugene Márquez MD [address] [place] [address] Division [place] [address] [email or web address] General [email or web address] 11/06/14 Solo Hanley MD [address] [facility] [address] [place] [address] [email or web address] Urology 03/22/18 documented as of this encounter Additional Source Comments The information contained in this document represents components of the legal health record. It is not the complete legal health record.[facility]
--- OUTSIDE RECORDS SUMMARY | 2025-03-04 13:56 | XMS_ITS | Clinical Summary ---
Author Organization [facility] Address [address] [place] [address] Phone Care Team Providers Care Resaw Machine Operator Name Role Phone Physician, Pcp Unknown Primary Care Provider Alda vailable Allergies Active Allergy Reactions Criticality Noted Date Comments Amoxicillin Rash Medium 08/19/2014 Diltiazem Hcl Unknown 08/19/2014 Enalapril Maleate 08/19/2014 Ketoprofen Rash Low 08/19/2014 Oxycodone Qdt-Vsfwdzuso-Cxe Other 08/21/19 03 GI upset Oxycodone-Aspirin 11/05/2024 [...] EDT - 12/04/2024 7:06 AM EDT Emergency [facility] Emergency [address] [place] [address] Mariano Newton MD COPD exacerbation ([facility] V24, [facility] V28) (Primary Dx) Discharge Disposition: Home or Self Care from Last 3 Months Surgical History Surgery Date Site/Laterality Comments BREAST LUMPECTOMY Left Medical History Medical History Date Comments Hypertension Asthma A-fib ([facility] V24, [facility] V28) Hyperlipidemia COPD (chronic obstructive pulmonary disease) ([facility] V24, [facility] V28) Social History Tobacco [...] care for your loved ones. For example, school childcare attendant or elderly care for an older adult? [...] PM EST Office Visit Orthopedic Surgery - [address] [place] [address] Jonny Cabrera, DPM [address] [facility] [address] [place] [address] Health Maintenance Due Date Last Done Comments [...] METABOLIC PANEL STAT 12/04/2024 3:14 AM EDT [facility] DEXA AXIAL SKELETON Routine 11/24/2017 8:34 AM [...] cardiomegaly. 2. Lungs grossly clear. Telerad JEFFERSON ([id number]) -------- FINAL REPORT -------- Dictated By: Steph Garcia Dictated Date: 12/04/2024 09:38 ET Assigned Physician: Steph Garcia Reviewed and Electronically Signed By: Steph Garcia Signed Date: 12/04/2024 09:40 ET Workstation ID: [id number] Transcribed By: Self Edit Transcribed Date: 12/04/2024 [...] cardiomegaly. 2. Lungs grossly clear. Telerad PA ([id number]) -------- FINAL REPORT -------- Dictated By: Steph Garcia Dictated Date: 12/04/2024 09:38 ET Assigned Physician: Steph Garcia Reviewed and Electronically Signed By: Steph Garcia Signed Date: 12/04/2024 09:40 ET Workstation ID: [id number] Transcribed By: Self Edit Transcribed Date: 12/04/2024 09:38 ET us Mariano Newton MD IMG XR PROCEDURES Final Resu lt * 12-Lead ECG (12/04/2024 3:24 AM EDT) Ventricular Rate ECG 56 BPM GEMUSE Atrial Rate 56 BPM GEMUSE P-R Interval 156 ms GEMUSE QRS Duration 100 ms GEMUSE Q-T Interval 454 ms GEMUSE QTc 438 ms GEMUSE R [place] -30 degrees GEMUSE T [place] -107 degrees GEMUSE ECG Interpretation Sinus bradycardia [...] LAB MICROBIOLOGY METHOD 12/04/2024 5:55 AM EDT [facility] Influenza A PCR Not Detected Not Detected LAB MICROBIOLOGY METHOD 12/04/2024 5:55 AM EDT [facility] Influenza B PCR Not Detected Not Detected LAB MICROBIOLOGY METHOD 12/04/2024 5:55 AM EDT [facility] Coronavirus 229E Not Detected Not Detected LAB MICROBIOLOGY METHOD 12/04/2024 5:55 AM EDT [facility] Coronavirus HKU1 Not Detected Not Detected LAB MICROBIOLOGY METHOD 12/04/2024 5:55 AM EDT [facility] Coronavirus OC43 Not Detected Not Detected LAB MICROBIOLOGY METHOD 12/04/2024 5:55 AM EDT [facility] Coronavirus NL63 Not Detected Not Detected LAB MICROBIOLOGY METHOD 12/04/2024 5:55 AM EDT [facility] Parainfluenza Virus 1 Not Detected Not Detected LAB MICROBIOLOGY METHOD 12/04/2024 5:55 AM EDT [facility] Parainfluenza Virus 2 Not Detected Not Detected LAB MICROBIOLOGY METHOD 12/04/2024 5:55 AM EDT [facility] Parainfluenza Virus 3 Not Detected Not Detected LAB MICROBIOLOGY METHOD 12/04/2024 5:55 AM EDT [facility] Parainfluenza Virus 4 Not Detected Not Detected LAB MICROBIOLOGY METHOD 12/04/2024 5:55 AM EDT [facility] RSV PCR Not Detected Not Detected LAB MICROBIOLOGY METHOD 12/04/2024 5:55 AM EDT [facility] Human Metapneumovirus A and B Not Detected Not Detected LAB MICROBIOLOGY METHOD 12/04/2024 5:55 AM EDT [facility] Rhinovirus/Entero virus Not Detected Not Detected LAB MICROBIOLOGY METHOD 12/04/2024 5:55 AM EDT [facility] Bordetella pertussis Not Detected Not Detected LAB MICROBIOLOGY METHOD 12/04/2024 5:55 AM EDT [facility] Bordetella parapertussis Not Detected Not Detected LAB MICROBIOLOGY METHOD 12/04/2024 5:55 AM EDT [facility] Mycoplasma pneumo by PCR Not Detected Not Detected LAB MICROBIOLOGY METHOD 12/04/2024 5:55 AM EDT [facility] Chlamydia pneumoniae Not Detected Not Detected LAB MICROBIOLOGY METHOD 12/04/2024 5:55 AM EDT [facility] SARS COV-2 Not Detected Not Detected LAB MICROBIOLOGY METHOD 12/04/2024 5:55 AM EDT [facility] Swab Both anterior nares / Unknown Non-blood Collection / Unknown 12/04/2024 3:16 AM EDT 12/04/2024 4:54 AM EDT [facility] - 12/04/2024 5:55 AM EDT Testing was performed using the OurHist[employer] Respiratory Pathogen PCR Assay. All results must [...] MICROBIOLOGY - GENERAL O RDERABLES Final Result [facility] [address] [place] [address], * (ABNORMAL) CBC auto differential (12/04/2024 3:14 AM EDT) WBC 3.7(L) 4.8 - 10.8 K/mcL LAB HEMETOLOGY METHOD 12/04/2024 5:09 AM EDT [facility] RBC 4.00 3.80 - 4.80 M/mcL LAB HEMETOLOGY METHOD 12/04/2024 5:09 AM [facility] Hemoglobin 11.6 11.5 - 16.0 g/dL LAB HEMETOLOGY METHOD 12/04/2024 5:09 AM [facility] Hematocrit 36.4 35.0 - 47.0 % LAB HEMETOLOGY METHOD 12/04/2024 5:[facility] MCV 90.1 79.0 - 98.0 FL LAB HEMETOLOGY METHOD 12/04/2024 5:09 AM [facility] MCH 28.7 27.0 - 32.0 pcg LAB HEMETOLOGY METHOD 12/04/2024 5:09 AM [facility] MCHC 31.9(L) 32.0 - 37.0 g/dL LAB HEMETOLOGY METHOD 12/04/2024 5:09 AM [facility] RDW 15.4(H) 11.0 - 15.0 % LAB HEMETOLOGY METHOD 12/04/2024 5:09 AM [facility] Platelets 179 130 - 400 K/mcL LAB HEMETOLOGY METHOD 12/04/2024 5:09 AM [facility] MPV 12.2(H) 7.0 - 11.0 FL LAB HEMETOLOGY METHOD 12/04/2024 5:09 AM [facility] NRBC 0.0 <1.0 % LAB HEMETOLOGY METHOD 12/04/2024 5:09 AM [facility] NRBC Absolute 0.00 <0.10 K/mcL LAB HEMETOLOGY METHOD 12/04/2024 5:09 AM [facility] Neutrophils Relative 52.1 % LAB HEMETOLOGY METHOD 12/04/2024 5:09 AM [facility] Lymphocytes Relative 28.6 % LAB HEMETOLOGY METHOD 12/04/2024 5:09 AM [facility] Monocytes Relative 10.2 % LAB HEMETOLOGY METHOD 12/04/2024 5:09 AM [facility] Eosinophils Relative 8.3 % LAB HEMETOLOGY METHOD 12/04/2024 5:09 AM [facility] Basophils Relative 0.5 % LAB HEMETOLOGY METHOD 12/04/2024 5:09 AM [facility] Immature Granulocytes Relative 0.3 % LAB HEMETOLOGY METHOD 12/04/2024 5:09 AM [facility] Neutrophils Absolute 1.95 1.50 - 7.00 K/mcL LAB HEMETOLOGY METHOD 12/04/2024 5:09 AM [facility] Lymphocytes Absolute 1.07 1.00 - 5.00 K/mcL LAB HEMETOLOGY METHOD 12/04/2024 5:09 AM [facility] Monocytes Absolute 0.38 0.20 - 1.00 K/mcL LAB HEMETOLOGY METHOD 12/04/2024 5:09 AM [facility] Eosinophils Absolute 0.31 0.00 - 0.50 K/mcL LAB HEMETOLOGY METHOD 12/04/2024 5:09 AM [facility] Basophils Absolute 0.02 0.00 - 0.20 K/mcL LAB HEMETOLOGY METHOD 12/04/2024 5:09 AM EDT [facility] Immature Granulocytes Absolute 0.01 0.00 - 0.03 K/[facility] LAB HEMETOLOGY METHOD 12/04/2024 5:09 AM EDT [facility] Blood Venous blood specimen / Unknown Venipuncture / Unknown 12/04/2024 3:14 AM EDT 12/04/2024 4:53 AM EDT Mariano Newton MD LAB BLOOD ORDERABLES Final R esult [facility] [address] [place] [address], [place] [phone] * B-Type Natriuretic Peptide (BNP) (12/04/2024 3:14 AM EDT) BNP 61 <=100 pcg/mL LAB CHEMISTRY METHOD 12/04/2024 5:28 AM EDT [facility] Blood Venous blood specimen / Unknown Venipuncture / Unknown 12/04/2024 3:14 AM EDT 12/04/2024 4:53 AM EDT us Mariano Newton MD LAB BLOOD ORDERABLES Final R esult [facility] [address] [place] [address], [place] [phone] * (ABNORMAL) Comprehensive Metabolic Panel (CMP) (12/04/2024 3:14 AM EDT) Sodium 141 133 - 145 mmol/L LAB CHEMISTRY METHOD 12/04/2024 5:30 AM EDT [facility] Potassium 4.1 3.5 - 5.5 mmol/L LAB CHEMISTRY METHOD 12/04/2024 5:30 AM EDT [facility] Comment:Hemolysis present Chloride 103 96 - 110 mmol/L LAB CHEMISTRY METHOD 12/04/2024 5:30 AM [facility] CO2 30 21 - 32 mmol/L LAB CHEMISTRY METHOD 12/04/2024 5:30 AM [facility] Anion Gap 8 3 - 11 LAB CHEMISTRY METHOD 12/04/2024 5:30 AM [facility] Glucose 107(H) 70 - 100 mg/dL LAB CHEMISTRY METHOD 12/04/2024 5:30 AM [facility] BUN 18 5 - 25 mg/dL LAB CHEMISTRY METHOD 12/04/2024 5:30 AM [facility] Creatinine 1.07 0.50 - 1.10 mg/dL LAB CHEMISTRY METHOD 12/04/2024 5:30 AM [facility] eGFR 50(L) >=60 mL/min/1. 73m2 LAB CHEMISTRY METHOD 12/04/2024 5:30 AM [facility] Comment:Calculation based on the Chronic Kidney Disease Epidemiology Collaboration (CKD-EPI) equation refit without adjustment for race. BUN/Creatinine Ratio 16.8 LAB CHEMISTRY METHOD 12/04/2024 5:30 AM [facility] Calcium 9.3 8.5 - 10.5 mg/dL LAB CHEMISTRY METHOD 12/04/2024 5:30 AM [facility] AST (SGOT) 30 10 - 42 unit/L LAB CHEMISTRY METHOD 12/04/2024 5:30 AM [facility] Comment:Hemolysis present ALT (SGPT) 20 10 - 60 unit/L LAB CHEMISTRY METHOD 12/04/2024 5:30 AM [facility] Alkaline Phosphatase 73 42 - 121 unit/L LAB CHEMISTRY METHOD 12/04/2024 5:30 AM [facility] Total Protein 7.2 6.0 - 8.0 g/dL LAB CHEMISTRY METHOD 12/04/2024 5:30 AM EDT [facility] Albumin 3.8 3.2 - 5.0 g/dL LAB CHEMISTRY METHOD 12/04/2024 5:30 AM EDT [facility] Total Bilirubin 0.5 0.0 - 1.4 mg/dL LAB CHEMISTRY METHOD 12/04/2024 5:30 AM EDT [facility] Blood Venous blood specimen / Unknown Venipuncture / Unknown 12/04/2024 3:14 AM EDT 12/04/2024 4:53 AM EDT us Mariano Newton MD LAB BLOOD ORDERABLES Final R esult [facility] [address] [place] [address], [place] [phone] * MEKHI DEXA AXIAL SKELETON (11/24/2017 8:34 AM EDT) Anatomical Region Laterality Modality Mammography 11/24/2017 7:59 AM EDT Narrative 11/24/2017 8:34 AM EDT [facility] Diagnostic Imaging Department [address] [place] [address] Patient: MELY PRIETO /Age/Sex: 1935 - 82 - F Unit#: [id number] Location/Status: SPDIMAM/REG CLI Mnemonic/Ordering Site: MAMDEXAAX/SPMAM Ordering [...] probability of hip fracture of 1.4%. Code 13533 Dictating Physician: CLYDE VEGA MD Electronically Signed by: CLYDE VEGA MD Dic Date/Time: 11/24/17831 Sign date/Time: 11/24/17833 Procedure Note Clyde Vega MD - 02/22/2022 [facility] Diagnostic Imaging Department [address] [place] [address] Patient: MELY PRIETO /Age/Sex: 1935 82 - F Unit#: [id number] Location/Status: SPDIMAM/REG CLI Mnemonic[facility] Ordering Physician: MARIE PRADO MD [facility] Dexa Axial Skeleton - 11/24/17830 HISTORY: The [...] density of the femurs bilaterally is 0.885 gm/iv1clazf is 88% of that of young normals [...] probability of hip fracture of 1.4%. Code 57893 Dictating Physician: CLYDE VEGA MD Electronically Signed by: CLYDE VEGA MD Dic Date/Time: 11/24/17831 Sign date/Time: 11/24/1734 Marie Prado MD IMG BI PROCEDURES Final Result from Last 3 Months or Most Recently Relevant to Health Maintenance Insurance MEDICARE [facility] Advance Directives Documents on File Type Date Recorded Patient Topology Professor Expl anation Advance Directives and Livin g [...] currently active code status orders. Care Teams Resaw Machine Operator Relationship Specialty Start Date End Date Physician, Pcp Unknown PCP - General 11/05/24
--- OUTSIDE RECORDS SUMMARY | 2025-03-04 13:56 | XMS_ITS | Encounter Summary ---
Author Organization [facility] Address [address] [employer] [facility] [address] [place] [address] Phone Care Team Providers Care Shim Plug Cutter Name Role Phone Zhao Mendoza MD Primary Care Provider + Zhao Mccabe MD Unavailable [phone] Eugene Márquez MD Unavailable [phone] Solo Hanley MD Unavailable [phone] Encounter Details Date Type Department Care Team (Late st Contact Info) Description 01/04/2022 Procedure Pass [facility], [address] [address] Social History Tobacco Use Types Packs/Day Years [...] Info) Description 03/13/2025 11:30 AM EST Telemedicine [facility] 165 [facility] 7th [place] [address] O'Naina Caicedo, BAG PRESSER [address] [place] [address], [place] [address] [email or web address] documented as of this encounter Visit Diagnoses Not on filedocumented in this encounter Additional Health Concerns Assessment Noted Time PHQ-2 Depression Total Score: 0 01/19/20 22 11:22 AM EST documented as of this encounter Care Teams Shim Plug Cutter Relationship Specialty Start Date End Date Zhao Mendoza MD 299 [facility] 322 [place] [address] PCP - General 09/03/13 Zhao Mccabe MD 300 [facility] 154 [place] [address] Cardiology 08/19/14 Eugene Márquez MD [address] [place] [address] Division of [place]acic [place] [address] [email or web address] General [email or web address] 11/06/14 Solo Hanley MD [address] [place], [place] [address]Z-[address] [place] [address] [email or web address] Urology 03/22/18 documented as of this encounter Additional Source Comments The information contained in this document represents components of the legal health record. It is not the complete legal health record.[facility]
--- OUTSIDE RECORDS SUMMARY | 2025-03-04 13:56 | XMS_ITS | Encounter Summary ---
Author Organization [facility] Address [address] [employer] [facility] [address] [place] [address] Phone Care Team Providers Care Journeyman Plumber Name Role Phone Zhao Mendoza MD Primary Care Provider + Zhao Mccabe MD Unavailable [phone] Eugene Márquez MD Unavailable [phone] Solo Hanley MD Unavailable [phone] Encounter Details Date Type Department Care Team (Late st Contact Info) Description 04/18/2016 Procedure Pass [facility] 75 [place] [address] Social History Tobacco Use Types Packs/Day Years [...] Info) Description 03/13/2025 11:30 AM EST Telemedicine [facility] 165 [facility] 7th [place] [address] O'Marifer, Naina Russell, JANE [address] [address] [email or web address] documented as of this encounter Visit Diagnoses Not on filedocumented in this encounter Care Teams Journeyman Plumber Relationship Specialty Start Date End Date Zhao Mendoza MD [address] [facility] [address] [place] [address] PCP - General 09/03/13 Zhao Mccabe MD 300 [facility] 154 [place] [address] Cardiology 08/19/14 Eugene Márquez MD [address] [place] [address] Division [place] [address] [email or web address] General Surgery 11/06/14 Solo Hanley MD [address] [place] [address] [address] [place] [address] [email or web address] Urology 03/22/18 documented as of this encounter Additional Source Comments The information contained in this document represents components of the legal health record. It is not the complete legal health record.[facility]
--- OUTSIDE RECORDS SUMMARY | 2025-03-04 13:56 | XMS_ITS | Encounter Summary ---
Author Organization [facility] Address [address] [employer] [facility] [address] [place] [address] Phone Care Team Providers Care Pastrycook Name Role Phone Zhao Mendoza MD Primary Care Provider + Zhao Mccabe MD Unavailable [phone] Eugene Márquez MD Unavailable [phone] Solo Hanley MD Unavailable [phone] Encounter Details Date Type Department Care Team (Late st Contact Info) Description 02/27/2025 Orders Only VIRTUAL DEPARTMENT [address] [place] [phone] Solo Hanley MD [address] [place], [place] [address] [place] [address] [email or web address] Social History Tobacco Use Types Packs/Day Years [...] Info) Description 03/13/2025 11:30 AM EST Telemedicine [facility] 165 [facility] 7th [place] [address] O'Naina Caicedo, MYSTERY SHOPPER [address] [address] [email or web address] documented as of this encounter Visit Diagnoses Not on filedocumented in this encounter Additional Health Concerns Assessment Noted Time PHQ-2 Depression Total Score: 0 01/19/20 22 11:22 AM EST documented as of this encounter Care Teams Pastrycook Relationship Specialty Start Date End Date Zhao Mendoza MD 299 [facility] 322 [place] [address] PCP - General 09/03/13 Zhao Mccabe MD [address] [place] [address] 154 [place] [address] Cardiology 08/19/14 Eugene Márquez MD [address] [place] [address] Division [place] [address] [email or web address] General Surgery 11/06/14 Solo Hanley MD [address] [place] [address] CPZ[address] [place] [address] [email or web address] Urology 03/22/18 documented as of this encounter Additional Source Comments The information contained in this document represents components of the legal health record. It is not the complete legal health record.[facility]
--- OUTSIDE RECORDS SUMMARY | 2025-03-04 13:56 | XMS_ITS | Clinical Summary ---
Author Organization [facility] Address [address] [facility] [address] [place] [address] Phone Care Team Providers Care Photocopying Equipment Mechanic Name Role Phone Zhao Mendoza MD Primary Care Provider + Zhao Mccabe MD Unavailable [phone] Eugene Márquez MD Unavailable [phone] Solo Hanley MD Unavailable [phone] Allergies Active Allergy Reactions Criticality Noted Date Comments Amoxil (Amoxicillin) Rash Medium 08/19/2014 Bactrim (Sulfamethoxazole-Trimethoprim ) 08/19/2014 Cartia Xt (Diltiazem Hcl) Unknown 08/19/2014 Ketoprofen Rash Low 08/19/2014 Percodan (Oxycodone Dup-Jlwmhxhag-Hwq) Other (See Comments) 08/20/2002 GI upset Vasotec [...] needed. Reported on 03/15/2016 Active Ca cit-D3-mag#11-z boj-ghll-qhp-thomas r (CALTRATE 600+D) 600 mg calcium- 800 [...] had the outside scan sent to the [facility] and informally reread by the [facility] chest radiologist, Dr. Boom Carvajal on 09/05/2019: [...] Description 02/27/2025 Orders Only VIRTUAL DEPARTMENT [address] [place] [address] Solo Hanley MD 02/25/2025 2:13 PM EST - 02/25/2025 11:59 PM EST Hospital Encounter [facility] - CT, Main [place] [address] [place] [address] Solo Hanley MD Discharge Disposition: Home or Self Care 02/06/2024 Procedure Pass [facility] - CT, Main [place] [address] [place] [address] 02/06/2024 Procedure Pass [facility] - [facility], [facility] [address] [place] [address] from Last 3 Months Immunizations Immunization Administration [...] Info) Description 03/13/2025 11:30 AM EST Telemedicine [facility] Urology Clinic 165 [facility] 7th [place] [address] O'Marifer, Naina Russell, CAR RENTAL SALES ASSISTANT [address] [address] [email or web address] Health Maintenance Due Date Last Done Comments [...] clinician's provided indication for this examination in [facility]: *Kidney cancer, follow up; renal mass [...] CONTRAST (02/25/2025 2:57 PM EST) MGB IMG AUTOMOBILE OR TRUCK RENTAL DISPATCHER COMMENT DVT L [facility] Anatomical Region Laterality Modality Abdomen, Pelvis Computed [...] initiated on 02/26/2025 3:26 PM, Message ID [id number]. ATTESTATION: I, Dr. Adarsh Graves as teaching [...] clinician's provided indication for this examination in [facility]:*Urologic cancer, surveillance; renal mass on surveillance [...] was initiated on 02/26/2025 3:26 PM,Message ID [id number]. ATTESTATION: I, Dr. Adarsh Graves as teaching physician, have reviewed theimages for this case and if necessary edited the report originally createdby Tyson Yepez. Solo Hanley MD IMG CT ABD/PELVIS Final Result * POCT Creatinine/eGFR (11/29/2017 1:26 PM EDT) Creatinine 0.90 0.60 - 1.50 mg/dl [facility] EGFR 60 >59 mL/min/1.7 3m2 [facility] Comment:If patient is black, multiply result by 1.159. Estimated glomerular filtration rate calculated using the CKD-EPI equation. 11/29/2017 1:26 PM EDT 11/29/2017 1:27 PM EDT us Solo Hanley MD POINT OF CARE TEST ORDERABLES Final Result [facility] [address] [place] [address] * (ABNORMAL) Comprehensive metabolic panel (04/18/2017 1:19 PM EST) SODIUM 143 135 - 145 mmol/L [facility] POTASSIUM 3.7 3.4 - 5.0 mmol/L [facility] CHLORIDE 98 98 - 108 mmol/L [facility] CO2 26 23 - 32 mmol/L [facility] BUN 20 8 - 25 mg/dL [facility] CREATININE 1.01 0.60 - 1.50 mg/dL [facility] GLUCOSE 92 70 - 110 mg/dL [facility] ALBUMIN 4.1 3.3 - 5.0 g/dL [facility] TOTAL PROTEIN 7.9 6.0 - 8.3 g/dL [facility] CALCIUM 10.4 8.5 - 10.5 mg/dL [facility] ALKALINE PHOSPHATASE 81 30 - 100 U/L [facility] TOTAL BILIRUBIN 0.5 0.0 - 1.0 mg/dL [facility] AST 29 9 - 32 U/L [facility] ALT 21 7 - 33 U/L [facility] GLOBULIN 3.8 1.9 - 4.1 g/dL [facility] EGFR 53(A) >60 mL/min/1. 73m2 [facility] Comment:The normal range for eGFR is >60 mL/min/1.73m2. If this patient is -Albanian, this patient's race-adjusted eGFR is >60 mL/min/1.73m2 and the abnormal flag should be disregarded. ANION GAP 19(H) 3 - 17 mmol/L [facility] 04/18/2017 1:19 PM EST 04/18/2017 5:15 PM EST Solo Hanley MD LAB BLOOD BKR ORDERABLES Final Result [address] [id number] from Last 3 Months or Most Recently Relevant to Health Maintenance Insurance [place] [id number] [facility] MEDICARE SUPPLEMENT MEDICARE PART A & B MEDICARE SUPPLEMENT MEDICARE PART A & B MEDICARE SUPPLEMENT MEDICARE PART A & B MEDICARE SUPPLEMENT MEDICARE PART A & B Member Subscriber Plan / Payer (Ef fective 2002-Present) Name:Cee Person Member ID:[id number] Relation to Subscriber:Self Name:Cee Person Subscriber ID:[id number] Payer ID:[id number] Group ID:Not on file Type:Medicare Address: [address] [place] [id number] [place] [address] MEDICARE SUPPLEMENT MEDICARE PART A & B [facility] MEDICARE SUPPLEMENT MEDICARE PART A & B MEDICARE SUPPLEMENT MEDICARE PART A & B MEDICARE SUPPLEMENT MEDICARE PART A & B [facility] MEDICARE SUPPLEMENT Care Teams Photocopying Equipment Mechanic Relationship Specialty Start Date End Date Zhao Mendoza MD [address] [place] [address] 322 [place] [address] PCP - General 09/03/13 Zhao Mccabe MD 300 [facility] 154 [place] [address] Cardiology 08/19/14 Eugene Márquez MD [address] [place] [address] Division [place] [address] [email or web address] General Surgery 11/06/14 Solo Hanley MD [address] [place] [address]7 [place] [address] Urology 03/22/18 Additional Source Comments The information contained in this document represents components of the legal health record. It is not the complete legal health record.[facility]
--- OUTSIDE RECORDS SUMMARY | 2025-03-04 13:56 | XMS_ITS | Encounter Summary ---
Author Organization [facility] Address [address] [place] [address] Phone Care Team Providers Care Marketing Communications Leader Name Role Phone Zhao Mendoza MD Primary Care Provider + Zhao Mccabe MD Unavailable [phone] Eugene Márquez MD Unavailable [phone] Solo Hanley MD Unavailable [phone] Encounter Details Date Type Department Care Team (Late st Contact Info) Description 02/06/2024 Procedure Pass [facility] Imaging - CT, Main [place] [address] [place] [address] Social History Tobacco Use Types Packs/Day Years [...] Info) Description 03/13/2025 11:30 AM EST Telemedicine [facility] Clinic 165 [facility] 7th [place] [address] O'Marifer, Naina Russell, TARP REPAIRER 1999 [facility] 443 [place] [address] [email or web address] documented as of this encounter Visit Diagnoses Not on filedocumented in this encounter Additional Health Concerns Assessment Noted Time PHQ-2 Depression Total Score: 0 01/19/20 22 11:22 AM EST documented as of this encounter Care Teams Marketing Communications Leader Relationship Specialty Start Date End Date Zhao Mendoza MD 299 [facility] 322 [place] [address] PCP - General 09/03/13 Zhao Mccabe MD 300 [facility] [address] [place] [address] Cardiology 08/19/14 Eugene Márquez MD [address] [place] [address] Division [place] [address] [email or web address] General Surgery 11/06/14 Solo Hanley MD 55 [facility] [address] [place] [address] [email or web address] Urology 03/22/18 documented as of this encounter Additional Source Comments The information contained in this document represents components of the legal health record. It is not the complete legal health record.[facility]
--- OUTSIDE RECORDS SUMMARY | 2025-03-04 13:56 | XMS_ITS | Encounter Summary ---
Author Organization [facility] Address [address] [place] [address] Phone Care Team Providers Care Guard Manager Name Role Phone Zhao Mendoza MD Primary Care Provider + Zhao Mccabe MD Unavailable [phone] Eugene Márquez MD Unavailable [phone] Solo Hanley MD Unavailable [phone] Encounter Details Date Type Department Care Team (Late st Contact Info) Description 02/06/2024 Procedure Pass [facility] Imaging - CT, Main [place] [address] [place] [address] Social History Tobacco Use Types Packs/Day Years [...] Info) Description 03/13/2025 11:30 AM EST Telemedicine [facility] Clinic 165 [facility] 7th [place] [address] O'Marifer, Naina Russell, GYNECOLOGY TEACHER 1999 [facility] 443 [place] [address] [email or web address] documented as of this encounter Visit Diagnoses Not on filedocumented in this encounter Additional Health Concerns Assessment Noted Time PHQ-2 Depression Total Score: 0 01/19/20 22 11:22 AM EST documented as of this encounter Care Teams Guard Manager Relationship Specialty Start Date End Date Zhao Mendoza MD 299 [facility] 322 [place] [address] PCP - General 09/03/13 Zhao Mccabe MD 300 [facility] [address] [place] [address] Cardiology 08/19/14 Eugene Márquez MD [address] [place] [address] Division [place] [address] [email or web address] General [email or web address] 11/06/14 Solo Hanley MD 55 [facility] [address] [place] [address] [email or web address] Urology 03/22/18 documented as of this encounter Additional Source Comments The information contained in this document represents components of the legal health record. It is not the complete legal health record.[facility]
--- OUTSIDE RECORDS SUMMARY | 2025-03-04 13:56 | XMS_ITS | Encounter Summary ---
Author Organization [facility] Address [address] [employer] [facility] [address] [place] [address] Phone Care Team Providers Care Presentation Team Member Name Role Phone Zhao Mendoza MD Primary Care Provider + Zhao Mccabe MD Unavailable [phone] Eugene Márquez MD Unavailable [phone] Solo Hanley MD Unavailable [phone] Encounter Details Date Type Department Care Team (Late st Contact Info) Description 03/21/2017 Procedure Pass [facility] 75 [place] [address] Social History Tobacco Use Types Packs/Day Years [...] Info) Description 03/13/2025 11:30 AM EST Telemedicine [facility] Urology Clinic 165 [facility] 7th [place] [address] O'Marifer, Naina Russell, JANE [address] [address] [email or web address] documented as of this encounter Visit Diagnoses Not on filedocumented in this encounter Care Teams Presentation Team Member Relationship Specialty Start Date End Date Zhao Mendoza MD [address] [facility] [address] [place] [address] PCP - General 09/03/13 Zhao Mccabe MD 300 [facility] 154 [place] [address] Cardiology 08/19/14 Eugene Márquez MD [address] [place] [address] Division [place] [address] [email or web address] General Surgery 11/06/14 Solo Hanley MD [address] [place] [address] [address] [place] [address] [email or web address] Urology 03/22/18 documented as of this encounter Additional Source Comments The information contained in this document represents components of the legal health record. It is not the complete legal health record.[facility]
--- OUTSIDE RECORDS SUMMARY | 2025-03-04 13:56 | XMS_ITS | Encounter Summary ---
Author Organization [facility] Address [address] [employer] [facility] [address] [place] [address] Phone Care Team Providers Care Lead Applications Developer Name Role Phone Zhao Mendoza MD Primary Care Provider + Zhao Mccabe MD Unavailable [phone] Eugene Márquez MD Unavailable [phone] Solo Hanley MD Unavailable [phone] Encounter Details Date Type Department Care Team (Late st Contact Info) Description 12/20/2021 Procedure Pass [facility] [address] [place] [address] Social History Tobacco Use Types Packs/Day Years [...] Info) Description 03/13/2025 11:30 AM EST Telemedicine [facility] Urology Clinic 165 [facility] 7th [place] [address] Naina Yip, JANE [address] [address] [email or web address] documented as of this encounter Visit Diagnoses Not on filedocumented in this encounter Additional Health Concerns Assessment Noted Time PHQ-2 Depression Total Score: 0 01/19/20 22 11:22 AM EST documented as of this encounter Care Teams Lead Applications Developer Relationship Specialty Start Date End Date Zhao Mendoza MD [address] [place] [address] PCP - General 09/03/13 Zhao Mccabe MD 300 [facility] 154 [place] [address] Cardiology 08/19/14 Eugene Márquez MD [address] [place] [address] Division [place] [address] [email or web address] General Surgery 11/06/14 Solo Hanley MD 55 [facility] [place] [address] [email or web address] Urology 03/22/18 documented as of this encounter Additional Source Comments The information contained in this document represents components of the legal health record. It is not the complete legal health record.[facility]
--- OUTSIDE RECORDS SUMMARY | 2025-03-04 13:57 | XMS_ITS | Encounter Summary ---
Author Organization [facility] Address [address] [employer] [facility] [address] [place] [address] Phone Care Team Providers Care Heavy Line Technician Name Role Phone Zhao Mendoza MD Primary Care Provider + Zhao Mccabe MD Unavailable [phone] Eugene Márquez MD Unavailable [phone] Solo Hanley MD Unavailable [phone] Encounter Details Date Type Department Care Team (Late st Contact Info) Description 09/04/2019 Procedure Pass [facility] MRI, [address] 55 [facility], 2nd [place] [address] Social History Tobacco Use Types Packs/Day Years [...] EST Telemedicine [facility] 165 [facility] 7th [place] [address] O'Naina Caicedo, JANE [address] [place] [address] [place] [address] [email or web address] documented as of this encounter Visit Diagnoses Not on filedocumented in this encounter Additional Health Concerns Assessment Noted Time PHQ-2 Depression Total Score: 0 09/17/19 20 7:09 AM EDT documented as of this encounter Care Teams Heavy Line Technician Relationship Specialty Start Date End Date Zhao Mendoza MD 299 [facility] 322 [place] [address] PCP - General 09/03/13 Zhao Mccabe MD 300 [facility] 154 [place] [address] Cardiology 08/19/14 Eugene Márquez MD [address] [place] [address] Division [place] [address] [email or web address] General Surgery 11/06/14 Solo Hanley MD [address] [place], [place] [address]Z[address] [place] [address] [email or web address] Urology 03/22/18 documented as of this encounter Additional Source Comments The information contained in this document represents components of the legal health record. It is not the complete legal health record.[facility]
== END 2025-03-04 11:07 | disposition home or self-care (01) ==
LOC: HO.HSM 10:25
PROVIDERS: PCP Internal Medicine; Visit Provider Nurse Practitioner
DX: R26.81 Unsteadiness on feet (principal); R41.3 Other amnesia
CPT/HCPCS: 99214

== ENCOUNTER → 2025-03-04 10:25 | Outpatient (BNVA) | payer MEDICARE, SELFPAY | PROVIDERS: PCP Internal Medicine; Visit Provider Nurse Practitioner | DX: R26.81 Unsteadiness on feet (principal); R41.3 Other amnesia | CPT/HCPCS: 99212 ==